=== PATIENT | female | born 1960 | race Caucasian/White ===

== ENCOUNTER → 2016-05-30 | Outpatient (CLI) | payer BC ==
--- NOTE | 2016-05-31 12:47 | MAMMOGRAPHY REPORT ---
BILATERAL DIGITAL SCREENING MAMMOGRAM TOMOSYNTHESIS WITH CAD: 05/30/2016 CLINICAL HISTORY: Routine screening. Patient has no complaints. TECHNIQUE: Breast tomosynthesis in addition to standard 2D mammography was performed. Current study was also evaluated with a Computer Aided Detection (CAD) system. COMPARISON: Comparison is made to exams dated: 05/22/2014 mammogram, 05/17/2012 mammogram, 05/12/2010 ma mmogram, 05/05/2009 mammogram - [facility], 04/29/2008, and 05/21/2013 mammogram - [facility]. BREAST COMPOSITION: The tissue of both breasts is heterogeneously dense, which may obscure small ma sses. FINDINGS: There are benign rim calcifications within the left breast. No suspicious mass, architec tural distortion or cluster of microcalcifications is seen. IMPRESSION: ACR BI-RADS CATEGORY 1: NEGATIVE There is no mammographic evidence of malignancy. A 1 year screening mammogram is recommended. The p atient will receive written notification of the results. Approximately 10% of breast cancers are not detected with mammography. A negative mammographic repor t should not delay biopsy if a clinically suggestive mass is present. Keke Hinton M.D. ay/:05/30/2016 17:04:35 Skin Care Instructor: Priyanka Duvall, [facility] letter sent: Normal 1/2 BI-RADS Code: ACR BI-RADS Category 1: Negative
== END | disposition home or self-care (01) ==
LOC: C.MAMM 08:21
PROVIDERS: ATTEND Family Medicine
DX: Z12.31 Encounter for screening mammogram for malignant neoplasm of breast (principal)

== ENCOUNTER → 2017-06-01 | Outpatient (CLI) | payer OTHER ==
--- NOTE | 2017-06-05 12:41 | MAMMOGRAPHY REPORT ---
BILATERAL DIGITAL SCREENING MAMMOGRAM TOMOSYNTHESIS WITH CAD: 06/01/2017 CLINICAL HISTORY: Routine screening. Patient has no complaints. TECHNIQUE: Breast tomosynthesis in addition to standard 2D mammography was performed. Current study was also evaluated with a Computer Aided Detection (CAD) system. COMPARISON: Comparison is made to exams dated: 05/30/2016 mammogram, 05/26/2015 mammogram, 05/22/2014 m ammogram, 05/21/2013 mammogram, 05/17/2012 mammogram, and 05/17/2011 mammogram - [facility]. BREAST COMPOSITION: The tissue of both breasts is heterogeneously dense, which may obscure small mas ses. FINDINGS: No suspicious masses, calcifications, or areas of architectural distortion are noted in ei ther breast. There has been no significant interval change compared to prior exams. IMPRESSION: ACR BI-RADS CATEGORY 1: NEGATIVE There is no mammographic evidence of malignancy. A 1 year screening mammogram is recommended. The pa tient will receive written notification of the results. Approximately 10% of breast cancers are not detected with mammography. A negative mammographic report should not delay biopsy if a clinically suggestive mass is present. Danay Sarmiento M.D. ah/:06/01/2017 15:35:40 Experimental Welder: Priyanka Wahl RT(R)(M), [facility] letter sent: Normal 1/2 BI-RADS Code: ACR BI-RADS Category 1: Negative
== END | disposition home or self-care (01) ==
LOC: C.MAMM 08:12
PROVIDERS: ATTEND Family Medicine
DX: Z12.31 Encounter for screening mammogram for malignant neoplasm of breast (principal)

== ENCOUNTER 2024-07-29 09:34 | Inpatient (IN) ==
[2024-07-29] MEDS: SODIUM CHLORIDE 0.9% 1,000 ML IV ONE (10:20)
[2024-07-29] MEDS: ONDANSETRON INJ 2 MG/ML 2 ML VIAL IV STA (10:20)
[2024-07-29] MEDS: KETOROLAC TROMETHAMINE 15 MG/ML VIAL IV STA (10:23)
[2024-07-29 10:43] LABS: Basophils # (auto) 0.01 K/uL (0.00-0.20); Basophils % (auto) 0.3 %; Eosinophils # (auto) 0.07 K/uL (0.00-0.50); Hematocrit (blood only) 41.5 % (37.0-47.0); Hemoglobin 14.8 g/dl (12.0-16.0); Immature Granulocytes # (auto) 0.02 K/uL (0.01-0.20); Immature Granulocytes % (auto) 0.6 %; Lymphocytes # (auto) 0.59 K/uL (1.20-3.40); Lymphocytes % (auto) 16.7 %; Mean Corpuscular Hemoglobin 34.7 pg (25.0-34.0); Mean Corpuscular Hgb Conc 35.7 g/dL (32.0-36.0); Mean Corpuscular Volume 97.2 fL (80.0-100.0); Mean Platelet Volume 9.4 fL (9.4-12.4); Monocytes # (auto) 0.62 K/uL (0.11-0.59); Monocytes % (auto) 17.6 %; Neutrophils # (auto) 2.22 K/uL (1.40-6.50); Neutrophils % (auto) 62.8 %; Platelet Count 197 K/uL (130-400); RDW Coefficient of Variation 11.9 % (11.5-14.5); RDW Standard Deviation 42.6 fL (36.4-46.3); Red Blood Count 4.27 M/uL (4.20-5.40); White Blood Count 3.53 K/ul (4.8-10.8)
[2024-07-29 11:00] LABS: INR 0.9 (0.9-1.1); Partial Thromboplastin Time 28 Seconds (21-31); Prothrombin Time 9.9 Seconds (9.0-12.0)
[2024-07-29 11:09] LABS: Albumin Level 3.9 gm/dl (3.4-5.0); BUN Creatinine Ratio 19.2 (10-20); Bilirubin Direct 0.3 mg/dl (0-0.2); Bilirubin,Total 0.7 mg/dl (0.2-1.0); Calcium 9.6 mg/dl (8.6-10.3); Creatinine Clr Calc Pharmacy 79.5 ml/min; Potassium 3.3 mmol/L (3.5-5.1); Total Protein 6.5 gm/dl (6.0-8.3)
--- OUTSIDE RECORDS SUMMARY | 2024-07-29 11:12 | External Medical Summary | Summary of Care ---
Author Name Unknown Organization [facility] Address [address] [place] [address] Phone [phone] Care Team Providers Care Dishwasher Name Role Phone Demetria Santos DO Primary Care Provider [phone] Reason for Visit * Reason Comments eRx-Medication Refill Encounter Details Date Type Department Care Team (Late st Contact Info) Description 07/14/2024 Refill Family Practice [facility] [address] [place] [id number] Donald Kapoor MD [address] [place] [id number] HTN, goal below 130/80 Allergies Active Allergy Reactions Criticality Noted Date Comments Influenza Virus Vacc Hives 12/06/2010 documented as of this encounter (statuses as of 07/16/2024) Medications Doxylamine Succinate (Sleep) 25 MG Oral Tablet (Unisom) Take 1 Tablet by mouth at bedtime as needed. Active Nicotine Polacrilex 4 MG Mouth/Throat Gum Take 1 Each by mouth daily first thing in the morning. Active SUMAtriptan Succinate 100 MG Oral Tablet (Imitrex)Indicat ions:Migraine with aura and without status migrainosus, not intractable One pill by mouth at onset of migraine. May repeat in 2 hours but not more than 2 tablets in 24 hours 27 Tablet 3 03/05/20 24 Active amLODIPine Besylate 2.5 MG Oral Tablet (Norvasc)Indicat ions:HTN, goal below 130/80 Take 1 Tablet by mouth in the morning. 90 Tablet 3 03/30/19 25 Active Hydrocortisone (Perianal) 2.5 % External CreamIndications :Hemorrhoids, external without complications Administer into the rectum 2 times a day. For 2 weeks. 28 g 1 03/30/19 25 Active Escitalopram Oxalate 10 MG Oral Tablet (Lexapro)Indicat ions:Depression, major, in remission (HCC) TAKE 1 TABLET BY MOUTH ONCE DAILY IN THE MORNING 30 Tablet 5 04/25/19 25 Active Albuterol Sulfate HFA 108 (90 Base) MCG/ACT Inhalation Aerosol SolutionIndicati ons:Pneumonia of right lung due to infectious organism, unspecified part of lung Inhale 2 Puffs by mouth every 4 hours as needed for Dyspnea or Wheezing. 18 g 05/01/19 25 Active Naproxen 500 MG Oral Tablet (Naprosyn)Indica tions:Chronic midline low back pain without sciatica One pill by mouth twice a day with food. 180 Tablet 1 06/03/19 25 Active Omeprazole 40 MG Oral Capsule Delayed Release (PriLOSEC)Indica tions:Acute gastritis without hemorrhage, unspecified gastritis type TAKE 1 CAPSULE BY MOUTH ONCE DAILY IN THE MORNING 1 HOUR BEFORE FIRST MEAL OF THE DAY. 30 Capsule 1 06/19/19 25 Active Cefuroxime Axetil 250 MG Oral Tablet (Ceftin)Indicati ons:Suspected UTI Take 1 Tablet by mouth in the morning and 1 Tablet before bedtime. Do all this for 5 days. 10 Tablet 07/14/19 25 025 Active Lisinopril 40 MG Oral TabletIndication s:HTN, goal below 130/80 TAKE 1 TABLET BY MOUTH IN THE MORNING 90 Tablet 07/16/19 25 Active Lisinopril 40 MG Oral TabletIndication s:HTN, goal below 130/80 Take 1 Tablet by mouth in the morning. 90 Tablet 1 01/25/20 24 025 Discontinued documented as of this encounter (statuses as of 07/16/2024) Active Problems Problem Noted Date Diagnosed Date PVC (premature ventricular contraction) 04/04/19 20 Allergy to influenza vaccine 03/16/2017 Other seborrheic keratosis 04/22/2013 Neoplasm of uncertain behavior of skin 02/10/201 4 Backache 03/02/2009 Depression, major, in remission Overview (03/02/2009): failed celexa Migraine with aura Overview (03/02/2009): 10+ per year Esophageal reflux documented as of this encounter (statuses as of 07/16/2024) Resolved Problems Problem Noted Date Diagnosed Date Resolved Date Anemia 05/07/2014 03/16/2017 General medical exam 04/16/2014 018 General medical exam 05/03/2013 018 Right shoulder pain 05/03/2013 03/16/19 18 Breast cancer screening 04/12/201206/2017 General medical exam 04/12/2012 018 Acute sinusitis 12/06/2010 07/17/2015 Special screening for malign ant neoplasms, colon 12/06/2010 07/17/2015 Backache 11/26/2009 11/26/2009 ADVANCE DIRECTIVE INFORMATION 12/15/2005 07/17/2015 Overview (12/15/2005): No, Advance Directive brochure given to patient. Generalized osteoarthritis 0 07/17/2015 Overview (03/02/2009): primary back uses celebrex, occ alleve Urticaria 07/17/2015 Overview (03/02/2009): chronic on zyrtec Menopausal and postmenopausal disorder 07/17/2015 Overview (06/23/2010): on premarin documented as of this encounter (statuses as of 07/16/2024) Immunizations Name Administration Dates Next Due COVID-19 mRNA, LNP-s, No Pre serve, 2-Dose Series (Givey) 06/26/2020,06/05/2020 COVID-19, LNP-s, No Preserve , Filiberto-sucrose, Ages 12+ (Givey) 09/14/2021 COVID-19, MRNA-LNP, 24-25, P R, 30MCG/0.3ML, IM, 12YRS AND ABOVE (Givey-[facility]) 12/06/2023 Covid-19, Mrna, Lnp-s, Pf, B ivalent, 30 Mcg, IM, 12 yrs and above (Pfizer) 09/28/2022 Pneumococcal Conjugate Vaccine, 20-valent (Prevn ar20) 03/30/2024 TDAP (age 10 and older)(Boostrix) 09/04/2020 TDAP, Age 7 and older, IM (Adacel) 06/23/2010 Zoster Vaccine Recombinant (Shingrix) 10/30/2018 ,08/03/2018 documented as of this encounter Social History Tobacco Use Types Packs/Day Years Used Date Smoking Tobacco: Former Cigarettes 0.8 20 0 03/13/1980 - 03/13/2000 Smokeless Tobacco: Never Alcohol Use Standard Drinks/Week Comments Yes 0 (1 standard drink = 0.6 oz pur e alcohol) 2-3 drinks/day PHQ-2 Answer Date Recorded PHQ Adult Total Score 1 09/26/2023 Hunger Vital Sign Answer Date Recorded Within the past 12 months, y ou worried that your food would run out before you got the money to buy more. Never true 03/18/19 25 Within the past 12 months, t he food you bought just didn't last and you didn't have money to get more. Never true 03/18/2024 Childcare Answer Date Recorded Do you feel overwhelmed with taking care of a child, family member or friend? No 03/18/2024 Does your family need help f inding childcare? (Household - for ages 0-17 years) Not on file 03/18/2024 Clothing Answer Date Recorded Have you been unable to get clothing when it was really needed? No 03/18/2024 Is your family able to get c lothes or diapers when needed? (Household - for ages 0-17 years) Not on file 03/18/2024 Personal Safety Answer Date Recorded Do you feel unsafe or have concerns for your saf ety? No 03/18/2024 Do you have concerns for you r family's safety? (Household - for ages 0-17 years) Not on file 03/18/2024 Utilities Answer Date Recorded Do you have trouble paying y our heating, water, or electric bill? No 03/18/2024 Is your family able to pay t he heat, water, or electric bill? (Household - for ages 0-17 years) Not on file 03/18/2024 Does your family have access to good internet? (Household - for ages 0-17 years) Not on file 03/18/2024 Employment Status Answer Date Recorded Are you unemployed or without regular income? No 03/18/2024 Does the household have a re gular source of income? (Household - for ages 0-17 years) Not on file 03/18/2024 Social Connections Answer Date Recorded How often do you feel lonely or isolated from th ose around you? Never 03/18/2024 Financial Resource Strain Answer Date R ecorded Do you have any trouble payi ng for your medications, or do you think you might in the future? No 03/18/2024 Does your family have troubl e paying for medicine? (Household - for ages 0-17 years) Not on file 03/18/2024 Transportation Needs Answer Date Record ed Do you have trouble getting a ride to medical visits or work? (Adult - for ages 18 years and over) Not on file 03/18/2024 Does your family have a hard time getting a ride to doctors visits? (Household - for ages 0-17 years) Not on file 03/18/2024 Has lack of transportation k ept you from medical appointments, meetings, work, or from getting things needed for daily living? Check all that apply. No 03/18/2024 Do you (or your family) have trouble finding or paying for a ride (transportation)? (Household - for ages 0-17 years) Not on file 03/18/2024 Housing Stability Answer Date Recorded Do you currently live in a s helter or have no steady place to sleep at night? No 03/18/2024 Do you think you are at risk of becoming homeless? (Adult - for ages 18 years and over) Not on file 03/18/2024 Does your family worry about paying for your home or becoming homeless? (Household - for ages 0-17 years) Not on file 0 03/18/2024 Are you homeless or worried that you might be in the future? No 03/18/2024 Are you (or your family) ricardo eless or worried that you might be in the future? (Household - for ages 0-17 years) Not on file Food Insecurity Answer Date Recorded Do you need food for this week? No 03/18/2024 Are you able to get enough f ood for your family? (Household - for ages 0-17 years) Not on file 03/18/2024 Does your family need food t his week? (Household - for ages 0-17 years) Not on file 03/18/2024 Do you always have enough fo od for your family? (Household - for ages 0-17 years) Not on file 03/18/2024 Food Insecurity Answer Date Recorded Within the past 12 months, y ou worried that your food would run out before you got the money to buy more. Never true 03/18/19 25 Within the past 12 months, t he food you bought just didn't last and you didn't have money to get more. Never true 03/18/2024 Do you need food for this week? No 03/18/2024 Comments No Sex and Gender Information Value Date Recorded Sex Assigned at Female 08/22/2019 10:42 AM EDT Legal Sex Female 7:06 AM EST Gender Identity Female 08/22/2019 10:42 AM EDT Sexual Orientation Straight 08/22/2019 10 :42 AM EDT Occupation Industry Job Start Date Job End Date Not on file Not on file Not on file Not on file documented as of this encounter Miscellaneous Notes * Telephone Encounter - Candi Carrera RPh - 07/15/2024 8:55 PM EDTSigned Prescriptions: Disp Refills Lisinopril 40 MG Oral Tablet 90 Tab*0 Sig: TAKE 1 TABLET BY MOUTH IN THE MORNINGAuthorizing Provider: DEMETRIA SANTOS User: CANDI CARRERA documented in this encounter Plan of Treatment Upcoming Encounters Date Type Department Care Team (Late st Contact Info) Description 09/26/2024 9:15 AM EDT Imaging Radiology [address], [place] [address] [place] [phone] 10/01/2024 1:40 PM EDT Office Visit Family Practice [facility] [address] [place] [address] Demetria Santos, [address] [place] [phone] Scheduled Procedures Name Priority Associated Diagnoses Date/Ti me COLONOSCOPY FLEXIBLE PROXIMA L DIAGNOSTIC Recall Special screening for malignant neoplasms, colon Health Maintenance Due Date Last Done Comments Cologuard 2006 Fecal Occult Blood Test 2006 Sigmoidoscopy 2006 Depression Monitoring 09/25/2024 09/26/2023 Mammogram 09/25/2024 09/26/2023, 09/10, 09/14/2021, Additional history exists DXA Scan 11/03/2026 11/03/2021, 09/10, 08/11/2010 Lipid Panel 10/13/2027 10/12/2022, 07/0 07/2021, 11/06/2020, Additional history exists DTap/Tdap Vaccines (3 - Td or Tdap) 09/04/2030 09/04/2020, 06/23/2010 Colonoscopy 06/27/2032 06/27/2022, 06/11, 02/21/2011 Colorectal Cancer Screening 06/27/2032 Zoster Vaccines Completed 10/30/2018, 08/03/2018 COVID-19 Vaccine Discontinued 12/06/2023, , 09/14/2021, Additional history exists Pneumococcal Vaccine: 50+ Years Completed 03/30/2024 HIV Screening Discontinued HPV (Gardasil) Vaccine Aged Out No lo nger eligible based on patient's age to complete this topic Hepatitis B Vaccine Aged Out No longe r eligible based on patient's age to complete this topic MENINGOCOCCAL (MENACTRA/MENVEO) Aged Out No longer eligible based on patient's age to complete this topic Meningitis B Vaccine (Bexsero/Trumemba) Aged Out No longer eligible based on patient's age to complete this topic documented as of this encounter Medical Devices Not on filedocumented as of this encounter Visit Diagnoses Diagnosis HTN, goal below 130/80 Unspecified essential hypertension documented in this encounter Care Teams Dishwasher Relationship Specialty Start Date End Date Demetria Santos DO [address] [place] [phone] PCP - General Family Medicine 08/03/18 documented as of this encounter
--- OUTSIDE RECORDS SUMMARY | 2024-07-29 11:12 | External Medical Summary | Summary of Care ---
Author Name Unknown Organization [facility] Address [address] [place] [address] Phone [phone] Care Team Providers Care Software Educator Name Role Phone Demetria Santos DO Primary Care Provider [phone] Reason for Visit * Reason Comments eRx-Medication Refill Encounter Details Date Type Department Care Team (Late st Contact Info) Description 06/17/2024 Refill Family Practice [facility] [address] [facility] [place] [phone] Demetria Santos DO [address] [place] [phone] Acute gastritis without hemorrhage, unspecified gastritis type Allergies Active Allergy Reactions Criticality Noted Date Comments Influenza Virus Vacc Hives 12/06/2010 documented as of this encounter (statuses as of 06/18/2024) Medications Doxylamine Succinate (Sleep) 25 MG Oral Tablet (Unisom) Take 1 Tablet by mouth at bedtime as needed. Active Nicotine Polacrilex 4 MG Mouth/Throat Gum Take 1 Each by mouth daily first thing in the morning. Active Lisinopril 40 MG Oral TabletIndication s:HTN, goal below 130/80 Take 1 Tablet by mouth in the morning. 90 Tablet 1 01/25/20 24 Active SUMAtriptan Succinate 100 MG Oral Tablet [...] MORNING 30 Tablet 5 04/25/19 25 Active Benzonatate 100 MG Oral CapsuleIndicatio ns:Pneumonia of right lung due to infectious organism, unspecified part of lung Take 1 Capsule by mouth 3 times a day as needed for Cough. 30 Capsule 1 05/01/19 25 Active Albuterol Sulfate HFA 108 (90 [...] DAY. 30 Capsule 1 06/19/19 25 Active Omeprazole 40 MG Oral Capsule Delayed Release (PriLOSEC)Indica tions:Acute gastritis without hemorrhage, unspecified gastritis type Take 1 Capsule by mouth in the morning. 1 hour before the first meal of the day. 90 Capsule 3 06/13/19 24 025 Discontinued documented as of this encounter (statuses as of 06/18/2024) Active Problems Problem Noted Date Diagnosed Date PVC (premature ventricular contraction) 04/04/19 Allergy to influenza vaccine 03/16/2017 Other seborrheic keratosis 04/22/2013 Neoplasm of uncertain behavior of skin 4 Backache 03/02/2009 Depression, major, in remission Overview (03/02/2009): failed celexa Migraine with aura Overview (03/02/2009): 10+ per year Esophageal reflux documented as of this encounter (statuses as of 06/18/2024) Resolved Problems Problem Noted Date Diagnosed Date [...] as of this encounter (statuses as of 06/18/2024) Immunizations Name Administration Dates Next Due COVID-19 mRNA, LNP-s, No Pre serve, 2-Dose Series (LoggedIn) 06/26/2020,06/05/2020 COVID-19, LNP-s, No Preserve , Filiberto-sucrose, Ages 12+ (LoggedIn) 09/14/2021 COVID-19, MRNA-LNP, 24-25, P R, 30MCG/0.3ML, IM, 12YRS AND ABOVE (LoggedIn-Comirnaty) 12/06/2023 Covid-19, Mrna, Lnp-s, Pf, B ivalent, [...] encounter Miscellaneous Notes * Telephone Encounter - Marisol Brenner RPh - 06/18/2024 12:42 PM EDT Signed Prescriptions: Disp Refills Omeprazole 40 MG Oral Capsule Delayed Rele*30 Cap*1 Sig: TAKE 1CAPSULE BY MOUTH ONCE DAILY IN THE MORNING 1 HOUR BEFORE FIRST MEAL OF THE DAY.Authorizing Provider: DEMETRIA SANTOS User: MARISOL BRENNER documented in this encounter Plan of Treatment Upcoming Encounters Date Type Department Care Team (Late st Contact Info) Description 09/26/2024 9:15 AM EDT Imaging Radiology [facility] [facility], [place] [address] [place] [phone] Scheduled Procedures Name Priority Associated Diagnoses Date/Ti me COLONOSCOPY FLEXIBLE PROXIMA L DIAGNOSTIC Recall Special screening for malignant neoplasms, colon Health Maintenance Due Date Last Done Comments Cologuard 2006 Fecal Occult Blood Test 2006 Sigmoidoscopy 2006 Depression Monitoring 09/25/2024 09/26/2023 Mammogram 09/25/2024 09/26/2023, 09/10, 09/14/2021, Additional history exists DXA Scan 11/03/2026 11/03/2021, 09/10, 08/11/2010 Lipid Panel 10/13/2027 10/12/2022, 070 07/2021, 11/06/2020, Additional history exists DTap/Tdap Vaccines [...] as of this encounter Visit Diagnoses Diagnosis Acute gastritis without hemorrhage, unspecified gastritis type documented in this encounter Care Teams Software Educator Relationship Specialty Start Date End Date Demetria Santos DO [address] [place] [id number] PCP - General Family Medicine 08/03/18 documented as of this encounter
--- OUTSIDE RECORDS SUMMARY | 2024-07-29 11:12 | External Medical Summary | Summary of Care ---
Author Name Unknown Organization [facility] Address [address] [place] [address] Phone [phone] Care Team Providers Care Jig Boring Machine Operator For Metal Name Role Phone Ariella Starks DO Primary Care Provider [phone] Reason for Visit * Reason Comments Urinary Tract Infection Symptoms Encounter Details Date Type Department Care Team (Late st Contact Info) Description 07/13/2024 3:40 PM EDT Office Visit [facility] [address] [facility] [address] July, Mikal Cooper MD [address] [place] [address] Suspected UTI* Allergies Active Allergy Reactions Criticality Noted Date Comments Influenza Virus Vacc Hives 12/06/2010 documented as of this encounter (statuses as of 07/13/2024) Medications Doxylamine Succinate (Sleep) 25 MG Oral Tablet (Unisom) Take 1 Tablet by mouth at bedtime as needed. Active Nicotine Polacrilex 4 MG Mouth/Throat Gum Take 1 Each by mouth daily first thing in the morning. Active Lisinopril 40 MG Oral TabletIndications :HTN, goal below 130/80 Take 1 Tablet by mouth in the morning. 90 Tablet 1 01/25/20 24 Active SUMAtriptan Succinate 100 MG Oral Tablet (Imitrex)Indicati ons:Migraine with aura and without status migrainosus, not intractable One pill by mouth at onset of migraine. May repeat in 2 hours but not more than 2 tablets in 24 hours 27 Tablet 3 03/05/20 24 Active amLODIPine Besylate 2.5 MG Oral Tablet (Norvasc)Indicati ons:HTN, goal below 130/80 Take 1 Tablet by mouth in the morning. 90 Tablet 3 03/30/19 25 Active Hydrocortisone (Perianal) 2.5 % External CreamIndications: Hemorrhoids, external without complications Administer into the rectum 2 times a day. For 2 weeks. 28 g 1 03/30/19 25 Active Escitalopram Oxalate 10 MG Oral Tablet (Lexapro)Indicati ons:Depression, major, in remission (HCC) TAKE 1 TABLET BY MOUTH ONCE DAILY IN THE MORNING 30 Tablet 5 04/25/19 25 Active Albuterol Sulfate HFA 108 (90 Base) MCG/ACT Inhalation Aerosol SolutionIndicatio ns:Pneumonia of right lung due to infectious organism, unspecified part of lung Inhale 2 Puffs by mouth every 4 hours as needed for Dyspnea or Wheezing. 18 g 05/01/19 25 Active Naproxen 500 MG Oral Tablet (Naprosyn)Indicat ions:Chronic midline low back pain without sciatica One pill by mouth twice a day with food. 180 Tablet 1 06/03/19 25 Active Omeprazole 40 MG Oral Capsule Delayed Release (PriLOSEC)Indicat ions:Acute gastritis without hemorrhage, unspecified gastritis type TAKE 1 CAPSULE BY MOUTH ONCE DAILY IN THE MORNING 1 HOUR BEFORE FIRST MEAL OF THE DAY. 30 Capsule 1 06/19/19 25 Active Cefuroxime Axetil 250 MG Oral Tablet (Ceftin)Indicatio ns:Suspected UTI Take 1 Tablet by mouth in the morning and 1 Tablet before bedtime. Do all this for 5 days. 10 Tablet 07/14/19 25 025 Active Benzonatate 100 MG Oral CapsuleIndication s:Pneumonia of right lung due to infectious organism, unspecified part of lung Take 1 Capsule by mouth 3 times a day as needed for Cough. 30 Capsule 1 05/01/19 25 025 Discontin ued(Medic ation List Clean Up) traZODone HCl 50 MG Oral Tablet (Desyrel) Take 1 Tablet by mouth at bedtime. 06/30/19 25 025 Discontin ued(Medic ation List Clean Up) documented as of this encounter (statuses as of 07/13/2024) Active Problems Problem Noted Date Diagnosed Date PVC (premature ventricular contraction) 04/04/19 20 Allergy to influenza vaccine 03/16/2017 Other seborrheic keratosis 04/22/2013 Neoplasm of uncertain behavior of skin 4 Backache 03/02/2009 Depression, major, in remission Overview (03/02/2009): failed celexa Migraine with aura Overview (03/02/2009): 10+ per year Esophageal reflux documented as of this encounter (statuses as of 07/13/2024) Resolved Problems Problem Noted Date Diagnosed Date [...] as of this encounter (statuses as of 07/13/2024) Immunizations Name Administration Dates Next Due COVID-19 mRNA, LNP-s, No Pre serve, 2-Dose Series (Lesson [employer]) 06/26/2020,06/05/2020 COVID-19, LNP-s, No Preserve , Filiberto-sucrose, Ages 12+ (Pfizer) 09/14/2021 COVID-19, MRNA-LNP, 24-25, P R, 30MCG/0.3ML, IM, 12YRS AND ABOVE (Pfizer-Comirnaty) 12/06/2023 Covid-19, Mrna, Lnp-s, Pf, B ivalent, [...] on file documented as of this encounter Last Filed Vital Signs Vital Sign Reading Time Taken Comments Blood Pressure 114/78 07/13/2024 3:41 PM EDT Pulse 84 07/13/2024 3:41 PM EDT Temperature 36.4 °C (97.6 °F) 07/13/2024 3:41 PM ED T Respiratory Rate - - Oxygen Saturation 97% 07/13/2024 3:41 PM EDT Inhaled Oxygen Concentration - - Weight 53.3 kg (117 lb 9.6 oz) 07/13/2024 3:41 P M EDT Height - - Body Mass Index 22.97 05/01/2024 9:40 AM EST documented in this encounter Progress Notes * Mikal Moncada MD - 07/13/2024 3:50 PM EDT Images from the original note were not included. Subjective Courtney Matos is a 64 year old female that presents for Urinary Tract Infection Symptoms History of Present Illness Courtney Matos is a 64 year old female who presents with UTI symptoms. She began experiencing urinary symptoms three days ago, initially with malodorous urine. Last night, dysuria developed, and this morning, she noticed hematuria with pink discoloration when wiping. She experiences chills associated with urination, coinciding with the burning sensation. No significant changes in her chronic back pain. No fever, vomiting, or body aches. She has not used any rcjw-ozd-nxwtxrb medications for symptom relief yet. She has no known allergies to antibiotics. She has been prescribed cefdinir in the past for similarinfections, which she takes twice a day with food for five days. Objective BP 114/78 | Pulse 84 | Temp 97.6 °F (36.4 °C) | Wt 117 lb 9.6 oz (53.3 kg) | SpO2 97% | BMI 22.97kg/m² | BSA 1.5 m² Physical Exam Physical Exam Vitals reviewed. Constitutional: General: She is not in acute distress. Pulmonary: Effort: Pulmonary effort is normal. No respiratory distress. Abdominal: General: There is no distension. Palpations: Abdomen is soft. Tenderness: There is no right CVA tenderness or left CVA tenderness. Neurological: General: No focal deficit present. Mental Status: She is alert. Results Assessment and Plan Assessment & Plan Urinary tract infection Acute UTI with dysuria, hematuria, and malodorous urine. No signs of pyelonephritis. Cefdinir chosen for high efficacy. Urine culture requested for confirmation. - Prescribed cefdinir 300 mg BID with food for 5 days. Start tonight, continue BID. - Encouraged increased fluid intake. - Recommended OTC Azo for dysuria, advised on urine discoloration. - Obtained urine sample for culture. - Advised on mild benefit of cranberry juice for prevention. - Sent prescription to [facility] pharmacy. Visit Diagnoses and Orders 1. Suspected UTI Cefuroxime Axetil 250 MG Oral Tablet (Ceftin), CULTURE, URINE, QUANTITATIVE Wrap-Up Follow Up: Return if symptoms worsen or fail to improve. Text in this note was generated using an [employer] documentation service. I discussed the use of a device to record and summarize our discussion today. All persons present during the encounter consented to its use. documented in this encounter Nursing Notes * oMna Ontiveros CCMA - 07/13/2024 3:39 PM EDT Pt is here today for maybe UTI pt stated it started her urine had a odor last week pt has n lower back pain or front lower abd pain only the burning when she goes ot bathroom and she noticed her urine was slightly pink today when she wiped that is the only time she saw that color pt had no fevers pt did take her medication today documented in this encounter Plan of Treatment Upcoming Encounters Date Type Department Care Team (Late st Contact Info) Description 09/26/2024 9:15 AM EDT Imaging Radiology [facility] [address] [place] [phone] 10/01/2024 1:40 PM EDT Office Visit Family Practice [facility] [address] [place] [address] Ariella Starks DO [address] [place] [address] Scheduled Orders Name Type Priority Associated Diagnoses Orde r Schedule CULTURE, URINE, QUANTITATIVE Lab Routine Suspected UTI Ordered: 07/13/2024 Scheduled Procedures Name Priority Associated Diagnoses Date/Ti me COLONOSCOPY FLEXIBLE PROXIMA L DIAGNOSTIC Recall Special screening for malignant neoplasms, colon Health Maintenance Due Date Last Done Comments Cologuard 2006 Fecal Occult Blood Test 2006 Sigmoidoscopy 2006 Depression Monitoring 09/25/2024 09/26/2023 Mammogram 09/25/2024 09/26/2023, 09/10, 09/14/2021, Additional history exists DXA Scan 11/03/2026 11/03/2021, 09/10, 08/11/2010 Lipid Panel 10/13/2027 10/12/2022, 07/07/2021, 11/06/2020, Additional history exists DTap/Tdap Vaccines (3 [...] as of this encounter Visit Diagnoses Diagnosis Suspected UTI- Primary documented in this encounter Care Teams Jig Boring Machine Operator For Metal Relationship Specialty Start Date End Date Ariella Starks DO [address] [place] [id number] PCP - General Family Medicine 08/03/18 documented as of this encounter"
--- OUTSIDE RECORDS SUMMARY | 2024-07-29 11:12 | External Medical Summary ---
Author Name Unknown Address Unknown Organization [id number]:[facility] [address] [facility] [address] Laboratory Report Ordering Provider Test Date Status 07/13/2024 16:10:13 Final <10,000 colonies/ml mixed no rmal alesia Observation Date Value Abnormality Reference (Units ) Status Bacteria identified in Specimen by Culture 07/13/2024 16:10:13 [id number]^ESCHE RICHIA COLI Abnormal Final >100,000 colonies/mL Escheri rogelio coli Performing Location [facility] - [address] [facility] [address] Ordering Provider Test Date Status 07/13/2024 16:10:13 Final Observation Date Value Abnormality Reference (Units ) Status Amoxicillin/Clavulanic Acid 07/13/2024 16:10:13 <=2 Susceptible Final Ampicillin + Sulbactam 07/13/2024 16:10:13 <=2 Susceptible Final Cefazolin 07/13/2024 16:10:13 <=1 Susceptible Final Resistance to cefazolin pred icts resistance to all oral cephalosporins, unless individually tested. Contact [facility] for additional therapy options. Cefepime susceptibility 07/13/2024 16:10:13 <=0.12 Suscep tible Final Ceftriaxone suceptibility 07/13/2024 16:10:13 <=0.25 Susc eptible Final Ciprofloxacin 07/13/2024 16:10:13 <=0.06 Susceptible Final Due to serious side effects, the FDA has advised against using Ciprofloxacin to treat uncomplicated UTIs and respiratory tract infections unless there are no alternative treatment options. Gentamicin susceptibility 07/13/2024 16:10:13 <=1 Susc eptible Final Nitrofurantoin susceptibility 07/13/2024 16:10:13 <=16 Susceptible Final Piperacillin + Tazobactamsusceptibility 07/13/2024 16:10:13 <=4 Susceptible Final TMP-SMZ susceptibility 07/13/2024 16:10:13 <=20 Suscept ible Final Test: Culture, Urine, Quant itative
Specimen Source: Urine, Clean Catch
Specimen Type: Urine
Specimen Date: 07/13/2024 1610
Result Date: 07/16/2024 0840
Result Status: Final result
Abnormal: Yes
Resulting Lab: [facility]
[address]
[place] [address]

CULTURE

>100,000 colonies/mL Escherichia coli (Abnormal)

<10,000 colonies/ml mixed normal alesia

SUSCEPTIBILITY

Escherichia coli
METHOD MICROBROTH
DILUTIONS

AMOXICILLIN/CLAVULANIC ACID <=2 Susceptible
AMPICILLIN/SULBACTAM <=2 Susceptible
CEFAZOLIN <=1 Susceptible
[1]
CEFEPIME <=0.12 Susceptible
CEFTRIAXONE <=0.25 Susceptible
CIPROFLOXACIN <=0.06 Susceptible
[2]
GENTAMICIN <=1 Susceptible
NITROFURANTOIN <=16 Susceptible
PIPERACILLIN TAZOBACTAM <=4 Susceptible
TRIMETH/SULFAMETHOXAZOLE <=20 Susceptible

[1] Resistance to cefazolin predicts resistance to all oral cephalosporins,
unless individually tested. Contact [facility] for additional therapy
options.

[2] Due to serious side effects, the FDA has advised against using
Ciprofloxacin to treat uncomplicated UTIs and respiratory tract infections
unless there are no alternative treatment options.

null Performing Location [facility] - [address] [facility] [address]
--- OUTSIDE RECORDS SUMMARY | 2024-07-29 11:12 | External Medical Summary ---
Author Name Unknown Address Unknown Organization K0G:[facility] [place] [address] - [address] [place] [address] Laboratory Report Ordering Provider Test Date Status EMILIANO YAP 07/26/2024 11:53:43 Final Observation Date Value Abnormality Reference (Units ) Status WBC, Total 07/26/2024 11:53:43 6.49 4.00-10.8 0 (K/uL) Final RBC 07/26/2024 11:53:43 4.09 3.85-5.15 (M/uL) Final Hemoglobin 07/26/2024 11:53:43 14.5 12.0-15.3 (g/dL) Final Anemia reflex testing trigge rs on a HGB < 12.0 for Females and HGB < 13.0 for Males in accordance with the WHO Anemia Guidelines
Anemia reflex testing triggers on a HGB < 12.0 for Females and HGB < 13.0 for Males in accordance with the WHO Anemia Guidelines HCT 07/26/2024 11:53:43 42.5 36.0-45.2 (%) Final MCV 07/26/2024 11:53:43 103.9 81.5-97.5 (fL) Final MCH 07/26/2024 11:53:43 35.5 27.0-34.0 (pg) Final MCHC 07/26/2024 11:53:43 34.1 32.0-36.0 (g/dL) Final RDW 07/26/2024 11:53:43 11.7 11.5-15.5 (%) Final Platelets 07/26/2024 11:53:43 142 140-400 (K /uL) Final MPV 07/26/2024 11:53:43 10.5 6.6-11.1 ( fL) Final Performing Location [facility] - [address] [place] [address]
--- OUTSIDE RECORDS SUMMARY | 2024-07-29 11:12 | External Medical Summary | Summary of Care ---
Author Name Unknown Organization [facility] Address [address] [place] [address] Phone [phone] Care Team Providers Care Cosmetic Maker Name Role Phone Demetria Santos DO Primary Care Provider [phone] Reason for Visit * Reason Onset Date Comments Medication Refill 06/01/2024 Encounter Details Date Type Department Care Team (Late st Contact Info) Description 06/01/2024 Refill Family Practice [facility] [address] [facility] [place] [address] Demetria Santos DO [address] [facility] [place] [address] Chronic midline low back pain without sciatica Allergies Active Allergy Reactions Criticality Noted Date Comments Influenza Virus Vacc Hives 12/06/2010 documented as of this encounter (statuses as of 06/02/2024) Medications Doxylamine Succinate (Sleep) 25 MG Oral Tablet (Unisom) Take 1 Tablet by mouth at bedtime as needed. Active Nicotine Polacrilex 4 MG Mouth/Throat Gum Take 1 Each by mouth daily first thing in the morning. Active Omeprazole 40 MG Oral Capsule Delayed Release (PriLOSEC)Indicat ions:Acute gastritis without hemorrhage, unspecified gastritis type Take 1 Capsule by mouth in the morning. 1 hour before the first meal of the day. 90 Capsule 3 06/13/19 24 Active Lisinopril 40 MG Oral TabletIndications :HTN, [...] 04/25/19 25 Active Benzonatate 100 MG Oral CapsuleIndication s:Pneumonia [...] food. 180 Tablet 1 06/03/19 25 Active Naproxen 500 MG Oral Tablet (Naprosyn)Indicat ions:Chronic midline low back pain without sciatica One pill by mouth twice a day with food. 180 Tablet 1 11/02/19 24 025 Discontin ued(Refil l) documented as of this encounter (statuses as of 06/02/2024) Active Problems Problem Noted Date Diagnosed Date PVC (premature ventricular contraction) 04/04/19 Allergy to influenza vaccine 03/16/2017 Other seborrheic keratosis 04/22/2013 Neoplasm of uncertain behavior of skin 4 Backache 03/02/2009 Depression, major, in remission Overview (03/02/2009): failed celexa Migraine with aura Overview (03/02/2009): 10+ per year Esophageal reflux documented as of this encounter (statuses as of 06/02/2024) Resolved Problems Problem Noted Date Diagnosed Date [...] as of this encounter (statuses as of 06/02/2024) Immunizations Name Administration Dates Next Due COVID-19 mRNA, LNP-s, No Pre serve, 2-Dose Series ([employer]) 06/26/2020,06/05/2020 COVID-19, LNP-s, No Preserve , Filiberto-sucrose, [...] Telephone Encounter - Marisol Brenner RPh - 06/02/2024 10:45 AM EDT Signed Prescriptions: Disp Refills Naproxen 500 MG Oral Tablet (Naprosyn) 180 Ta*1 Sig: One pill bymouth twice a day with food.Authorizing Provider: DEMETRIA SANTOS User: MARISOL BRENNER MA documented in this encounter Plan of Treatment Upcoming Encounters Date Type Department Care Team (Late st Contact Info) Description 09/26/2024 9:15 AM EDT Imaging Radiology [address] [place] [phone] Scheduled Procedures Name Priority Associated Diagnoses [...] as of this encounter Visit Diagnoses Diagnosis Chronic midline low back pain without sciatica documented in this encounter Care Teams Cosmetic Maker Relationship Specialty Start Date End Date Demetria Santos DO [address] [place] [address] PCP - General Family Medicine 08/03/18 documented as of this encounter
--- OUTSIDE RECORDS SUMMARY | 2024-07-29 11:12 | External Medical Summary ---
Author Name Unknown Address Unknown Organization K0G:[facility] - [address] [place] [address] Laboratory Report Ordering Provider Test Date Status EMILIANO YAP 07/26/2024 11:53:43 Final Observation Date Value Abnormality Reference (Units ) Status SYNC LEUKOCYTES IN BLOOD BY AUTOMATED COUNT 07/26/2024 11:53:43 6.49 4.00-10.80 (K/uL) Final Segs 07/26/2024 11:53:43 91.7 Above high normal 40.0-75.0 (%) Final Lymphs % 07/26/2024 11:53:43 3.2 Below low normal 18.0-42.0 (%) Final Monos 07/26/2024 11:53:43 4.6 1.0-11.0 (%) Final Eosinophils 07/26/2024 11:53:43 0.3 0.0-6.0 (%) Final Basos 07/26/2024 11:53:43 0.2 0.0-2.0 (%) Final Absolute Segs 07/26/2024 11:53:43 5.95 1.80-7.70 (K/uL) Final Lymphs, absolute 07/26/2024 11:53:43 0.21 Below low normal 1.00-4.80 (K/ul) Final Monos, Abs 07/26/2024 11:53:43 0.30 0.00-1.10 (K/uL) Final Eos, Abs 07/26/2024 11:53:43 0.02 0.00-0.70 (K/uL) Final Basos, Abs 07/26/2024 11:53:43 0.01 0.00-0.20 (K/uL) Final Performing Location [facility] - [address] [place] [address]
--- OUTSIDE RECORDS SUMMARY | 2024-07-29 11:12 | External Medical Summary | Summary of Care ---
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 Encounter Details Date Type Department Care Team (Late st Contact Info) Description 07/26/2024 11:00 AM EDT Office Visit Family Practice [facility] [address] [facility] [place] [address] Kirk Barker MD [address] [place] [id number] Abdominal pain, epigastric*; NSAID long-term use; Urinary tract infection without hematuria, site unspecified; Alcohol abuse Allergies Active Allergy Reactions Criticality Noted Date Comments Influenza Virus Vacc Hives 12/06/2010 documented as of this encounter (statuses as of 07/26/2024) Medications Doxylamine Succinate (Sleep) 25 MG Oral [...] or Wheezing. 18 g 05/01/19 25 Active Omeprazole 40 MG Oral Capsule Delayed Release (PriLOSEC)Indica tions:Acute gastritis without hemorrhage, unspecified gastritis type TAKE 1 CAPSULE BY MOUTH ONCE DAILY IN THE MORNING 1 HOUR BEFORE FIRST MEAL OF THE DAY. 30 Capsule 1 06/19/19 25 Active Lisinopril 40 MG Oral TabletIndication s:HTN, goal below 130/80 TAKE 1 TABLET BY MOUTH IN THE MORNING 90 Tablet 07/16/19 25 Active Sulfamethoxazole -Trimethoprim 800-160 MG Oral Tablet (Bactrim DS)Indications:U rinary tract infection with hematuria, site unspecified Take 1 Tablet by mouth in the morning and 1 Tablet before bedtime. Do all this for 7 days. Until gone. 14 Tablet 07/25/19 25 2024 Active Famotidine 40 MG Oral Tablet (Pepcid) Take 1 Tablet by mouth 2 times a day as needed for Heartburn. 60 Tablet 2 07/27/19 25 Active Sucralfate 1 GM Oral Tablet (Carafate) Take 1 Tablet by mouth 4 times a day before meals and at bedtime. 120 Tablet 2 07/27/19 25 Active Amoxicillin-Pot Clavulanate 875-125 MG Oral Tablet (Augmentin)Indic ations:Pneumonia of right lung due to infectious organism, unspecified part of lung Take 1 Tablet by mouth in the morning and 1 Tablet before bedtime. Do all this for 10 days. 20 Tablet 05/01/19 25 2024 Discontinued Naproxen 500 MG Oral Tablet (Naprosyn)Indica tions:Chronic midline low back pain without sciatica One pill by mouth twice a day with food. 180 Tablet 1 06/03/19 25 2024 Discontinued(M edication/Dose Changed) documented as of this encounter (statuses as of 07/26/2024) Active Problems Problem Noted Date Diagnosed Date PVC (premature ventricular contraction) 04/04/19 20 Allergy to influenza vaccine 03/16/2017 Other seborrheic keratosis 04/22/2013 Neoplasm of uncertain behavior of skin 4 Backache 03/02/2009 Depression, major, in remission Overview (03/02/2009): failed celexa Migraine with aura Overview (03/02/2009): 10+ per year Esophageal reflux documented as of this encounter (statuses as of 07/26/2024) Resolved Problems Problem Noted Date Diagnosed Date [...] alleve Urticaria 07/17/2015 [facility] (03/02/2009[facility] Menopausal and postmenopausal disorder 07/17/2015 Overview (06/23/2010): on premarin documented as of this encounter (statuses as of 07/26/2024) Immunizations Immunization Administration Dates Next Due COVID-19 mRNA, LNP-s, No Pre serve, 2-Dose Series ([employer]) 06/26/2020,06/05/2020 COVID-19, LNP-s, No Preserve , Filiberto-sucrose, Ages 12+ ([employer]) 09/14/2021 COVID-19, MRNA-LNP, 24-25, P R, 30MCG/0.3ML, IM, 12YRS AND ABOVE ([employer] [employer]) 12/06/2023 Covid-19, Mrna, Lnp-s, Pf, B ivalent, 30 Mcg, IM, 12 yrs and above ([employer]) 09/28/2022 Pneumococcal Conjugate Vaccine, 20-valent (Prevn ar20) [...] drink = 0.6 oz pur e alcohol) 1 bottle wine/day 07/2024. PHQ-2 Answer Date Recorded PHQ Adult Total [...] No 03/18/2024 Does the household have a [facility] source of income? (Household - for ages [...] Sign Reading Time Taken Comments Blood Pressure 110/62 07/26/2024 11:01 AM EDT Pulse 104 07/26/2024 11:01 AM EDT Temperature 37.8 °C (100 °F) 07/26/2024 11:01 AM ED T Respiratory Rate 16 07/26/2024 11:01 AM EDT Oxygen Saturation - - Inhaled Oxygen Concentration - - Weight 52.6 kg (116 lb) 07/26/2024 11:01 AM EDT Height - - Body Mass Index 22.65 05/01/2024 9:40 AM EST documented in this encounter Progress Notes * Kirk Barker MD - 07/26/2024 11:37 AM EDT Images from the original note were not included. 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 X2 wk off &on She experiences a burning sensation in the left upper abdomen, radiating over and down, present forseveral weeks and intensifying four to five days ago. The pain is accompanied by nausea, decreased appetite, and vomiting. She denies black tarry stools. Aogl-cpb-utxpugr famotidine and gas pills have not provided relief. She notes a weight loss of two to three pounds since April, likely due to decreased appetite and nausea. No hx ulcers. Her medical history includes gastric bypass surgery over twenty years ago. She takes naproxen 500 mg once daily and recently completed a ten-day course of Augmentin in April. Started bactrim for UTI this week. She consumes about a bottle of wine daily and is interested in reduce alcohol intake. Has not had treatment for ETOH abuse in past. Not interested in groups/AA. She denies fever, chills, shortness ofbreath, chest pain, or constipation. She reports slight ear pain. Objective BP 110/62 (BP Site: Left Arm, BP Position: Sitting, BP Cuff Size: Regular) | Pulse 104 | Temp 100 °F (37.8 °C) (Tympanic) | Resp 16 | Wt 116 lb (52.6 kg) | BMI 22.65 kg/m² | BSA 1.49 m² Physical Exam VITALS: P- 116 on misty Physical: BP 110/62 (BP Site: Left Arm, BP Position: Sitting, BP Cuff Size: Regular) | Pulse 104 | Temp 100 °F (37.8 °C) (Tympanic) | Resp 16 | Wt 116 lb (52.6 kg) | BMI 22.65 kg/m² | BSA 1.49 m² General-No apparent Distress Head, Eyes, Ears, Nose, Throat--Normocephalic, atraumatic Neck-Supple Lymph-no lymphadenopathy Lungs-Clear to Auscultation bilaterally Tachy, regular, no murmurs, +S1,s2 Abdomen-soft, +epigastric tender, nondistended + bowel sounds Extremities--no edema Neuro-alert & oriented x3 Results Assessment and Plan Assessment & Plan Suspected Gastritis or Peptic Ulcer Disease Burning pain in left upper abdomen, nausea, and vomiting likely due to long-term naproxen, recent antibiotics, and alcohol. Differential includes gastritis versus peptic ulcer disease. Absence of black tarry stools reduces likelihood of bleeding ulcer. - Discontinue naproxen immediately. - Initiate famotidine 40 mg twice daily. Cont PPI daily - Administer sucralfate before meals and at bedtime. - Order blood tests for liver, pancreas, and kidney function. - Advise monitoring for black tarry stools and seek immediate medical attention if she occurs. - Consider endoscopy if symptoms do not improve. Alcohol Use Disorder Consuming one bottle of wine daily. Discussed gradual reduction to prevent withdrawal. Explored therapy and medication options. Naltrexone mentioned as Rx option--will come back to discuss further. - Advise gradual reduction in alcohol intake, starting with three-quarters of a bottle for a week, then half a bottle for a week. - Discuss potential use of naltrexone for craving reduction in future visits. - Provided information on [facility] for individual therapy support. Declined AA Urinary Tract Infection Currently on trimethoprim. Difficulty with pill size. Discussed reducing course to three days basedon guidelines. - Complete a total of six pills of trimethoprim for UTI treatment. General Health Maintenance Emphasized importance of vaccinations to prevent infections. - Ensure up-to-date influenza vaccination. Abdominal pain, epigastric (Primary) - CBC WITH WBC DIFFERENTIAL AND ANEMIA REFLEX WORKUP; Future; Expected date: 07/26/2024 - COMPREHENSIVE METABOLIC PANEL; Future; Expected date: 07/26/2024 - LIPASE; Future; Expected date: 07/26/2024 NSAID long-term use Urinary tract infection without hematuria, site unspecified Alcohol abuse Other orders - Famotidine 40 MG Oral Tablet (Pepcid); Take 1 Tablet by mouth 2 times a day as needed for Heartburn. - Sucralfate 1 GM Oral Tablet (Carafate); Take 1 Tablet by mouth 4 times a day before meals and at bedtime. Wrap-Up Follow Up: Return in about 4 weeks (around 08/23/2024) for Return with AP, Return with Physician. | For: Return with AP, Return with Physician | Check-out note: 1mo PCP or LABOR SPECIALIST for stomach/ETOH I spent a total of 30-39 minutes (exact time 33 mins) on the date of service in preparation, delivery, and documentation of the care provided to Courtney Matos excluding any time spent in the performance of separately billed services. Text in this note was generated using an ambient documentation service. I discussed the use of a device to record and summarize our discussion today. All persons present during the encounter consented to its use. documented in this encounter Plan of Treatment Upcoming Encounters Date Type Department Care Team (Late st Contact Info) Description 09/26/2024 9:15 AM EDT Imaging Radiology [address] [place] [phone] 10/01/2024 1:40 PM EDT Office Visit Family Practice [facility] [address] [place] [address] Ariella Starks DO [address] [place] [address] Pending Results Name Type Priority Associated Diagnoses Date /Time CBC WITH WBC DIFFERENTIAL AND ANEMIA REFLEX WORKUP Lab Routine Abdominal pain, epigastric 07/26/2024 11:53 AM EDT LIPASE Lab Routine Abdominal pain, epigastric 07/26/2024 11:53 AM EDT Scheduled Orders Name Type Priority Associated Diagnoses Orde r Schedule CBC WITH WBC DIFFERENTIAL AND ANEMIA REFLEX WORKUP Lab Routine Abdominal pain, epigastric Expected: 07/26/2024 (Approximate), Expires: 07/26/2025 LIPASE Lab Routine Abdominal pain, epigastric Expected: 07/26/2024 (Approximate), Expires: 07/26/2025 Scheduled Procedures Name Priority Associated Diagnoses Date/Ti [...] Not on filedocumented as of this encounter Results * (ABNORMAL) COMPREHENSIVE METABOLIC PANEL (07/26/2024 11:53 AM EDT) BUN 11 6 - 20 mg/dL 07/26/2024 1:47 PM EDT LABORATORY [facility] 57-10 CREATININE 0.5 0.5 - 1.0 mg/dL 07/26/2024 1:47 PM EDT LABORATORY [facility] 57-10 EGFR >90 >=60 mL/min 07/26/2024 1:47 PM EDT LABORATORY [facility] 57-10 Comment:eGFR is calculated b ased on the CKD-EPI 2020 equation. SODIUM 139 135 - 146 mmol/L 07/26/2024 1:47 PM EDT LABORATORY [facility] 57-10 POTASSIUM 3.6 3.5 - 5.1 mmol/L 07/26/2024 1:47 PM EDT LABORATORY [facility] 57-10 CHLORIDE 100 98 - 107 mmol/L 07/26/2024 1:47 PM EDT LABORATORY [facility] 57-10 CO2 22 22 - 32 mmol/L 07/26/2024 1:47 PM EDT LABORATORY [facility] 57-10 ANION GAP 17(H) 7 - 15 mmol/L 07/26/2024 1:47 PM EDT LABORATORY [facility] 57-10 GLUCOSE 83 70 - 120 mg/dL 07/26/2024 1:47 PM EDT LABORATORY [facility] 57-10 Albumin 3.9 3.8 - 5.0 g/dL 07/26/2024 1:47 PM EDT LABORATORY [facility] 57-10 AST 109(H) 10 - 35 U/L 07/26/2024 1:47 PM EDT LABORATORY [facility] 57-10 Alkaline Phosphatase 140(H) 35 - 130 U/L 07/26/2024 1:47 PM EDT LABORATORY [facility] 57-10 Bilirubin, Total 0.7 <=1.2 mg/dL 07/26/2024 1:47 PM EDT LABORATORY [facility] 57-10 CALCIUM 9.4 8.4 - 10.2 mg/dL 07/26/2024 1:47 PM EDT LABORATORY [facility] 57-10 Protein 5.9(L) 6.0 - 8.3 g/dL 07/26/2024 1:47 PM EDT LABORATORY [facility] 57-10 ALT 81(H) 10 - 35 U/L 07/26/2024 1:47 PM EDT LABORATORY [facility] 57-10 Blood Venous blood specimen / Unknown Venipuncture / Unknown 07/26/2024 11:53 AM EDT 07/26/2024 11:53 AM EDT Kirk Barker MD LAB BLOOD ORDERABLES Fin al Result [facility] [place] [address] documented in this encounter Visit Diagnoses Diagnosis Abdominal pain, epigastric- Primary NSAID long-term use Encounter for long-term (current) use of non-steroidal anti-inflammatories Urinary tract infection without hematuria, site unspecified Alcohol abuse Alcohol abuse, unspecified documented in this encounter Care Teams [employer]ck Whipper Relationship Specialty Start Date End Date Ariella Starks DO [address] [place] [id number] PCP - General Family Medicine 08/03/18 documented as of this encounter"
--- OUTSIDE RECORDS SUMMARY | 2024-07-29 11:12 | External Medical Summary | Summary of Care ---
Author Name Unknown Organization [facility] Address [address] [place] [address] Phone [phone] Care Team Providers Care Media Account Executive Name Role Phone Ariella Starks DO Primary Care Provider [phone] Reason for Visit * Reason Comments Urinary Tract Infection Symptoms Encounter Details Date Type Department Care Team (Late st Contact Info) Description 07/13/2024 3:40 PM EDT [facility] [address] July, Mikal Cooper MD [address] [place] [id number] Suspected UTI* Allergies Active Allergy Reactions [...] mRNA, LNP-s, No Pre serve, 2-Dose Series ([employer]) 06/26/2020,06/05/2020 COVID-19, LNP-s, No Preserve , Filiberto-sucrose, [...] body aches. She has not used any fqcv-put-cajrycs medications for symptom relief yet. She has [...] juice for prevention. - Sent prescription to [facility] pharmacy. Visit Diagnoses and Orders 1. Suspected UTI Cefuroxime Axetil 250 MG Oral Tablet (Ceftin), CULTURE, URINE, QUANTITATIVE Wrap-Up Follow Up: Return if symptoms worsen or fail to improve. Text in this note was generated using an [employer] documentation service. I discussed the use of a device to record and summarize our discussion today. All persons present during the encounter consented to its use. documented in this encounter Nursing Notes * Mona Ontiveros CCMA - 07/13/2024 3:39 PM EDT [...] Description 09/26/2024 9:15 AM EDT Imaging Radiology [facility] [address] [place] [phone] 10/01/2024 1:40 PM EDT Office Visit Family Practice [facility] [address] [place] [address] Arielal Starks DO [address] [place] [address] Scheduled Orders Name Type Priority Associated Diagnoses [...] Primary documented in this encounter Care Teams Media Account Executive Relationship Specialty Start Date End Date Ariella Starks DO [address] [place] [address] PCP - General Family Medicine 08/03/18 documented as of this encounter"
--- OUTSIDE RECORDS SUMMARY | 2024-07-29 11:12 | External Medical Summary ---
Author Name Unknown Address Unknown Organization [id number]:[facility] [address] [place] [address] Laboratory Report Ordering Provider Test Date Status EMILIANO YAP 07/26/2024 11:53:43 Final Observation Date Value Abnormality Reference (Units ) Status BUN 07/26/2024 11:53:43 11 6-20 (mg/dL) Final Creatinine 07/26/2024 11:53:43 0.5 0.5-1.0 (mg/dL) Final Glomerular filtration rate/1.73 sq M.predicted [Volume Rate/Area] in Serum, Plasma or Blood by Creatinine-based formula (CKD-EPI) 07/26/2024 11:53:43 >90 >=60 (mL/min) Final eGFR is calculated based on the CKD-EPI 2020 equation. Sodium 07/26/2024 11:53:43 139 135-146 (m mol/L) Final Potassium 07/26/2024 11:53:43 3.6 3.5-5.1 (m mol/L) Final Cl 07/26/2024 11:53:43 100 98-107 (mm ol/L) Final CO2 07/26/2024 11:53:43 22 22-32 (mmo l/L) Final Anion gap 07/26/2024 11:53:43 17 Above high normal 7- 15 (mmol/L) Final Glucose 07/26/2024 11:53:43 83 70-120 (mg /dL) Final Albumin 07/26/2024 11:53:43 3.9 3.8-5.0 (g /dL) Final AST (Aspartate aminotransferase) 07/26/2024 11:53:43 109 Above high normal 10-35 (U/L) Final Alk Phos 07/26/2024 11:53:43 140 Above high normal 35 -130 (U/L) Final Bilirubin, Total 07/26/2024 11:53:43 0.7 <=1 .2 (mg/dL) Final Calcium 07/26/2024 11:53:43 9.4 8.4-10.2 ( mg/dL) Final Protein 07/26/2024 11:53:43 5.9 Below low normal 6.0 -8.3 (g/dL) Final ALT (Alanine aminotransferase) 07/26/2024 11:53:43 81 Above high normal 10-35 (U/L) Final Performing Location LAB[facility]ATORY [place] [address] [facility] [address]
--- OUTSIDE RECORDS SUMMARY | 2024-07-29 11:12 | External Medical Summary ---
Author Name Unknown Address Unknown Organization [id number]:[facility] [place] [address] [place] [address] Laboratory Report Ordering Provider Test Date Status EMILIANO YAP 07/26/2024 11:53:43 Final Observation Date Value Abnormality Reference (Units ) Status Lipase 07/26/2024 11:53:43 433 Above high normal 13 -60 (U/L) Final Performing Location LABORATORY [facility] - [address] [place] [address]
--- OUTSIDE RECORDS SUMMARY | 2024-07-29 11:12 | External Medical Summary | Summary of Care ---
Author Name Unknown Organization [facility] Address [address] [place] [address] Phone [phone] Care Team Providers Care Geoscience Laboratory Technician Name Role Phone Ariella Starks DO Primary Care Provider [phone] Reason for Visit * Reason Comments Outpatient Testing Encounter Details Date Type Department Care Team (Late st Contact Info) Description 07/26/2024 12:10 PM EDT Laboratory Laboratory, [facility] [address] [place] [id number] [facility] [address] [place] [address] Abdominal pain, epigastric Allergies Active Allergy Reactions Criticality Noted Date [...] tablets in 24 hours 27 Tablet 3 4 Active amLODIPine Besylate 2.5 MG Oral Tablet (Norvasc)Indicati ons:HTN, goal below 130/80 Take 1 Tablet by mouth in the morning. 90 Tablet 3 5 Active Hydrocortisone (Perianal) 2.5 % External CreamIndications: Hemorrhoids, external without complications Administer into the rectum 2 times a day. For 2 weeks. 28 g 1 5 Active Escitalopram Oxalate 10 MG Oral Tablet (Lexapro)Indicati ons:Depression, major, in remission (HCC) TAKE 1 TABLET BY MOUTH ONCE DAILY IN THE MORNING 30 Tablet 5 5 Active Albuterol Sulfate HFA 108 (90 Base) MCG/ACT Inhalation Aerosol SolutionIndicatio ns:Pneumonia of right lung due to infectious organism, unspecified part of lung Inhale 2 Puffs by mouth every 4 hours as needed for Dyspnea or Wheezing. 18 g 5 Active Omeprazole 40 MG Oral Capsule Delayed Release (PriLOSEC)Indicat ions:Acute gastritis without hemorrhage, unspecified gastritis type TAKE 1 CAPSULE BY MOUTH ONCE DAILY IN THE MORNING 1 HOUR BEFORE FIRST MEAL OF THE DAY. 30 Capsule 1 5 Active Lisinopril 40 MG Oral TabletIndications :HTN, goal below 130/80 TAKE 1 TABLET BY MOUTH IN THE MORNING 90 Tablet 5 Active Sulfamethoxazole- Trimethoprim 800-160 MG Oral Tablet (Bactrim DS)Indications:Ur inary tract infection with hematuria, site unspecified Take 1 Tablet by mouth in the morning and 1 Tablet before bedtime. Do all this for 7 days. Until gone. 14 Tablet 5 08/01/19 25 Active Famotidine 40 MG Oral Tablet (Pepcid) Take 1 Tablet by mouth 2 times a day as needed for Heartburn. 60 Tablet 2 5 Active Sucralfate 1 GM Oral Tablet (Carafate) Take 1 Tablet by mouth 4 times a day before meals and at bedtime. 120 Tablet 2 5 Active documented as of this encounter (statuses as [...] mRNA, LNP-s, No Pre serve, 2-Dose Series ([employer] [place]) 06/26/2020,06/05/2020 COVID-19, LNP-s, No Preserve , Filiberto-sucrose, Ages 12+ (Pfizer) 09/14/2021 COVID-19, MRNA-LNP, 24-25, P R, 30MCG/0.3ML, IM, 12YRS AND ABOVE ([employer] [facility]) 12/06/2023 Covid-19, Mrna, Lnp-s, Pf, B ivalent, [...] on file documented as of this encounter Plan of Treatment Upcoming Encounters Date Type Department Care Team (Late st Contact Info) Description 09/26/2024 9:15 AM EDT Imaging Radiology [address] [place] [phone] 10/01/2024 1:40 PM EDT Office Visit Family Practice [facility] [address] [place] [address] Ariella Starks, [address] [place] [place] [phone] Pending Results Name Type Priority Associated Diagnoses Date /Time CBC WITH WBC DIFFERENTIAL AND ANEMIA REFLEX WORKUP Lab Routine Abdominal pain, epigastric 07/26/2024 11:53 AM EDT LIPASE Lab Routine Abdominal pain, epigastric 07/26/2024 11:53 AM EDT ANEMIA REFLEX CHEMISTRY HOLD Lab Routine Abdominal pain, epigastric 07/26/2024 11:53 AM EDT Scheduled Procedures Name Priority Associated Diagnoses Date/Ti me COLONOSCOPY FLEXIBLE PROXIMA L DIAGNOSTIC Recall Special screening for malignant neoplasms, colon Health Maintenance Due Date Last Done Comments Cologuard 2006 Fecal Occult Blood Test 2006 Sigmoidoscopy 2006 Depression Monitoring 09/25/2024 09/26/2023 Mammogram 09/25/2024 09/26/2023, 09/10, 09/14/2021, Additional history exists DXA Scan 11/03/2026 11/03/2021, 09/10, 08/11/2010 Lipid Panel 10/13/2027 10/12/2022, 07/2021, 11/06/2020, Additional history exists DTap/Tdap Vaccines [...] Not on filedocumented as of this encounter Procedures Procedure Name Priority Date/Time Associated Diagnosis Comments ANEMIA CBC Routine 07/26/2024 11:53 AM EDT Abdominal pain, epigastric DIFFERENTIAL, AUTOMATED Routine 07/26/2024 11:53 AM EDT Abdominal pain, epigastric COMPREHENSIVE METABOLIC PANEL Routine 07/26/2024 11:53 AM EDT Abdominal pain, epigastric documented in this encounter Results * (ABNORMAL) DIFFERENTIAL, AUTOMATED (07/26/2024 11:53 AM EDT) WBC 6.49 4.00 - 10.80 K/uL 07/26/2024 12:32 PM EDT [facility] Neutrophils % 91.7(H) 40.0 - 75.0 % 07/26/2024 12:32 PM EDT [facility] Lymphocytes % 3.2(L) 18.0 - 42.0 % 07/26/2024 12:32 PM EDT [facility] Monocytes % 4.6 1.0 - 11.0 % 07/26/2024 12:32 PM EDT [facility] Eosinophils % 0.3 0.0 - 6.0 % 07/26/2024 12:32 PM EDT [facility] Basophils % 0.2 0.0 - 2.0 % 07/26/2024 12:32 PM EDT [facility] Absolute Neutrophils 5.95 1.80 - 7.70 K/uL 07/26/2024 12:32 PM EDT [facility] Absolute Lymphocytes 0.21(L) 1.00 - 4.80 K/ul 07/26/2024 12:32 PM EDT [facility] Absolute Monocytes 0.30 0.00 - 1.10 K/uL 07/26/2024 12:32 PM EDT [facility] Absolute Eosinophils 0.02 0.00 - 0.70 K/uL 07/26/2024 12:32 PM EDT [facility] Absolute Basophils 0.01 0.00 - 0.20 K/uL 07/26/2024 12:32 PM EDT [facility] Blood Venous blood specimen / Unknown Venipuncture / Unknown 07/26/2024 11:53 AM EDT 07/26/2024 11:53 AM EDT us Kirk Barker MD LAB BLOOD ORDERABLES Fin al Result [facility] [place] [id number] * ANEMIA CBC (07/26/2024 11:53 AM EDT) WBC 6.49 4.00 - 10.80 K/uL 07/26/2024 12:32 PM EDT [facility] RBC 4.09 3.85 - 5.15 M/uL 07/26/2024 12:32 PM EDT [facility] HGB 14.5 12.0 - 15.3 g/dL 07/26/2024 12:32 PM EDT [facility] [place] [facility] Comment: Anemia reflex testing triggers on a HGB < 12.0 for Females and HGB < 13.0 for Males in accordance with the WHO Anemia Guidelines Anemia reflex testing triggers on a HGB < 12.0 for Females and HGB < 13.0 for Males in accordance with the WHO Anemia Guidelines HCT 42.5 36.0 - 45.2 % 07/26/2024 12:32 PM EDT [facility] [place] [facility] MCV 103.9 81.5 - 97.5 fL 07/26/2024 12:32 PM EDT [facility] MCH 35.5 27.0 - 34.0 pg 07/26/2024 12:32 PM EDT [facility] MCHC 34.1 32.0 - 36.0 g/dL 07/26/2024 12:32 PM EDT [facility] [place] [facility] RDW 11.7 11.5 - 15.5 % 07/26/2024 12:32 PM EDT [facility] PLT 142 140 - 400 K/uL 07/26/2024 12:32 PM EDT [facility] MPV 10.5 6.6 - 11.1 fL 07/26/2024 12:32 PM EDT [facility] [place] [facility] Blood Venous blood specimen / Unknown Venipuncture / Unknown 07/26/2024 11:53 AM EDT 07/26/2024 11:53 AM EDT us Kirk Barker MD LAB BLOOD ORDERABLES Fin al Result [facility] [place] [facility] [facility] [address] [place] [address] * (ABNORMAL) COMPREHENSIVE METABOLIC PANEL (07/26/2024 11:53 AM EDT) BUN 11 6 - 20 mg/dL 07/26/2024 1:47 PM EDT [facility] CREATININE 0.5 0.5 - 1.0 mg/dL 07/26/2024 1:47 PM EDT [facility] [place] [facility] EGFR >90 >=60 mL/min 07/26/2024 1:47 PM EDT [facility] Comment:eGFR is calculated b ased on the CKD-EPI 2020 equation. SODIUM 139 135 - 146 mmol/L 07/26/2024 1:47 PM EDT [facility]10 POTASSIUM 3.6 3.5 - 5.1 mmol/L 07/26/2024 1:47 PM EDT [facility]10 CHLORIDE 100 98 - 107 mmol/L 07/26/2024 1:47 PM EDT [facility]10 CO2 22 22 - 32 mmol/L 07/26/2024 1:47 PM EDT [facility] [place] [facility] ANION GAP 17(H) 7 - 15 mmol/L 07/26/2024 1:47 PM EDT [facility] GLUCOSE 83 70 - 120 mg/dL 07/26/2024 1:47 PM EDT [facility] Albumin 3.9 3.8 - 5.0 g/dL 07/26/2024 1:47 PM EDT [facility] AST 109(H) 10 - 35 U/L 07/26/2024 1:47 PM EDT [facility] Alkaline Phosphatase 140(H) 35 - 130 U/L 07/26/2024 1:47 PM EDT [facility] Bilirubin, Total 0.7 <=1.2 mg/dL 07/26/2024 1:47 PM EDT [facility] CALCIUM 9.4 8.4 - 10.2 mg/dL 07/26/2024 1:47 PM EDT [facility] Protein 5.9(L) 6.0 - 8.3 g/dL 07/26/2024 1:47 PM EDT [facility] ALT 81(H) 10 - 35 U/L 07/26/2024 1:47 PM EDT [facility] Blood Venous blood specimen / Unknown Venipuncture / Unknown 07/26/2024 11:53 AM EDT 07/26/2024 11:53 AM EDT us Kirk Barker MD LAB BLOOD ORDERABLES Fin al Result [facility] [address] [facility] [place] [address] documented in this encounter Visit Diagnoses Diagnosis Abdominal pain, epigastric documented in this encounter Care Teams Geoscience Laboratory Technician Relationship Specialty Start Date End Date Ariella Starks DO [address] [place] [address] PCP - General Family Medicine 08/03/18 documented as of this encounter
--- OUTSIDE RECORDS SUMMARY | 2024-07-29 11:13 | External Medical Summary ---
Author Name Unknown Address Unknown Organization [id number][place] [place] [address] [place] [address] Laboratory Report Ordering Provider Test Date Status BREEZY REDDING 05/01/2024 10:37:25 Final Exclude Heart Failure: <300 pg/mL
Diagnose Heart Failure:
Age <50 yr: >450 pg/mL
50-75 yr: >900 pg/mL
>75 yr: >1800 pg/mL
GFR is 30-59 mL/min: >1200 pg/mL or Age- adjusted values
GFR <30 mL/min: do not use, not reliable

Prognostic threshold: 1000 pg/mL Observation Date Value Abnormality Reference (Units ) Status BNP, Pro-hormone 05/01/2024 10:37:25 <50 <30 0 (pg/mL) Final Performing Location [facility] [place] [address] [place] [address]
--- OUTSIDE RECORDS SUMMARY | 2024-07-29 11:13 | External Medical Summary ---
Author Name Unknown Address Unknown Organization [id number]:[facility]ORY [facility] [place] - [address] [place] [address] Laboratory Report Ordering Provider Test Date Status VALE TO 05/01/2024 10:37:25 Final Observation Date Value Abnormality Reference (Units ) Status MYCODE SPECIMEN-SST 05/01/2024 10:37:25 Freezing of extracted DNA, whole blood and/or serum. Final Performing Location [facility] - [address] [place] [address]
--- OUTSIDE RECORDS SUMMARY | 2024-07-29 11:13 | External Medical Summary | Summary of Care ---
Author Name Unknown Organization [facility] Address [address] [place] [address] Phone [phone] Care Team Providers Care Block Saw Operator Name Role Phone JeramyrAiella xavier Primary Care Provider [phone] Encounter Details Date Type Department Care Team (Late st Contact Info) Description 02/05/2024 Orders Only Outcomes Research Department [address] [place] [address] Abigail Holly CHRA [employer] Other*[id number] Allergies Active Allergy Reactions Criticality Noted Date Comments Influenza Virus Vacc Hives 12/06/2010 documented as of this encounter (statuses as of 02/05/2024) Medications Doxylamine Succinate (Sleep) 25 MG Oral Tablet (Unisom) Take 1 Tablet by mouth at bedtime as needed. Active Nicotine Polacrilex 4 MG Mouth/Throat Gum Take 1 Each by mouth daily first thing in the morning. Active Multi-Day Oral Tablet Take 1 Tablet by mouth in the morning. Active SUMAtriptan Succinate 100 MG Oral Tablet (Imitrex)Indicat ions:Migraine with aura and without status migrainosus, not intractable One pill by mouth at onset of migraine. May repeat in 2 hours but not more than 2 tablets in 24 hours 27 Tablet 3 04/03/2023 Active Escitalopram Oxalate 10 MG Oral Tablet (Lexapro)Indicat ions:Depression, major, in remission (HCC) Take 1 Tablet by mouth in the morning. 90 Tablet 3 04/03/2023 Active Omeprazole 40 MG Oral Capsule Delayed Release (PriLOSEC)Indica tions:Acute gastritis without hemorrhage, unspecified gastritis type Take 1 Capsule by mouth in the morning. 1 hour before the first meal of the day. 90 Capsule 3 06/13/2023 Active traZODone HCl 50 MG Oral Tablet (Desyrel)Indicat ions:Primary insomnia Take 1 Tablet by mouth at bedtime. 30 Tablet 5 09/26/2023 Active Naproxen 500 MG Oral Tablet (Naprosyn)Indica tions:Chronic midline low back pain without sciatica One pill by mouth twice a day with food. 180 Tablet 1 11/02/2023 Active Lisinopril 40 MG Oral TabletIndication s:HTN, goal below 130/80 Take 1 Tablet by mouth in the morning. 90 Tablet 1 01/25/2024 Active Hospital, Clinic, or Other Facility Administered Medication Ordered Dose Route Frequency Start Date End Date Status Denosumab (Prolia) subcut inj 60 mgIndications:Senile osteoporosis 60 mg SC [id number] 05/03/2023 04/27/2024 Active documented as of this encounter (statuses as of 02/05/2024) Active Problems Problem Noted Date Diagnosed Date PVC (premature ventricular contraction) 04/04/19 20 Allergy to influenza vaccine 03/16/2017 Other seborrheic keratosis 04/22/2013 Neoplasm of uncertain behavior of skin 4 Backache 03/02/2009 Depression, major, in remission Overview (03/02/2009): failed celexa Migraine with aura Overview (03/02/2009): 10+ per year Esophageal reflux documented as of this encounter (statuses as of 02/05/2024) Resolved Problems Problem Noted Date Diagnosed Date [...] as of this encounter (statuses as of 02/05/2024) Immunizations Name Administration Dates Next Due COVID-19 mRNA, LNP-s, No Pre serve, 2-Dose Series ([employer]) 06/26/2020,06/05/2020 COVID-19, LNP-s, No Preserve , Filiberto-sucrose, Ages 12+ ([employer]) 09/14/2021 COVID-19, MRNA-LNP, 24-25, P R, 30MCG/0.3ML, IM, 12YRS AND ABOVE (Pfizer[employer]) 12/06/2023 Covid-19, Mrna, Lnp-s, Pf, B ivalent, 30 Mcg, IM, 12 yrs and above (Pfizer) 09/28/2022 TDAP (age 10 and older)(Boostrix) 09/04/2020 TDAP, [...] the money to buy more. Never true 09/12/19 24 Within the past 12 months, t he food you bought just didn't last and you didn't have money to get more. Never true 09/12/2023 Childcare Answer Date Recorded Do you feel overwhelmed with taking care of a child, family member or friend? No 09/12/2023 Does your family need help f inding childcare? (Household - for ages 0-17 years) Not on file 09/12/2023 Clothing Answer Date Recorded Have you been unable to get clothing when it was really needed? No 09/12/2023 Is your family able to get c lothes or diapers when needed? (Household - for ages 0-17 years) Not on file 09/12/2023 Personal Safety Answer Date Recorded Do you feel unsafe or have concerns for your saf ety? No 09/12/2023 Do you have concerns for you r family's safety? (Household - for ages 0-17 years) Not on file 09/12/2023 Utilities Answer Date Recorded Do you have trouble paying y our heating, water, or electric bill? No 09/12/2023 Is your family able to pay t he heat, water, or electric bill? (Household - for ages 0-17 years) Not on file 09/12/2023 Does your family have access to good internet? (Household - for ages 0-17 years) Not on file 09/12/2023 Employment Status Answer Date Recorded Are you unemployed or without regular income? No 09/12/2023 Does the household have a [facility] source [facility] income? (Household - for ages 0-17 years) Not on file 09/12/2023 Social Connections Answer Date Recorded How often do you feel lonely or isolated from th ose around you? Rarely 09/12/2023 Financial Resource Strain Answer Date R ecorded Do you have any trouble payi ng for your medications, or do you think you might in the future? No 09/12/2023 Does your family have troubl e paying for medicine? (Household - for ages 0-17 years) Not on file 09/12/2023 Transportation Needs Answer Date Record ed Do you have trouble getting a ride to medical visits or work? (Adult - for ages 18 years and over) Not on file 09/12/2023 Does your family have a hard time getting a ride to doctors visits? (Household - for ages 0-17 years) Not on file 09/12/2023 Has lack of transportation k ept you from medical appointments, meetings, work, or from getting things needed for daily living? Check all that apply. No 09/12/2023 Do you (or your family) have trouble finding or paying for a ride (transportation)? (Household - for ages 0-17 years) Not on file 09/12/2023 Housing Stability Answer Date Recorded Do you currently live in a s helter or have no steady place to sleep at night? Yes 09/12/2023 Do you think you are at risk of becoming homeless? (Adult - for ages 18 years and over) Not on file 09/12/2023 Does your family worry about paying for your home or becoming homeless? (Household - for ages 0-17 years) Not on file 0 09/12/2023 Are you homeless or worried that you might be in the future? No 09/12/2023 Are you (or your family) ricardo eless or worried that you might be in the future? (Household - for ages 0-17 years) Not on file Food Insecurity Answer Date Recorded Do you need food for this week? No 09/12/2023 Are you able to get enough f ood for your family? (Household - for ages 0-17 years) Not on file 09/12/2023 Does your family need food t his week? (Household - for ages 0-17 years) Not on file 09/12/2023 Do you always have enough fo od for your family? (Household - for ages 0-17 years) Not on file 09/12/2023 Comments No Sex and Gender Information Value [...] Description 09/26/2024 9:15 AM EDT Imaging Radiology [facility], [address] [place] [address] Scheduled Orders Name Type Priority Associated Diagnoses Orde r Schedule MYCODE SUBSEQUENT ADULT Lab Routine [employer] Research Other*[id number] Every 6 Months for 2 Occurrences starting 02/05/2024 until 02/24/2025 Scheduled Procedures Name Priority Associated Diagnoses Date/Ti me COLONOSCOPY FLEXIBLE PROXIMA L DIAGNOSTIC Recall Special screening for malignant neoplasms, colon Health Maintenance Due Date Last Done Comments HIV Screening 02/18/1976 Cologuard 2006 Fecal Occult Blood Test 2006 Sigmoidoscopy 2006 Influenza Vaccine (FLU shot) (#1) 2023 COVID-19 Vaccine ( season) 2024 12/06/2023, 09/28/2022, 09/14/2021, Additional history exists Depression Monitoring 09/25/2024 09/26/2023 Mammogram 09/25/2024 09/26/2023, 09/10, 09/14/2021, Additional history exists DXA Scan 11/03/2026 11/03/2021, 09/10, 08/11/2010 Lipid Panel 10/13/2027 10/12/2022, 07/07/2021, 11/06/2020, Additional history exists DTap/Tdap Vaccines (3 - Td or Tdap) 09/04/2030 09/04/2020, 06/23/2010 Colonoscopy 06/27/2032 06/27/2022, 06/11, 02/21/2011 Colorectal Cancer Screening 06/27/2032 Zoster Vaccines Completed 10/30/2018, 08/03/2018 HPV (Gardasil) Vaccine Aged Out No lo nger eligible based on patient's age to complete this topic Hepatitis B Vaccine Aged Out No longe r eligible based on patient's age to complete this topic MENINGOCOCCAL (MENACTRA/MENVEO) Aged Out No longer eligible based on patient's age to complete this topic Pneumococcal Vaccine: Pediatrics (0 to 5 Years) and At-Risk Patients (6 to 64 Years) Aged Out No longer eligible based on patient's age to complete this topic documented as of this encounter Medical Devices Not on filedocumented as of this encounter Visit Diagnoses Diagnosis [employer] Other*[id number] documented in this encounter Care Teams Block Saw Operator Relationship Specialty Start Date End Date Ariella Starks DO [address] [place] [address] PCP - General Family Medicine 08/03/18 documented as of this encounter
--- OUTSIDE RECORDS SUMMARY | 2024-07-29 11:13 | External Medical Summary ---
Author Name Unknown Address Unknown Organization K0G:[facility]ORY [facility] - [address] [place] [address] Laboratory Report Ordering Provider Test Date Status BREEZY REDDING 05/01/2024 10:37:25 Final Observation Date Value Abnormality Reference (Units ) Status SYNC LEUKOCYTES IN BLOOD BY AUTOMATED COUNT 05/01/2024 10:37:25 3.91 Below low normal 4.00-10.80 (K/uL) Final Segs 05/01/2024 10:37:25 69.2 40.0-75.0 (%) Final Lymphs % 05/01/2024 10:37:25 15.9 Below low normal 18.0-42.0 (%) Final Monos 05/01/2024 10:37:25 13.6 Above high normal 1.0-11.0 (%) Final Eosinophils 05/01/2024 10:37:25 1.0 0.0-6.0 (%) Final Basos 05/01/2024 10:37:25 0.3 0.0-2.0 (%) Final Absolute Segs 05/01/2024 10:37:25 2.71 1.80-7.70 (K/uL) Final Lymphs, absolute 05/01/2024 10:37:25 0.62 Below low normal 1.00-4.80 (K/ul) Final Monos, Abs 05/01/2024 10:37:25 0.53 0.00-1.10 (K/uL) Final Eos, Abs 05/01/2024 10:37:25 0.04 0.00-0.70 (K/uL) Final Basos, Abs 05/01/2024 10:37:25 0.01 0.00-0.20 (K/uL) Final Performing Location [facility] 0 - [address] [place] [address]
--- OUTSIDE RECORDS SUMMARY | 2024-07-29 11:13 | External Medical Summary ---
Author Name Unknown Address Unknown Organization K0G[facility] [address] [place] [address] Laboratory Report Ordering Provider Test Date Status BREEZY REDDING 05/01/2024 10:37:25 Final Observation Date Value Abnormality Reference (Units ) Status Nucleated erythrocytes/100 leukocytes [Ratio] in Blood by Automated count 05/01/2024 10:37:25 Final Performing [facility] - [address] [place] [address]
--- OUTSIDE RECORDS SUMMARY | 2024-07-29 11:13 | External Medical Summary | Summary of Care ---
Author Name Unknown Organization [facility] Address [address] [place] [address] Phone [phone] Care Team Providers Care Managed Care Director Name Role Phone Ariella Starks DO Primary Care Provider [phone] Reason for Visit * Reason Comments Outpatient Testing Encounter Details Date Type Department Care Team (Late st Contact Info) Description 05/01/2024 10:40 AM EST Laboratory Laboratory, [facility] [address] [place] [address] [facility] [address] [place] [address] [employer] Other*[id number]; Pneumonia of right lung due to infectious organism, unspecified part of lung Allergies Active Allergy Reactions Criticality Noted Date Comments Influenza Virus Vacc Hives 12/06/2010 documented as of this encounter (statuses as of 05/01/2024) Medications Doxylamine Succinate (Sleep) 25 MG Oral [...] meal of the day. 90 Capsule 3 4 Active Naproxen 500 MG Oral Tablet (Naprosyn)Indicat ions:Chronic midline low back pain without sciatica One pill by mouth twice a day with food. 180 Tablet 1 4 Active Lisinopril 40 MG Oral TabletIndications :HTN, goal below 130/80 Take 1 Tablet by mouth in the morning. 90 Tablet 1 4 Active SUMAtriptan Succinate 100 MG Oral Tablet [...] THE MORNING 30 Tablet 5 5 Active Amoxicillin-Pot Clavulanate 875-125 MG Oral Tablet (Augmentin)Indica tions:Pneumonia of right lung due to infectious organism, unspecified part of lung Take 1 Tablet by mouth in the morning and 1 Tablet before bedtime. Do all this for 10 days. 20 Tablet 5 05/12/19 25 Active Benzonatate 100 MG Oral CapsuleIndication s:Pneumonia of right lung due to infectious organism, unspecified part of lung Take 1 Capsule by mouth 3 times a day as needed for Cough. 30 Capsule 1 5 Active Albuterol Sulfate HFA 108 (90 Base) MCG/ACT Inhalation Aerosol SolutionIndicatio ns:Pneumonia of right lung due to infectious organism, unspecified part of lung Inhale 2 Puffs by mouth every 4 hours as needed for Dyspnea or Wheezing. 18 g 5 Active documented as of this encounter (statuses as of 05/01/2024) Active Problems Problem Noted Date Diagnosed Date PVC (premature ventricular contraction) 04/04/19 20 Allergy to influenza vaccine 03/16/2017 Other seborrheic keratosis 04/22/2013 Neoplasm of uncertain behavior of skin 4 Backache 03/02/2009 Depression, major, in remission Overview (03/02/2009): failed celexa Migraine with aura Overview (03/02/2009): 10+ per year Esophageal reflux documented as of this encounter (statuses as of 05/01/2024) Resolved Problems Problem Noted Date Diagnosed Date [...] as of this encounter (statuses as of 05/01/2024) Immunizations Name Administration Dates Next Due COVID-19 mRNA, LNP-s, No Pre serve, 2-Dose Series ([employer]) 06/26/2020,06/05/2020 COVID-19, LNP-s, No Preserve , Filiberto-sucrose, Ages 12+ ([employer]) 09/14/2021 COVID-19, MRNA-LNP, 24-25, P R, 30MCG/0.3ML, [...] 03/18/2024 Does the household have a re lar source of income? (Household - for ages [...] Description 09/26/2024 9:15 AM EDT Imaging Radiology [facility] [address] [place] [address] Pending Results Name Type Priority Associated Diagnoses Date /Time MYCODE SUBSEQUENT ADULT Lab Routine [employer] Other*[id number] 05/01/2024 10:37 AM EST BNP, NT-PRO Lab Routine Pneumonia of right lung due to infectious organism, unspecified part of lung 05/01/2024 10:37 AM EST MYCODE SST1 Lab Routine [employer] Other*[id number] 05/01/2024 10:37 AM EST MYCODE SST2 Lab Routine [employer] Other*[id number] 05/01/2024 10:37 AM EST Scheduled Procedures Name Priority Associated Diagnoses Date/Ti [...] Procedure Name Priority Date/Time Associated Diagnosis Comments DIFFERENTIAL, AUTOMATED Routine 05/01/2024 10:37 AM EST Pneumonia of right lung due to infectious organism, unspecified part of lung COMPREHENSIVE METABOLIC PANEL Routine 05/01/2024 10:37 AM EST Pneumonia of right lung due to infectious organism, unspecified part of lung CBC Routine 05/01/2024 10:37 AM EST Pneumonia of right lung due to infectious organism, unspecified part of lung CBC Routine 05/01/2024 10:37 AM EST Pneumonia of right lung due to infectious organism, unspecified part of lung DIFFERENTIAL, TECHNOLOGIST REVIEW Routine 05/01/2024 10:37 AM EST Pneumonia of right lung due to infectious organism, unspecified part of lung documented in this encounter Results * DIFFERENTIAL, TECHNOLOGIST REVIEW (05/01/2024 10:37 AM EST) nRs 05/01/2024 11:49 AM EST [facility] [place] [facility] Blood Venous blood specimen / Unknown Venipuncture / Unknown 05/01/2024 10:37 AM EST 05/01/2024 10:37 AM EST Yovani Hendricks PA-C LAB BLOOD ORDERABLES Final Result [facility] [place] [facility]10 [address] [facility] [place] [address] * (ABNORMAL) DIFFERENTIAL, AUTOMATED (05/01/2024 10:37 AM EST) WBC 3.91(L) 4.00 - 10.80 K/uL 05/01/2024 11:49 AM EST [facility] [place] [facility]10 Neutrophils % 69.2 40.0 - 75.0 % 05/01/2024 11:49 AM EST [facility] [place] [facility]10 Lymphocytes % 15.9(L) 18.0 - 42.0 % 05/01/2024 11:49 AM EST [facility] [place] [facility]10 Monocytes % 13.6(H) 1.0 - 11.0 % 05/01/2024 11:49 AM EST [facility] [place] [facility] Eosinophils % 1.0 0.0 - 6.0 % 05/01/2024 11:49 AM EST [facility] [place] [facility]10 Basophils % 0.3 0.0 - 2.0 % 05/01/2024 11:49 AM EST [facility] [place] [facility]10 Absolute Neutrophils 2.71 1.80 - 7.70 K/uL 05/01/2024 11:49 AM EST [facility] [place] [facility] Absolute Lymphocytes 0.62(L) 1.00 - 4.80 K/ul 05/01/2024 11:49 AM EST [facility] 57[facility]10 Absolute Monocytes 0.53 0.00 - 1.10 K/uL 05/01/2024 11:49 AM EST [facility] [place] [facility]10 Absolute Eosinophils 0.04 0.00 - 0.70 K/uL 05/01/2024 11:49 AM EST [facility] [place] [facility]10 Absolute Basophils 0.01 0.00 - 0.20 K/uL 05/01/2024 11:49 AM EST [facility] [place] [facility]10 Blood Venous blood specimen / Unknown Venipuncture / Unknown 05/01/2024 10:37 AM EST 05/01/2024 10:37 AM EST us Yovani Hendricks PA-C LAB BLOOD ORDERABLES Final Result [facility] [place] [facility] [address] [facility] [place] [address] * (ABNORMAL) CBC (05/01/2024 10:37 AM EST) WBC 3.91(L) 4.00 - 10.80 K/uL 05/01/2024 11:49 AM EST [facility] [place] [facility]10 RBC 4.21 3.85 - 5.15 M/uL 05/01/2024 11:49 AM EST [facility] [place] [facility]10 HGB 14.6 12.0 - 15.3 g/dL 05/01/2024 11:49 AM EST [facility] [place] [facility]10 HCT 42.7 36.0 - 45.2 % 05/01/2024 11:49 AM EST [facility] [place] [facility]10 MCV 101.4 81.5 - 97.5 fL 05/01/2024 11:49 AM EST [facility] 57-10 MCH 34.7 27.0 - 34.0 pg 05/01/2024 11:49 AM EST [facility] [place] [facility]10 MCHC 34.2 32.0 - 36.0 g/dL 05/01/2024 11:49 AM EST [facility] [place] [facility]10 RDW 11.7 11.5 - 15.5 % 05/01/2024 11:49 AM EST [facility] [place] [facility]10 PLT 201 140 - 400 K/uL 05/01/2024 11:49 AM EST [facility] [place] [facility]10 MPV 10.1 6.6 - 11.1 fL 05/01/2024 11:49 AM EST [facility] [place] [facility]10 Blood Venous blood specimen / Unknown Venipuncture / Unknown 05/01/2024 10:37 AM EST 05/01/2024 10:37 AM EST Yovani Hendricks PA-C LAB BLOOD ORDERABLES Final Result [facility] [place] [facility] [address] [place] [address] * (ABNORMAL) COMPREHENSIVE METABOLIC PANEL (05/01/2024 10:37 AM EST) BUN 10 6 - 20 mg/dL 05/01/2024 11:57 AM EST [facility] [place] [facility]10 CREATININE 0.5 0.5 - 1.0 mg/dL 05/01/2024 11:57 AM EST [facility] [place] [facility]10 EGFR >90 >=60 mL/min 05/01/2024 11:57 AM EST [facility] [place] [facility]10 Comment:eGFR is calculated b ased on the CKD-EPI 2020 equation. SODIUM 140 135 - 146 mmol/L 05/01/2024 11:57 AM EST [facility] [place] [facility]10 POTASSIUM 4.0 3.5 - 5.1 mmol/L 05/01/2024 11:57 AM EST [facility] [place] [facility]10 CHLORIDE 101 98 - 107 mmol/L 05/01/2024 11:57 AM EST [facility] [place] [facility]10 CO2 29 22 - 32 mmol/L 05/01/2024 11:57 AM EST [facility] [place] [facility]10 ANION GAP 10 7 - 15 mmol/L 05/01/2024 11:57 AM EST [facility] [place] [facility]10 GLUCOSE 79 70 - 120 mg/dL 05/01/2024 11:57 AM EST [facility] [place] [facility]10 Albumin 3.7(L) 3.8 - 5.0 g/dL 05/01/2024 11:57 AM EST [facility] [place] [facility]10 AST 60(H) 10 - 35 U/L 05/01/2024 11:57 AM EST [facility] [place] [facility]10 Alkaline Phosphatase 138(H) 35 - 130 U/L 05/01/2024 11:57 AM EST [facility] [place] [facility]10 Bilirubin, Total 0.6 <=1.2 mg/dL 05/01/2024 11:57 AM EST [facility] [place] [facility]10 CALCIUM 8.9 8.4 - 10.2 mg/dL 05/01/2024 11:57 AM EST [facility] [place] [facility]10 Protein 5.7(L) 6.0 - 8.3 g/dL 05/01/2024 11:57 AM EST [facility] [place] [facility] ALT 41(H) 10 - 35 U/L 05/01/2024 11:57 AM EST [facility] [place] [facility]10 Blood Venous blood specimen / Unknown Venipuncture / Unknown 05/01/2024 10:37 AM EST 05/01/2024 10:37 AM EST Yovani Hendricks PA-C LAB BLOOD ORDERABLES Final Result [facility] [place] [facility] [address] [place] [address] documented in this encounter Visit Diagnoses Diagnosis [employer] Other*[id number] Pneumonia of right lung due to infectious organism, unspecified part of lung documented in this encounter Care Teams Managed Care Director Relationship Specialty Start Date End Date Ariella Starks DO [address] [place] [address] PCP - General Family Medicine 08/03/18 documented as of this encounter
--- OUTSIDE RECORDS SUMMARY | 2024-07-29 11:13 | External Medical Summary ---
Author Name Unknown Address Unknown Organization [facility] [place] [address] Laboratory Report Ordering Provider Test Date Status BREEZY REDDING 05/01/2024 10:37:25 Final Observation Date Value Abnormality Reference (Units ) Status BUN 05/01/2024 10:37:25 10 6-20 (mg/dL) Final Creatinine 05/01/2024 10:37:25 0.5 0.5-1.0 (mg/dL) Final Glomerular filtration rate/1.73 sq M.predicted [Volume Rate/Area] in Serum, Plasma or Blood by Creatinine-based formula (CKD-EPI) 05/01/2024 10:37:25 >90 >=60 (mL/min) Final eGFR is calculated based on the CKD-EPI 2020 equation. Sodium 05/01/2024 10:37:25 140 135-146 (m mol/L) Final Potassium 05/01/2024 10:37:25 4.0 3.5-5.1 (m mol/L) Final Cl 05/01/2024 10:37:25 101 98-107 (mm ol/L) Final CO2 05/01/2024 10:37:25 29 22-32 (mmo l/L) Final Anion gap 05/01/2024 10:37:25 10 7-15 (mmol /L) Final Glucose 05/01/2024 10:37:25 79 70-120 (mg /dL) Final Albumin 05/01/2024 10:37:25 3.7 Below low normal 3.8 -5.0 (g/dL) Final AST (Aspartate aminotransferase) 05/01/2024 10:37:25 60 Above high normal 10-35 (U/L) Final Alk Phos 05/01/2024 10:37:25 138 Above high normal 35 -130 (U/L) Final Bilirubin, Total 05/01/2024 10:37:25 0.6 <=1 .2 (mg/dL) Final Calcium 05/01/2024 10:37:25 8.9 8.4-10.2 ( mg/dL) Final Protein 05/01/2024 10:37:25 5.7 Below low normal 6.0 -8.3 (g/dL) Final ALT (Alanine aminotransferase) 05/01/2024 10:37:25 41 Above high normal 10-35 (U/L) Final Performing Location [facility] [place] [facility]-1 [address] - [address] [facility] [address]
--- OUTSIDE RECORDS SUMMARY | 2024-07-29 11:13 | External Medical Summary | Summary of Care ---
Author Name Unknown Organization [facility] Address [address] [place] [address] Phone [phone] Care Team Providers Care Dope House Operator Helper Name Role Phone Ariella Starks DO Primary Care Provider [phone] [phone] Reason for Visit * Reason Comments Acute Pt here for c/o giulia l issues. Pt reports that for the last month she has only been having about 3-4 small BM's a day. Pt also report that for a few days she was noticing bright red blood in the toilet. For that last 2 days pt has no no bowel movements. Encounter Details Date Type Department Care Team (Late st Contact Info) Description 03/30/2024 1:20 PM EST Office Visit Family Practice [facility] [address] [facility] [place] [address] Ariella Starks DO [address] [facility] [place] [address] Hemorrhoids, external without complications*; HTN, goal below 130/80; Need for pneumococcal vaccination Allergies Active Allergy Reactions Criticality Noted Date Comments Influenza Virus Vacc Hives 12/06/2010 documented as of this encounter (statuses as of 03/30/2024) Medications Doxylamine Succinate (Sleep) 25 MG Oral Tablet (Unisom) Take 1 Tablet by mouth at bedtime as needed. Active Nicotine Polacrilex 4 MG Mouth/Throat Gum Take 1 Each by mouth daily first thing in the morning. Active Escitalopram Oxalate 10 MG Oral Tablet (Lexapro)Indicati ons:Depression, major, in remission (HCC) Take 1 Tablet by mouth in the morning. 90 Tablet 3 04/03/19 24 Active Omeprazole 40 MG Oral Capsule Delayed Release (PriLOSEC)Indicat ions:Acute gastritis without hemorrhage, unspecified gastritis type Take 1 Capsule by mouth in the morning. 1 hour before the first meal of the day. 90 Capsule 3 06/13/19 24 Active Naproxen 500 MG Oral Tablet (Naprosyn)Indicat ions:Chronic midline low back pain without sciatica One pill by mouth twice a day with food. 180 Tablet 1 11/02/19 24 Active Lisinopril 40 MG Oral TabletIndications [...] weeks. 28 g 1 03/30/19 25 Active Multi-Day Oral Tablet Take 1 Tablet by mouth in the morning. 025 Discontin ued(Medic ation List Clean Up) traZODone HCl 50 MG Oral Tablet (Desyrel)Indicati ons:Primary insomnia Take 1 Tablet by mouth at bedtime. 30 Tablet 5 09/26/19 24 025 Discontin ued(Medic ation List Clean Up) Hospital, Clinic, or Other Facility Administered Medication Ordered Dose Route Frequency Start Date End Date Status Denosumab (Prolia) subcut inj 60 mgIndications:Senile osteoporosis 60 mg SC [id number] 05/03/2023 04/27/2024 Active documented as of this encounter (statuses as of 03/30/2024) Active Problems Problem Noted Date Diagnosed Date PVC (premature ventricular contraction) 04/04/19 20 Allergy to influenza vaccine 03/16/2017 Other seborrheic keratosis 04/22/2013 Neoplasm of uncertain behavior of skin 4 Backache 03/02/2009 Depression, major, in remission Overview (03/02/2009): failed celexa Migraine with aura Overview (03/02/2009): 10+ per year Esophageal reflux documented as of this encounter (statuses as of 03/30/2024) Resolved Problems Problem Noted Date Diagnosed Date [...] as of this encounter (statuses as of 03/30/2024) Immunizations Name Administration Dates Next Due COVID-19 mRNA, LNP-s, No Pre serve, 2-Dose Series ([employer]) 06/26/2020,06/05/2020 COVID-19, LNP-s, No Preserve , Filiberto-sucrose, [...] 0 03/13/1980 - 03/13/2000 Smokeless Tobacco: Never Tobacco Cessation:Counseling Given: Not Answered Alcohol Use Standard Drinks/Week Comments Yes 0 [...] ages 0-17 years) Not on file 03/18/2024 Comments No Sex and Gender Information [...] Sign Reading Time Taken Comments Blood Pressure 160/94 03/30/2024 1:03 PM EST Pulse 88 03/30/2024 1:03 PM EST Temperature 36.7 °C (98.1 °F) 03/30/2024 1:03 PM ES T Respiratory Rate 16 03/30/2024 1:03 PM EST Oxygen Saturation 99% 03/30/2024 1:03 PM EST Inhaled Oxygen Concentration - - Weight 56.1 kg (123 lb 9.6 oz) 03/30/2024 1:03 P M EST Height 150.5 cm (4' 11.25") 03/30/2024 1:[address] Body Mass Index 24.75 03/30/2024 1:03 PM EST documented in this encounter Patient Instructions * Patient Instructions* Jesusita Hernández LPN - 03/30/2024 1:03 PM EST ~~PATIENT INSTRUCTIONS FOR PNEUMOCOCCAL VACCINE~~ Possible side effects of pneumococcal vaccine, (pneumonia shot), are usually mild and can include: 1. Soreness or redness at injection site 2. Low grade fever 3. Body aches You may use Tylenol/Acetaminophen as needed for these symptoms. LET YOUR DOCTOR KNOW IMMEDIATELY IF YOU HAVE DIFFICULTY BREATHING OR SWALLOWING, EXPERIENCE ITCHINGOF FEET OR HANDS, HAVE SWELLING OF EYES, FACE OR INSIDE OF NOSE. documented in this encounter Progress Notes * Ariella Starks, - 03/30/2024 1:09 PM EST Subjective: Courtney Matos is a 64 year old female. Chief Complaint Patient presents with Acute Pt here for c/o bowel issues. Pt reports that for the last month she has only been having about 3-4small BM's a day. Pt also report that for a few days she was noticing bright red blood in the toilet. For that last 2 days pt has no no bowel movements. HPI: Pt w/change in bowel habits. Started having several small soft BMs/day. 2 weeks ago had blood w/BMs, a fair amount. Bleeding stopped. + rectal pain, has hx of hemorrhoids. + straining. PHM: Patient Active Problem List Diagnosis Depression, major, in remission (HCC) Migraine with aura Backache Esophageal reflux Other seborrheic keratosis Neoplasm of uncertain behavior of skin Allergy to influenza vaccine PVC (premature ventricular contraction) Current Outpatient Medications Medication Sig Dispense Refill Doxylamine Succinate (Sleep) 25 MG Oral Tablet (Unisom) Take 1 Tablet by mouth at bedtime as needed. Nicotine Polacrilex 4 MG Mouth/Throat Gum Take 1 Each by mouth daily first thing in the morning. Escitalopram Oxalate 10 MG Oral Tablet (Lexapro) Take 1 Tablet by mouth in the morning. 90 Tablet 3 Omeprazole 40 MG Oral Capsule Delayed Release (PriLOSEC) Take 1 Capsule by mouth in the morning. 1 hour before the first meal of the day. 90 Capsule 3 Naproxen 500 MG Oral Tablet (Naprosyn) One pill by mouth twice a day with food. 180 Tablet 1 Lisinopril 40 MG Oral Tablet Take 1 Tablet by mouth in the morning. 90 Tablet 1 SUMAtriptan Succinate 100 MG Oral Tablet (Imitrex) One pill by mouth at onset of migraine. May repeat in 2 hours but not more than 2 tablets in 24 hours 27 Tablet 3 Current Facility-Administered Medications Medication Dose Route Frequency Provider Last Rate Last Admin Denosumab (Prolia) subcut inj 60 mg 60 mg Subcutaneous Q6 Months Galen Raymond CRNP Past Medical History: Diagnosis Date Depressive disorder, not elsewhere classified 2003 failed celexa Esophageal reflux Generalized osteoarthritis primary back uses celebrex, occ alleve Lumbago followed by outside ortho Menopausal and postmenopausal disorder on premarin Migraine with aura 10+ per year Urticaria chronic on zyrtec Past Surgical History: Procedure Laterality Date COLONOSCOPY, DIAGNOSTIC (RECTUM) 02/21/2011 external hemorrhoids repeat in 10 years COLONOSCOPY, DIAGNOSTIC (RECTUM) 06/27/2022 normal, repeat 10 yrs / COLONOSCOPY FLEXIBLE PROXIMAL DIAGNOSTIC performed by Henry Hernandez MD at [facility] DENTAL SURGERY PROCEDURE NEC 1980 DEXA SCAN/BONE MINERAL AXIAL 08/2010 T = -1.5, repeat 5 years LAP;W/HYSTERECTOMY 1988 Hysterectomy Complete-endometriosis OTHER 2005 gastric bypass-Cecy Rou-en Y REMOVAL OF APPENDIX 1988 Appendectomy c uterus TOTAL ABD HYSTERECTOMY W/WO REMOVAL OF TUBE(S) age 30 Review of patient's allergies indicates: Allergen Reactions Influenza Virus Vacc Hives Objective: BP 160/94 (BP Site: Left Arm, BP Position: Sitting, BP Cuff Size: Regular) | Pulse 88 | Temp 98.1 °F (36.7 °C) (Tympanic) | Resp 16 | Ht 4' 11.25" (1.505 m) | Wt 123 lb 9.6 oz (56.1 kg) | SpO2 99% | BMI 24.75 kg/m² | BSA 1.53 m² Review of Systems: As per HPI, all other ROS neg. Physical Exam: General: alert, healthy, and no distress Rectal: anus normal, digital rectal exam negative, anal sphincter tone normal, positive findings: +inflamed external hemorrhoid Hemorrhoids, external without complications (Primary) - Hydrocortisone (Perianal) 2.5 % External Cream; Administer into the rectum 2 times a day. For 2 weeks. Suspect bleeding 2/2 hemorrhoids, colonoscopy 2 years ago unremarkable but would consider repeat ifsx persist Rec miralax 1/2 - 1 capful daily for constipation Avoid straining HTN, goal below 130/80 - amLODIPine Besylate 2.5 MG Oral Tablet (Norvasc); Take 1 Tablet by mouth in the morning. Need for pneumococcal vaccination - PNEUMOCOCCAL VACC, PCV20, IM ([id number]) Follow up: as needed. Ariella Starks DO * Jesusita Hernández LPN - 03/30/2024 1:03 PM EST Immunization Administration Documentation Time Out Procedure Performed: Yes Patient Identified (Ask Name/Date of ): Yes Does the patient have a fever greater than 101 degrees today? No Patient allergic to latex? No VFC Stock: No Immunization(s) verified: Yes, Immunization Name: Prevnar 20 (PCV20), VIS Sheet(s) given: Yes Verified Side and Site: Yes Verified Shot(s) with Parent(s)/Patient: Yes documented in this encounter Plan of Treatment Upcoming Encounters Date Type Department Care Team (Late st Contact Info) Description 09/26/2024 9:15 AM EDT Imaging Radiology [facility] [address] [place] [phone] Scheduled [...] 11/03/2021, 09/10, 08/11/2010 Lipid Panel 10/13/2027 10/12/2022, 0707/2021, 11/06/2020, Additional history exists DTap/Tdap Vaccines (3 [...] as of this encounter Visit Diagnoses Diagnosis Hemorrhoids, external without complications- Primary External hemorrhoids without mention of complication HTN, goal below 130/80 Unspecified essential hypertension Need for pneumococcal vaccination Need for prophylactic vaccination against streptococcus pneumoniae (pneumococcus) documented in this encounter Care Teams Dope House Operator Helper Relationship Specialty Start Date End Date Ariella Starks DO [address] [place] [address] PCP - General Family Medicine 08/03/18 documented as of this encounter
--- OUTSIDE RECORDS SUMMARY | 2024-07-29 11:13 | External Medical Summary | Summary of Care ---
Author Name Unknown Organization [facility] Address [address] [place] [address] Phone [phone] Care Team Providers Care Cementer Name Role Phone Ariella Starks DO Primary Care Provider [phone] Reason for Visit * Reason Comments Fever Cough Congestion Encounter Details Date Type Department Care Team (Late st Contact Info) Description 04/24/2024 11:00 AM [facility] Convenient Care Visit [facility] [address] [place] [address] Yvrose Frausto CRNP [address] [place] [address] LRTI (lower respiratory tract infection)*; Fever, unspecified fever cause Allergies Active Allergy Reactions Criticality Noted Date Comments Influenza Virus Vacc Hives 12/06/2010 documented as of this encounter (statuses as of 04/24/2024) Medications Doxylamine Succinate (Sleep) 25 MG Oral Tablet (Unisom) Take 1 Tablet by mouth at bedtime as needed. Active Nicotine Polacrilex 4 MG Mouth/Throat Gum Take 1 Each by mouth daily first thing in the morning. Active Escitalopram Oxalate 10 MG Oral Tablet (Lexapro)Indicati ons:Depression, major, in remission (HCC) Take 1 Tablet by mouth in the morning. 90 Tablet 3 4 Active Omeprazole 40 MG Oral Capsule Delayed [...] 2 weeks. 28 g 1 5 Active Azithromycin 250 MG Oral Tablet (Zithromax)Indica tions:LRTI (lower respiratory tract infection),Fever, unspecified fever cause Take 2 tabs by mouth on the first day, then 1 tab daily on days two through five 6 Tablet 5 04/29/19 25 Active predniSONE 20 MG Oral Tablet (Deltasone)Indica tions:LRTI (lower respiratory tract infection),Fever, unspecified fever cause Take 1 Tablet by mouth in the morning for 5 days. 5 Tablet 5 04/29/19 25 Active Hospital, Clinic, or Other Facility Administered Medication Ordered Dose Route Frequency Start Date End Date Status Denosumab (Prolia) subcut inj 60 mgIndications:Senile osteoporosis 60 mg SC [id number] 05/03/2023 04/27/2024 Active documented as of this encounter (statuses as of 04/24/2024) Active Problems Problem Noted Date Diagnosed Date PVC (premature ventricular contraction) 04/04/19 Allergy to influenza vaccine 03/16/2017 Other seborrheic keratosis 04/22/2013 Neoplasm of uncertain behavior of skin 4 Backache 03/02/2009 Depression, major, in remission Overview (03/02/2009): failed celexa Migraine with aura Overview (03/02/2009): 10+ per year Esophageal reflux documented as of this encounter (statuses as of 04/24/2024) Resolved Problems Problem Noted Date Diagnosed Date [...] as of this encounter (statuses as of 04/24/2024) Immunizations Name Administration Dates Next Due COVID-19 mRNA, LNP-s, No Pre serve, 2-Dose Series ([employer]) 06/26/2020,06/05/2020 COVID-19, LNP-s, No Preserve , Filiberto-sucrose, Ages 12+ ([employer]) 09/14/2021 COVID-19, MRNA-LNP, 24-25, P R, 30MCG/0.3ML, [...] 03/13/2000 Smokeless Tobacco: Never Tobacco Cessation:Counseling Given: No Alcohol Use Standard Drinks/Week Comments Yes 0 [...] Sign Reading Time Taken Comments Blood Pressure 134/86 04/24/2024 11:00 AM EST Pulse 105 04/24/2024 11:00 AM EST Temperature 38.2 °C (100.8 °F) 04/24/2024 11:00 AM EST Respiratory Rate 16 04/24/2024 11:00 AM EST Oxygen Saturation 97% 04/24/2024 11:00 AM EST Inhaled Oxygen Concentration - - Weight 55.5 kg (122 lb 6.4 oz) 04/24/2024 11:00 AM EST Height 150.5 cm (4' 11.25") 04/24/2024 11:00 AM EST Body Mass Index 24.51 04/24/2024 11:00 AM EST documented in this encounter Patient Instructions * Patient Instructions* Yvrose Frausto CRNP - 04/24/2024 11:17 AM EST Start a daily nasal spray such as Flonase, Nasacort, OR Nasonex. They work best if used consistently. In addition to one of these medicated nasal sprays, use saline nasal spray to avoid dryness and thin out mucous. Over the Counter (OTC) antihistamine (claritin, zyrtec, xyzal or karen) can also be helpful for sinus symptoms. OTC cough suppressants as needed, including delsym, cough drops, honey. OTC expectorants such as Robitussin or Mucinex can help thin mucous. Continue supportive measures: Increase clear, non-sugary fluid intake. Get plenty of rest. Use a cool mist vaporizer or humidifier daily and you can take hot showers for steam therapy. Do warm salt water gargles and/or chloraseptic throat spray, throat lozenges (Cepacol) for any sorethroat. Honey, if not concerned about diabetes or elevated blood sugar levels, can also be very helpful forsorethroat. You may also use acetaminophen OTC for relief of pain or fevers. Follow up with PCP or return if no improvement in a week, or sooner if worse. Go to the ED if any severe symptoms appear acutely. documented in this encounter Progress Notes * Yvrose Frausto CRNP - 04/24/2024 11:05 AM EST CONVENIENT CARE NOTE Nursing Notes: Fela Larios, [facility] 04/24/24 1105 Signed Courtney Matos is a 64 year old female who presents to walk-in clinic today complaining of Chief Complaint Patient presents with Fever Cough Congestion Brief history:HAS chest congestion, productive cough at night and unproductive throughout the day, fevers (highest 100.8F). Has current fever Onset/duration: 1 week . OTC treatments tried:Mucinex, last dose yesterday Effectiveness: No relief Patient is accompanied by self for today's visit. CC & HPI: Courtney Matos is a 64 year old female who presents with cough x 1 week. She states she think she had the flu last week but was feeling better until a couple of days ago. Her cough is productive at night and she has chest tightness when coughing or deep breathing. She also thought her fever had resolved but she has a fever today in office. She denies any respiratory disease history. She was a previous smoker but quit > 30 years ago. ROS: Review of Systems Constitutional: Positive for appetite change (decreased), fatigue and fever. HENT: Positive for congestion. Respiratory: Positive for cough and chest tightness. Gastrointestinal: Negative for diarrhea, nausea and vomiting. Neurological: Positive for headaches. Patient denies additional complaints. PAST MEDICAL HISTORY: Patient Active Problem List Diagnosis Depression, major, in remission (HCC) Migraine with aura Backache Esophageal reflux Other seborrheic keratosis Neoplasm of uncertain behavior of skin Allergy to influenza vaccine PVC (premature ventricular contraction) Past Surgical History: Procedure Laterality Date COLONOSCOPY, DIAGNOSTIC (RECTUM) 02/21/2011 external hemorrhoids repeat in 10 years COLONOSCOPY, DIAGNOSTIC (RECTUM) 06/27/2022 normal, repeat 10 yrs / COLONOSCOPY FLEXIBLE PROXIMAL DIAGNOSTIC performed by Henry Hernandez MD at ENDOSCOPY [facility] DENTAL SURGERY PROCEDURE NEC 1980 DEXA SCAN/BONE MINERAL AXIAL 08/2010 T = -1.5, repeat 5 years LAP;W/HYSTERECTOMY 1988 Hysterectomy Complete-endometriosis OTHER 2005 gastric bypass-Mize Rou-en Y REMOVAL OF APPENDIX 1988 Appendectomy c uterus TOTAL ABD HYSTERECTOMY W/WO REMOVAL OF TUBE(S) age 30 Review of patient's allergies indicates: Allergen Reactions Influenza Virus Vacc Hives Current Outpatient Medications Medication Sig Dispense Refill [...] tablets in 24 hours 27 Tablet 3 amLODIPine Besylate 2.5 MG Oral Tablet (Norvasc) Take 1 Tablet by mouth in the morning. 90 Tablet 3 Hydrocortisone (Perianal) 2.5 % External Cream Administer into the rectum 2 times a day. For 2 weeks. 28 g 1 Azithromycin 250 MG Oral Tablet (Zithromax) Take 2 tabs by mouth on the first day, then 1 tab dailyon days two through five 6 Tablet 0 predniSONE 20 MG Oral Tablet (Deltasone) Take 1 Tablet by mouth in the morning for 5 days. 5 Tablet0 Current Facility-Administered Medications Medication Dose Route Frequency Provider Last Rate Last Admin Denosumab (Prolia) subcut inj 60 mg 60 mg Subcutaneous Q6 Months Galen Raymond CRNP Family History Problem Relation Name Age of Onset Cancer Mother lymphoma/ovarian Ovarian cancer Mother Other (Other) Mother high cholesterol, IGT, brain aneurysm dx 63 No Past Hx Father UNKNOWN No Past Hx Brother No Past Hx Grandmother (Maternal) Heart Disorder Grandfather (Maternal) Cancer Grandfather (Maternal) ? lung vs black lung No Past Hx Grandmother (Paternal) Cancer Grandfather (Paternal) colon CA dx late 60's Lung Disorder Grandfather (Paternal) Colon polyps Son Breast Cancer Aunt (Paternal) EXAM: BP 134/86 | Pulse 105 | Temp (!) 38.2 °C (100.8 °F) (Tympanic) | Resp 16 | Ht 1.505 m (4' 11.25")| Wt 55.5 kg (122 lb 6.4 oz) | SpO2 97% | BMI 24.51 kg/m² | BSA 1.52 m² Physical Exam Vitals and nursing note reviewed. Constitutional: General: She is not in acute distress. Appearance: Normal appearance. HENT: Head: Normocephalic and atraumatic. Right Ear: Tympanic membrane normal. Left Ear: Tympanic membrane normal. Nose: Nose normal. Mouth/Throat: Mouth: Mucous membranes are moist. Pharynx: Posterior oropharyngeal erythema present. Eyes: Conjunctiva/sclera: Conjunctivae normal. Cardiovascular: Rate and Rhythm: Regular rhythm. Tachycardia present. Heart sounds: Normal heart sounds. Pulmonary: Effort: Pulmonary effort is normal. Breath sounds: Rales present. Chest: Chest wall: Tenderness present. Abdominal: General: Abdomen is flat. Bowel sounds are normal. Palpations: Abdomen is soft. Tenderness: There is no abdominal tenderness. Musculoskeletal: General: Normal range of motion. Cervical back: Normal range of motion and neck supple. No tenderness. Lymphadenopathy: Cervical: No cervical adenopathy. Skin: General: Skin is warm. Neurological: General: No focal deficit present. Mental Status: She is alert. Psychiatric: Mood and Affect: Mood normal. ASSESSMENT & PLAN Problem List Items Addressed This Visit None Visit Diagnoses LRTI (lower respiratory tract infection) - Primary Relevant Medications Azithromycin 250 MG Oral Tablet (Zithromax) predniSONE 20 MG Oral Tablet (Deltasone) Fever, unspecified fever cause Relevant Medications Azithromycin 250 MG Oral Tablet (Zithromax) predniSONE 20 MG Oral Tablet (Deltasone) Concern for pneumonia. Will start on azithromycin and 5 day prednisone course. Take both medications with food. Tylenol prn for fever. Continue Mucinex DM for congestion. Follow up closely with PCP if not getting better as expected. Proceed to ED for acutely worsening sxs. Rest of plan as stated in pt instructions below: Patient Goals for plan of care discussed in detail. All questions and concerns addressed. The pt verbalized understanding and agreement with plan. Patient Instructions Start a daily nasal spray such as Flonase, Nasacort, OR Nasonex. They work best if used consistently. In addition to one of these medicated nasal sprays, use saline nasal spray to avoid dryness and thin out mucous. Over the Counter (OTC) antihistamine (claritin, zyrtec, xyzal or karen) can also be helpful for sinus symptoms. OTC cough suppressants as needed, including delsym, cough drops, honey. OTC expectorants such as Robitussin or Mucinex can help thin mucous. Continue supportive measures: Increase clear, non-sugary fluid intake. Get plenty of rest. Use a cool mist vaporizer or humidifier daily and you can take hot showers for steam therapy. Do warm salt water gargles and/or chloraseptic throat spray, throat lozenges (Cepacol) for any sorethroat. Honey, if not concerned about diabetes or elevated blood sugar levels, can also be very helpful forsorethroat. You may also use acetaminophen OTC for relief of pain or fevers. Follow up with PCP or return if no improvement in a week, or sooner if worse. Go to the ED if any severe symptoms appear acutely. JOYCE Munoz [facility] [address] [facility] [address] documented in this encounter Nursing Notes * Fela Larios CMA - 04/24/2024 11:02 AM EST Courtney Matos is a 64 year old female who presents to walk-in clinic today complaining of Chief Complaint Patient presents with Fever Cough Congestion Brief history:HAS chest congestion, productive cough at night and unproductive throughout the day, fevers (highest 100.8F). Has current fever Onset/duration: 1 week . OTC treatments tried:Mucinex, last dose yesterday Effectiveness: No relief Patient is accompanied by self for today's visit. documented in this encounter Plan of Treatment Upcoming Encounters Date Type Department Care Team (Late st Contact Info) Description 09/26/2024 9:15 AM EDT Imaging Radiology [address] [place] [address] Scheduled Procedures Name Priority Associated Diagnoses Date/Ti me COLONOSCOPY FLEXIBLE PROXIMA L DIAGNOSTIC Recall Special screening for malignant neoplasms, colon Health Maintenance Due Date Last Done Comments Cologuard 2006 Fecal Occult Blood Test 2006 Sigmoidoscopy 2006 Depression Monitoring 09/25/2024 09/26/2023 Mammogram 09/25/2024 09/26/2023, 09/10, 09/14/2021, Additional history exists DXA Scan 11/03/2026 11/03/2021, 09/10, 08/11/2010 Lipid Panel 10/13/2027 10/12/2022, 2022, 11/06/2020, Additional history exists DTap/Tdap Vaccines (3 [...] as of this encounter Visit Diagnoses Diagnosis LRTI (lower respiratory tract infection)- Primary Other diseases of respiratory system, not elsewhere classified Fever, unspecified fever cause documented in this encounter Care Teams Cementer Relationship Specialty Start Date End Date Ariella Starks DO [address] [place] [address] PCP - General Family Medicine 08/03/18 documented as of this encounter
--- OUTSIDE RECORDS SUMMARY | 2024-07-29 11:13 | External Medical Summary | Summary of Care ---
Author Name Unknown Organization [facility] Address [address] [place] [address] Phone [phone] Care Team Providers Care Nail Making Machine Setter Name Role Phone Ariella Starks DO Primary Care Provider [phone] Reason for Visit * Reason Comments Outpatient Testing Encounter Details Date Type Department Care Team (Late st Contact Info) Description 05/01/2024 10:40 AM EST Laboratory Laboratory, Health system [address] [place] [address] [facility] [address] [place] [address] [employer] Other*[id number]; Pneumonia of right lung due to infectious organism, unspecified part of lung Allergies Active Allergy Reactions Criticality Noted Date Comments Influenza Virus Vacc Hives 12/06/2010 documented as of this encounter (statuses as of 05/02/2024) Medications Doxylamine Succinate (Sleep) 25 MG Oral [...] as of this encounter (statuses as of 05/02/2024) Active Problems Problem Noted Date Diagnosed Date PVC (premature ventricular contraction) 04/04/19 20 Allergy to influenza vaccine 03/16/2017 Other seborrheic keratosis 04/22/2013 Neoplasm of uncertain behavior of skin 4 Backache 03/02/2009 Depression, major, in remission Overview (03/02/2009): failed celexa Migraine with aura Overview (03/02/2009): 10+ per year Esophageal reflux documented as of this encounter (statuses as of 05/02/2024) Resolved Problems Problem Noted Date Diagnosed Date [...] as of this encounter (statuses as of 05/02/2024) Immunizations Name Administration Dates Next Due COVID-19 mRNA, LNP-s, No Pre serve, 2-Dose Series ([employer]) 06/26/2020,06/05/2020 COVID-19, LNP-s, No Preserve , Filiberto-sucrose, Ages 12+ ([employer]) 09/14/2021 COVID-19, MRNA-LNP, 24-25, P R, 30MCG/0.3ML, [...] as of this encounter Miscellaneous Notes * Result Encounter Note - Yovani Hendricks PA-C - 05/01/2024 8:37 PM EST WNL documented in this encounter Plan of Treatment Upcoming Encounters Date Type Department Care Team (Late st Contact Info) Description 09/26/2024 9:15 AM EDT Imaging Radiology [facility] [facility] [place] [address] [place] [address] Pending Results Name Type Priority Associated Diagnoses Date /Time MYCODE SUBSEQUENT ADULT Lab Routine [employer] Other*[id number] 05/01/2024 10:37 AM EST MYCODE SST1 Lab Routine [employer] Other*[id number] 05/01/2024 10:37 AM EST MYCODE SST2 Lab Routine [employer] Other*[id number] 05/01/2024 10:37 AM EST Scheduled Procedures Name [...] to infectious organism, unspecified part of lung BNP (NT-PROBNP) Routine 05/01/2024 10:37 AM EST Pneumonia of [...] Final Result [facility] [place] [facility] [address] [facility] [place] [address] * (ABNORMAL) DIFFERENTIAL, AUTOMATED (05/01/2024 10:37 AM [...] K/ul 05/01/2024 11:49 AM EST [facility] [place] [facility] Absolute Monocytes 0.53 0.00 - 1.10 K/uL 05/01/2024 11:49 AM EST [facility] [place] [facility] Absolute Eosinophils 0.04 0.00 - 0.70 K/uL 05/01/2024 11:49 AM EST [facility] [place] [facility] Absolute Basophils 0.01 0.00 - 0.20 K/uL 05/01/2024 11:49 AM EST [facility] [place] [facility] Blood Venous blood specimen / Unknown Venipuncture / Unknown 05/01/2024 10:37 AM EST 05/01/2024 10:37 AM EST Yovani Hendricks PA-C LAB BLOOD ORDERABLES Final Result [facility] [place] [facility] [address] [facility] [place] [address] * (ABNORMAL) CBC (05/01/2024 10:37 AM EST) [facility] WBC 3.91(L) 4.00 - 10.80 K/uL 05/01/2024 11:49 AM EST [facility] [place] [facility] RBC 4.21 3.85 - 5.15 M/uL 05/01/2024 11:49 AM EST [facility] [place] [facility] HGB 14.6 12.0 - 15.3 g/dL 05/01/2024 11:49 AM EST [facility] [place] [facility]10 HCT 42.7 36.0 - 45.2 % 05/01/2024 11:49 AM EST [facility] [place] [facility] MCV 101.4 81.5 - 97.5 fL 05/01/2024 11:49 AM EST [facility] [place] [facility] MCH 34.7 27.0 - 34.0 pg 05/01/2024 11:49 AM EST [facility] [place] [facility] MCHC 34.2 32.0 - 36.0 g/dL 05/01/2024 11:49 AM EST [facility] [place] [facility] RDW 11.7 11.5 - 15.5 % 05/01/2024 11:49 AM EST [facility] [place] [facility] PLT 201 140 - 400 K/uL 05/01/2024 11:49 AM EST [facility] [place] [facility] MPV 10.1 6.6 - 11.1 fL 05/01/2024 11:49 AM EST [facility] [place] [facility] Blood Venous blood specimen / Unknown Venipuncture / Unknown 05/01/2024 10:37 AM EST 05/01/2024 10:37 AM EST Yovani Hendricks PA-C LAB BLOOD ORDERABLES Final Result [facility] [place] [facility] [address] [facility] [place] [address] * BNP, NT-PRO (05/01/2024 10:37 AM EST) BNP, NT-Pro <50 <300 pg/mL 05/01/2024 6:27 PM EST LABORATORY [facility] Blood Venous blood specimen / Unknown Venipuncture / Unknown 05/01/2024 10:37 AM EST 05/01/2024 10:37 AM EST Narrative LAB[facility]ATORY [facility] - 05/01/2024 6:27 PM EST Exclude Heart Failure: <300 pg/mL Diagnose Heart Failure: Age <50 yr: >450 pg/mL 50-75 yr: >900 pg/mL >75 yr: >1800 pg/mL GFR is 30-59 mL/min: >1200 pg/mL or Age-adjusted values GFR <30 mL/min: do not use, not reliable Prognostic threshold: 1000 pg/mL us Yovani Hendricks PA-C LAB BLOOD ORDERABLES Final Result [facility]ORY [facility] [address] [place] [address] * (ABNORMAL) COMPREHENSIVE METABOLIC PANEL (05/01/2024 10:37 AM EST) BUN 10 6 - 20 mg/dL 05/01/2024 11:57 AM EST [facility] [place] [facility] CREATININE 0.5 0.5 - 1.0 mg/dL 05/01/2024 11:57 AM EST [facility] [place] [facility] EGFR >90 >=60 mL/min 05/01/2024 11:57 AM EST [facility] [place] [facility] Comment:eGFR is calculated b ased on the CKD-EPI 2020 equation. SODIUM 140 135 - 146 mmol/L 05/01/2024 11:57 AM EST [facility] [place] [facility] POTASSIUM 4.0 3.5 - 5.1 mmol/L 05/01/2024 11:57 AM EST [facility] [place] [facility] CHLORIDE 101 98 - 107 mmol/L 05/01/2024 11:57 AM EST [facility] [place] [facility] CO2 29 22 - 32 mmol/L [...] [place] [facility] [place] [address] documented in this encounter Visit Diagnoses Diagnosis [employer] Other*[id number] Pneumonia of right lung due to infectious organism, unspecified part of lung documented in this encounter Care Teams Nail Making Machine Setter Relationship Specialty Start Date End Date Ariella Starks DO [address] [place] [address] PCP - General Family Medicine 08/03/18 documented as of this encounter
--- OUTSIDE RECORDS SUMMARY | 2024-07-29 11:13 | External Medical Summary | Summary of Care ---
Author Name Unknown Organization [facility] Address [address] [place] [address] Phone [phone] Care Team Providers Care Manufacturer Representative Name Role Phone Ariella Starks DO Primary Care Provider [phone] Reason for Visit * Reason Onset Date Comments Cough Other No appetite Respiratory Infection 05/01/2024 Encounter Details Date Type Department Care Team (Latest Contact Info) Description 05/01/2024 9:30 AM EST Convenient Care Visit [facility] [address] [place] [address] Yovani Hendricks PA-C [facility] [place] [address] Pneumonia of right lung due to infectious organism, unspecified part of lung* Allergies Active Allergy Reactions Criticality Noted Date [...] mRNA, LNP-s, No Pre serve, 2-Dose Series ([employer]) 06/26/2020,06/05/2020 COVID-19, LNP-s, No Preserve , Filiberto-sucrose, Ages 12+ ([employer]) 09/14/2021 COVID-19, MRNA-LNP, 24-25, P R, 30MCG/0.3ML, [...] Sign Reading Time Taken Comments Blood Pressure 131/88 05/01/2024 9:40 AM EST Pulse 90 05/01/2024 9:40 AM EST Temperature 36.5 °C (97.7 °F) 05/01/2024 9:40 AM ES T Respiratory Rate 20 05/01/2024 9:40 AM EST Oxygen Saturation 97% 05/01/2024 9:40 AM EST Inhaled Oxygen Concentration - - Weight 54 kg (119 lb) 05/01/2024 9:40 AM EST Height 152.4 cm (5') 05/01/2024 9:40 AM EST Body Mass Index 23.24 05/01/2024 9:40 AM EST documented in this encounter Patient Instructions * Patient Instructions* Yovani Hendricks PA-C - 05/01/2024 10:24 AM EST Start a daily nasal spray such as Flonase, Nasacort, OR Nasonex. They work best if used consistently. In addition to one of these medicated nasal sprays use saline nasal spray to avoid dryness and thinout mucous Over the Counter (OTC) antihistamine (claritin, zyrtec, xyzal or karen) can also be helpful for sinus symptoms. OTC decongestants: Sudafed, Mucinex-D (may have to get from behind pharmacy counter; you have to show your ID) can be used for nasal/sinus congestion for just a few days. If you have high blood pressure, you can use Coricidin. OTC cough suppressants as needed, including delsym, robitussin, cough drops, honey. Continue supportive measures: Increase clear, non-sugary fluid intake. Get plenty of rest Use a cool mist vaporizer or humidifier daily and you can take hot showers for steam therapy. Do warm salt water gargles and/or chloraseptic throat spray, throat lozenges (Cepacol) for any sorethroat. Honey, if not concerned about diabetes or elevated blood sugar levels, can also be very helpful forsorethroat. You may also use ibuprofen or acetaminophen OTC for relief of pain or fevers. If you had a negative rapid strep test, we will inform you if your PCR ("the send out") comes back positive, and start you on antibiotics. Otherwise, you may assume the PCR was also negative. If you had a viral swab (e.g. COVID, Flu, RSV, or otherwise), we will notify you if you test positive. If you do not hear from us, assume your test was negative. Follow up with PCP or return if no improvement in a week, or sooner if worse. Go to the ED if any severe symptoms appear acutely documented in this encounter Progress Notes * Yovani Hendricks PA-C - 05/01/2024 10:20 AM EST Nursing Notes: Luci Cope, FAMILY HEALTH NURSE PRACTITIONER 05/01/24 0941 Signed Pt was seen here last week and dx with resp infect. Pt states that she is still coughing a lot and not eating. Pt states that she finished abx and steroids. Courtney Matos is a 64 year old female who presents with lower respiratory symptoms for 2 week(s) Patient was accompanied by Spouse. HPI Severity of Symptoms: Moderate Modifying Factors (what was done since onset of symptoms): was seen here on 04/24 and treated for LRTI with steroid and Zpack. She notes that the fever and chest burning has resolved, but cough has persisted, as well as sputumproduction Timing (how often does it occur): constant Quality (feels like): worse when lays down, hears rattling. Other associated Signs and Symptoms: sinus has resolved Reports mild SOB Denies cp, palp, n/v/d/c ROS See HPI HISTORY Past Medical History: Diagnosis Date Depressive disorder, [...] performed by Henry Hernandez MD at ENDOSCOPY [facility] DENTAL SURGERY PROCEDURE NEC 1980 DEXA SCAN/BONE MINERAL AXIAL 08/2010 T = -1.5, repeat 5 years LAP;W/HYSTERECTOMY 1988 Hysterectomy Complete-endometriosis OTHER 2005 gastric bypass-Cecy Rou-en Y REMOVAL OF APPENDIX 1988 Appendectomy c uterus TOTAL ABD HYSTERECTOMY W/WO REMOVAL OF TUBE(S) age 30 Social History Tobacco Use Smoking status: Former Current packs/day: 0.00 Average packs/day: 0.8 packs/day for 20.0 years (15.0 ttl pk-yrs) Types: Cigarettes Start date: 03/13/1980 Quit date: 03/13/2000 Years since quittin.1 Smokeless tobacco: Never Substance Use Topics Alcohol use: Yes Comment: 2-3 drinks/day Vaping/E-Cigarette Use Vaping/E-Cigarette Use Never User Vaping/E-Cigarette Substances Vaping/E-Cigarette Devices Current Outpatient Medications Medication Sig Dispense Refill Doxylamine Succinate (Sleep) 25 MG Oral Tablet (Unisom) Take 1 Tablet by mouth at bedtime as needed. Omeprazole 40 MG Oral Capsule Delayed Release [...] mouth in the morning. 90 Tablet 3 Escitalopram Oxalate 10 MG Oral Tablet (Lexapro) TAKE 1 TABLET BY MOUTH ONCE DAILY IN THE MORNING 30 Tablet 5 Amoxicillin-Pot Clavulanate 875-125 MG Oral Tablet (Augmentin) Take 1 Tablet by mouth in the morning and 1 Tablet before bedtime. Do all this for 10 days. 20 Tablet 0 Benzonatate 100 MG Oral Capsule Take 1 Capsule by mouth 3 times a day as needed for Cough. 30 Capsule 1 Albuterol Sulfate HFA 108 (90 Base) MCG/ACT Inhalation Aerosol Solution Inhale 2 Puffs by mouth every 4 hours as needed for Dyspnea or Wheezing. 18 g 0 Nicotine Polacrilex 4 MG Mouth/Throat Gum Take 1 Each by mouth daily first thing in the morning. Hydrocortisone (Perianal) 2.5 % External Cream Administer into the rectum 2 times a day. For 2 weeks. 28 g 1 No current facility-administered medications for this visit. Review of patient's allergies indicates: Allergen Reactions Influenza Virus Vacc Hives Family History Problem Relation Name Age of [...] Colon polyps Son Breast Cancer Aunt (Paternal) OBJECTIVE BP 131/88 | Pulse 90 | Temp 36.5 °C (97.7 °F) (Tympanic) | Resp 20 | Ht 1.524 m (5') | Wt 54 kg (119 lb) | SpO2 97% | BMI 23.24 kg/m² | BSA 1.51 m² Wt Readings from Last 1 Encounters: 05/01/24 54 kg (119 lb) General Appearance: awake, alert, no apparent distress HEENT: perrl and eomi tms - clear, normal light reflex, no erythema + red and irritated pharynx No sinus tenderness or facial pain to percussion No turbinate engorgement or discharge Neck: normal, supple, no adenopathy Respiratory: no wheezes, + rhonchi, and + crackles Heart: regular rate, regular rhythm, no murmurs , no rubs, and no gallops Skin: skin color, texture, turgor are normal, no rashes or significant lesions Patient Instructions Start a daily nasal spray such as Flonase, Nasacort, OR Nasonex. They work best if used consistently. In addition to one of these medicated nasal sprays use saline nasal spray to avoid dryness and thinout mucous Over the Counter (OTC) antihistamine (claritin, zyrtec, xyzal or karen) can also be helpful for sinus symptoms. OTC decongestants: Sudafed, Mucinex-D (may have to get from behind pharmacy counter; you have to show your ID) can be used for nasal/sinus congestion for just a few days. If you have high blood pressure, you can use Coricidin. OTC cough suppressants as needed, including delsym, robitussin, cough drops, honey. Continue supportive measures: Increase clear, non-sugary fluid intake. Get plenty of rest Use a cool mist vaporizer or humidifier daily and you can take hot showers for steam therapy. Do warm salt water gargles and/or chloraseptic throat spray, throat lozenges (Cepacol) for any sorethroat. Honey, if not concerned about diabetes or elevated blood sugar levels, can also be very helpful forsorethroat. You may also use ibuprofen or acetaminophen OTC for relief of pain or fevers. If you had a negative rapid strep test, we will inform you if your PCR ("the send out") comes back positive, and start you on antibiotics. Otherwise, you may assume the PCR was also negative. If you had a viral swab (e.g. COVID, Flu, RSV, or otherwise), we will notify you if you test positive. If you do not hear from us, assume your test was negative. Follow up with PCP or return if no improvement in a week, or sooner if worse. Go to the ED if any severe symptoms appear acutely ASSESSMENT AND PLAN Pneumonia of right lung due to infectious organism, unspecified part of lung (Primary) - Amoxicillin-Pot Clavulanate 875-125 MG Oral Tablet (Augmentin); Take 1 Tablet by mouth in the morning and 1 Tablet before bedtime. Do all this for 10 days. - Benzonatate 100 MG Oral Capsule; Take 1 Capsule by mouth 3 times a day as needed for Cough. - Albuterol Sulfate HFA 108 (90 Base) MCG/ACT Inhalation Aerosol Solution; Inhale 2 Puffs by mouth every 4 hours as needed for Dyspnea or Wheezing. - XR CHEST 2 VIEWS; Future; Expected date: 05/01/2024 - CBC WITH WBC DIFFERENTIAL; Future; Expected date: 05/01/2024 - COMPREHENSIVE METABOLIC PANEL; Future; Expected date: 05/01/2024 - BNP, NT-PRO; Future; Expected date: 05/01/2024 Suspect R sided PNA based on exam Mild improvement with macrolide. Will add augmentin and get labs/imaging Follow Up: Return for Patient to follow up with Primary Care Provider as directed. | For: Patient to follow up with Primary Care Provider as directed Patient goals for plan of care were discussed Yovani Hendricks PA-C [facility] [address] [facility] [address] documented in this encounter Nursing Notes * Luci Cope LPN - 05/01/2024 9:38 AM EST Pt was seen here last week and dx with resp infect. Pt states that she is still coughing a lot and not eating. Pt states that she finished abx and steroids. documented in this encounter Plan of Treatment Upcoming Encounters Date Type Department Care Team (Late st Contact Info) Description 09/26/2024 9:15 AM EDT Imaging Radiology [address], [place] [address] [place] [id number] Pending Results Name Type Priority Associated Diagnoses Date /Time XR CHEST 2 VIEWS Medical Imaging STAT Pneumonia of right lung due to infectious organism, unspecified part of lung 05/01/2024 11:08 AM EST BNP, NT-PRO Lab Routine Pneumonia of right lung due to infectious organism, unspecified part of lung 05/01/2024 10:37 AM EST Scheduled Orders Name Type Priority Associated Diagnoses Orde r Schedule XR CHEST 2 VIEWS Medical Imaging STAT Pneumonia of right lung due to infectious organism, unspecified part of lung Expected: 05/01/2024, Expires: 05/29/2024 BNP, NT-PRO Lab Routine Pneumonia of right lung due to infectious organism, unspecified part of lung Expected: 05/01/2024, Expires: 05/01/2025 Scheduled Procedures Name Priority Associated Diagnoses Date/Ti [...] encounter Results * (ABNORMAL) COMPREHENSIVE METABOLIC PANEL (05/01/2024 10:37 [...] [facility] [address] [place] [id number] documented in this encounter Visit Diagnoses Diagnosis Pneumonia of right lung due to infectious organism, unspecified part of lung- Primary documented in this encounter Care Teams Manufacturer Representative Relationship Specialty Start Date End Date Ariella Starks DO [address] [place] [address] PCP - General Family Medicine 08/03/18 documented as of this encounter
--- OUTSIDE RECORDS SUMMARY | 2024-07-29 11:13 | External Medical Summary ---
Author Name Unknown Address Unknown Organization [id number]:[facility] [place] [address] [place] [address] Laboratory Report Ordering Provider Test Date Status BREEZY REDDING 05/01/2024 10:37:25 Final Observation Date Value Abnormality Reference (Units ) Status WBC, Total 05/01/2024 10:37:25 3.91 Below low normal 4. 00-10.80 (K/uL) Final RBC 05/01/2024 10:37:25 4.21 3.85-5.15 (M/uL) Final Hemoglobin 05/01/2024 10:37:25 14.6 12.0-15.3 (g/dL) Final HCT 05/01/2024 10:37:25 42.7 36.0-45.2 (%) Final MCV 05/01/2024 10:37:25 101.4 81.5-97.5 (fL) Final MCH 05/01/2024 10:37:25 34.7 27.0-34.0 (pg) Final MCHC 05/01/2024 10:37:25 34.2 32.0-36.0 (g/dL) Final RDW 05/01/2024 10:37:25 11.7 11.5-15.5 (%) Final Platelets 05/01/2024 10:37:25 201 140-400 (K /uL) Final MPV 05/01/2024 10:37:25 10.1 6.6-11.1 ( fL) Final Performing Location [facility] [place] [address] [place] [id number]
--- OUTSIDE RECORDS SUMMARY | 2024-07-29 11:13 | External Medical Summary | Summary of Care ---
Author Name Unknown Organization [facility] Address [address] [place] [address] Phone [phone] Care Team Providers Care Purse Seining Hand Name Role Phone Ariella Starks DO Primary Care Provider [phone] Reason for Visit * Reason Comments Medication Refill Encounter Details Date Type Department Care Team ([facility] st Contact Info) Description [facility] [address] [place] [address] Yovani Hendricks PA-C [address] [place] [address] Pneumonia of right lung due to infectious [...] mRNA, LNP-s, No Pre serve, 2-Dose Series ([employer]) 06/26/2020,06/05/2020 COVID-19, LNP-s, No Preserve , Filiberto-sucrose, Ages 12+ ([employer]) 09/14/2021 COVID-19, MRNA-LNP, 24-25, P R, 30MCG/0.3ML, [...] encounter Miscellaneous Notes * Telephone Encounter - Kim Granados PHARM Tech - 05/01/2024 10:50 AM ESTNo prescriptions requested or ordered in this encounter documented in this encounter Plan of Treatment Upcoming Encounters Date Type Department Care Team (Late st Contact Info) Description 09/26/2024 9:15 AM EDT Imaging Radiology [address], [place] [address] [place] [phone] Scheduled Procedures [...] as of this encounter Visit Diagnoses Diagnosis Pneumonia of right lung due to infectious organism, unspecified part of lung documented in this encounter Care Teams Purse Seining Hand Relationship Specialty Start Date End Date Ariella Starks DO [address] [place] [address] PCP - General Family Medicine 08/03/18 documented as of this encounter
--- OUTSIDE RECORDS SUMMARY | 2024-07-29 11:13 | External Medical Summary | Summary of Care ---
Author Name Unknown Organization [facility] Address [address] [place] [address] Phone [phone] Care Team Providers Care It Applications Analyst Name Role Phone Demetria Santos DO Primary Care Provider [phone] Reason for Visit * Reason Onset Date Comments Medication Refill 03/04/2024 Encounter Details Date Type Department Care Team (Late st Contact Info) Description 03/04/2024 Refill Family Practice [facility] [address] [facility] [place] [address] Demetria Santos DO [address] [facility] [place] [place] [address] Migraine with aura and without status migrainosus, not intractable Allergies Active Allergy Reactions Criticality Noted Date Comments Influenza Virus Vacc Hives 12/06/2010 documented as of this encounter (statuses as of 03/05/2024) Medications Doxylamine Succinate (Sleep) 25 MG Oral Tablet (Unisom) Take 1 Tablet by mouth at bedtime as needed. Active Nicotine Polacrilex 4 MG Mouth/Throat Gum Take 1 Each by mouth daily first thing in the morning. Active Multi-Day Oral Tablet Take 1 Tablet by mouth in the morning. Active Escitalopram Oxalate 10 [...] the day. 90 Capsule 3 4 Active traZODone HCl 50 MG Oral Tablet (Desyrel)Indicat ions:Primary insomnia Take 1 Tablet by mouth at bedtime. 30 Tablet 5 4 Active Naproxen 500 MG Oral Tablet (Naprosyn)Indica tions:Chronic midline low back pain without sciatica One pill by mouth twice a day with food. 180 Tablet 1 4 Active Lisinopril 40 MG Oral TabletIndication s:HTN, [...] 24 hours 27 Tablet 3 4 Active SUMAtriptan Succinate 100 MG Oral Tablet (Imitrex)Indicat ions:Migraine with aura and without status migrainosus, not intractable One pill by mouth at onset of migraine. May repeat in 2 hours but not more than 2 tablets in 24 hours 27 Tablet 3 4 03/04/20 24 Discontinu ed(Refill) Hospital, Clinic, or Other Facility Administered Medication Ordered Dose Route Frequency Start Date End Date Status Denosumab (Prolia) subcut inj 60 mgIndications:Senile osteoporosis 60 mg SC [id number] 05/03/2023 04/27/2024 Active documented as of this encounter (statuses as of 03/05/2024) Active Problems Problem Noted Date Diagnosed Date PVC (premature ventricular contraction) 04/04/19 20 Allergy to influenza vaccine 03/16/2017 Other seborrheic keratosis 04/22/2013 Neoplasm of uncertain behavior of skin 4 Backache 03/02/2009 Depression, major, in remission Overview (03/02/2009): failed celexa Migraine with aura Overview (03/02/2009): 10+ per year Esophageal reflux documented as of this encounter (statuses as of 03/05/2024) Resolved Problems Problem Noted Date Diagnosed Date [...] as of this encounter (statuses as of 03/05/2024) Immunizations Name Administration Dates Next Due COVID-19 mRNA, LNP-s, No Pre serve, 2-Dose Series ([employer]) 06/26/2020,06/05/2020 COVID-19, LNP-s, No Preserve , Filiberto-sucrose, Ages 12+ ([employer]) 09/14/2021 COVID-19, MRNA-LNP, 24-25, P R, 30MCG/0.3ML, IM, 12YRS AND ABOVE ([employer]) 12/06/2023 Covid-19, Mrna, Lnp-s, Pf, B ivalent, 30 Mcg, IM, 12 yrs and above ([employer]) 09/28/2022 TDAP (age 10 and older)([employer]) 09/04/2020 [...] money to buy more. Never true 09/12/19 Within the past 12 months, t he [...] No 09/12/2023 Does the household have a re gular [...] encounter Miscellaneous Notes * Telephone Encounter - Robert Smith [facility] - 03/05/2024 11:45 AM ESTSigned Prescriptions: Disp Refills SUMAtriptan Succinate 100 MG Oral Tablet (*27 Tab*3 Sig: One pill by mouth at onset of migraine. May repeat in 2 hours but not more than 2 tablets in 24 hoursAuthorizing Provider: DEMETRIA SANTOS User: ROBERT SMITH * Telephone Encounter - Amelia Townsend payment poster - 03/05/2024 10:34 AM EST Pending Prescriptions: Disp Refills SUMAtriptan Succinate 100 MG Oral Tablet (*27 Tab*3 Sig: One pill by mouth at onset of migraine. May repeat in 2 hours but not more than 2 tablets in 24 hours * Telephone Encounter - Amelia Townsend payment poster - 03/05/2024 10:32 AM EST Did you pend patient's preferred pharmacy and medication before forwarding?yes Pharmacy: [facility] [id number] [place] [address] Pending Prescriptions: Disp Refills SUMAtriptan Succinate 100 MG Oral Tablet *27 Tab*3 Sig: One pill by mouth at onset of migraine. May repeat in 2 hours but not more than 2 tablets in 24 hours Last Visit: 09/26/2023 (in office), Visit date not found (telemedicine) Next Visit: Visit date not found If no future appointments scheduled, and last appointment is greater than a year ago, please schedule patient for a follow-up appointment Last date the medication was ordered: 04/03/2023 Is this request for a controlled substance?No Urine Drug Screen:No results found for this or any previous visit. Patient Phone Numbers Labs: Lab Results Component Value Date/Time CREAT 0.6 05/01/2023 09:40 AM CREAT 0.6 10/17/2019 08:43 AM POTASSIUM 4.1 05/01/2023 09:40 AM POTASSIUM 5.1 10/17/2019 08:43 AM POTASSIUM 4.2 11/22/1995 01:45 PM TSH 0.81 11/12/2021 08:55 AM TSH 1.03 04/04/2019 11:39 AM TSH 1.05 11/22/1995 01:45 PM LDL 76 10/12/2022 09:15 AM LDL 83 10/17/2019 08:43 AM LDL NOT APPLICABLE 10/17/2019 08:43 AM ALT 50 (H) 05/18/2023 11:14 AM documented in this encounter Plan of Treatment Upcoming Encounters Date Type Department Care Team (Late st Contact Info) Description 09/26/2024 9:15 AM EDT Imaging Radiology [facility] [address] [facility] [address] [facility] [place] [address] Scheduled Procedures Name Priority Associated Diagnoses Date/Ti [...] as of this encounter Visit Diagnoses Diagnosis Migraine with aura and without status migrainosus, not intractable Migraine with aura, without mention of intractable migraine without mention of status migrainosus documented in this encounter Care Teams It Applications Analyst Relationship Specialty Start Date End Date Demetria Santos DO [address] [place] [address] PCP - General Family Medicine 08/03/18 documented as of this encounter
--- OUTSIDE RECORDS SUMMARY | 2024-07-29 11:13 | External Medical Summary | Summary of Care ---
Author Name Unknown Organization [facility] Address [address] [place] [place] [address] Phone [phone] Care Team Providers Care Project Manager Process Development Name Role Phone Demetria Santos DO Primary Care Provider [phone] Reason for Visit * Reason Comments eRx-Medication Refill Encounter Details Date Type Department Care Team (Late st Contact Info) Description 04/24/2024 Refill Family Practice [facility] [address] [place] [phone] Demetria Santos DO [address] [place] [phone] Depression, major, in remission (HCC) Allergies Active Allergy Reactions Criticality Noted Date Comments Influenza Virus Vacc Hives 12/06/2010 documented as of this encounter (statuses as of 04/25/2024) Medications Doxylamine Succinate (Sleep) 25 MG Oral [...] 24 Active Naproxen 500 MG Oral Tablet (Naprosyn)Indica tions:Chronic midline low back pain without sciatica One pill by mouth twice a day with food. 180 Tablet 1 11/02/19 24 Active Lisinopril 40 MG Oral TabletIndication s:HTN, [...] weeks. 28 g 1 03/30/19 25 Active Azithromycin 250 MG Oral Tablet (Zithromax)Indic ations:LRTI (lower respiratory tract infection),Fever , unspecified fever cause Take 2 tabs by mouth on the first day, then 1 tab daily on days two through five 6 Tablet 04/24/19 25 025 Active predniSONE 20 MG Oral Tablet (Deltasone)Indic ations:LRTI (lower respiratory tract infection),Fever , unspecified fever cause Take 1 Tablet by mouth in the morning for 5 days. 5 Tablet 04/24/19 25 025 Active Escitalopram Oxalate 10 MG Oral Tablet (Lexapro)Indicat ions:Depression, major, in remission (HCC) TAKE 1 TABLET BY MOUTH ONCE DAILY IN THE MORNING 30 Tablet 5 04/25/19 25 Active Escitalopram Oxalate 10 MG Oral Tablet (Lexapro)Indicat ions:Depression, major, in remission (HCC) Take 1 Tablet by mouth in the morning. 90 Tablet 3 04/03/19 24 025 Discontinued Hospital, Clinic, or Other Facility Administered Medication Ordered Dose Route Frequency Start Date End Date Status Denosumab (Prolia) subcut inj 60 mgIndications:Senile osteoporosis 60 mg SC [id number] 05/03/2023 04/27/2024 Active documented as of this encounter (statuses as of 04/25/2024) Active Problems Problem Noted Date Diagnosed Date PVC (premature ventricular contraction) 04/04/19 20 Allergy to influenza vaccine 03/16/2017 Other seborrheic keratosis 04/22/2013 Neoplasm of uncertain behavior of skin 4 Backache 03/02/2009 Depression, major, in remission Overview (03/02/2009): failed celexa Migraine with aura Overview (03/02/2009): 10+ per year Esophageal reflux documented as of this encounter (statuses as of 04/25/2024) Resolved Problems Problem Noted Date Diagnosed Date [...] as of this encounter (statuses as of 04/25/2024) Immunizations Name Administration Dates Next Due COVID-19 mRNA, LNP-s, No Pre serve, 2-Dose Series (Klarna) 06/26/2020,06/05/2020 COVID-19, LNP-s, No Preserve , Filiberto-sucrose, [...] encounter Miscellaneous Notes * Telephone Encounter - Alba Garibay [facility] - 04/25/2024 10:38 AM ESTSigned Prescriptions: Disp Refills Escitalopram Oxalate 10 MG Oral Tablet (Le*30 Tab*5 Sig: TAKE 1 TABLET BY MOUTH ONCE DAILY IN THE MORNINGAuthorizing Provider: DEMETRIA SANTOS User: ALBA GARIBAY documented in this encounter Plan of Treatment Upcoming Encounters Date Type Department Care Team (Late st Contact Info) Description 09/26/2024 9:15 AM EDT Imaging Radiology [address] [place] [phone] [...] as of this encounter Visit Diagnoses Diagnosis Depression, major, in remission (HCC) Major depressive disorder, single episode, in partial or unspecified remission documented in this encounter Care Teams Project Manager Process Development Relationship Specialty Start Date End Date Demetria Santos DO [address] [place] [id number] PCP - General Family Medicine 08/03/18 documented as of this encounter
--- OUTSIDE RECORDS SUMMARY | 2024-07-29 11:13 | External Medical Summary ---
Author Name Unknown Address Unknown Organization K01:[facility] - [address] [place] [address] Laboratory Report Ordering Provider Test Date Status VALE TO 05/01/2024 10:37:25 Final Observation Date Value Abnormality Reference (Units ) Status MYCODE SPECIMEN-SST 05/01/2024 10:37:25 Freezing of extracted DNA, whole blood and/or serum. Final Performing Location [facility] - [address] [place] [address]
[2024-07-29] MEDS: OPTIRAY 320 100ml IV ONE (11:20)
--- NOTE | 2024-07-29 11:39 | CT Scan Report ---
CT SCAN OF THE ABDOMEN AND PELVIS WITH IV CONTRAST CLINICAL HISTORY: Abdominal pain. COMPARISON STUDY: Right upper quadrant ultrasound July 23, 2007. TECHNIQUE: Following the IV administration of 94 cc of Optiray 320, CT scan of the abdomen and pelvi s is performed from the lung bases to the proximal femora. Images are reviewed in the axial, sagittal , and coronal planes. IV contrast was administered without complication. A dose lowering technique wa s utilized adhering to the principles of ALARA. CT DOSE: 648.17 mGy.cm FINDINGS: Visualized portions of the lung bases are unremarkable. There is no pneumatosis, free air o r portal venous gas. Severe hepatic steatosis is noted. 1.4 cm shunt within the left hepatic lobe is noted. There are no hepatic lesions. Capsular retraction within segment 5 of the liver. Spleen, adren al glands and kidneys are unremarkable. There is no hydronephrosis. There is no evidence for a bowel obstruction status post Gatito-en-Y gastric bypass. Cecal wall thickening is noted. The wall appears hy podense. A mass is considered unlikely. There is minimal peripancreatic stranding. No pancreatic flui d collections are present. Probable pancreas divisum. The pancreas enhances homogeneously. There is n o biliary ductal dilatation. There are multiple small gallstones within the gallbladder. Hyperdense m aterial within the gallbladder may represent sludge. There is no ascites. No lymphadenopathy is prese nt. Major vasculature is patent. IMPRESSION: 1. Subtle peripancreatic stranding. This favors acute pancreatitis. No evidence for gland necrosis. N o biliary or pancreatic ductal dilatation. Probable pancreas divisum. 2. Cholelithiasis. 3. Severe hepatic steatosis. 4. No evidence for a bowel obstruction status post Gatito-en-Y gastric bypass. 5. Cecal wall thickening. This is likely due to underdistention. However, if not recently performed, colonoscopy is recommended to exclude the less likely possibility of a mucosal abnormality. ACT 112: Negative or not required by law. Electronically signed by: Benji Duron M.D. 07/29/2024 11:37 AM
[2024-07-29] MEDS: SODIUM CHLORIDE 0.9% 1,000 ML IV SCH (12:26)
[2024-07-29] MEDS: POTASSIUM CHLORIDE / WTR 10 MEQ/100 ML PLCT IV SCH (12:46)
--- NOTE | 2024-07-29 13:15 | History & Physical Report ---
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 #Abdominal Pain #Acute pancreatitis, suspected alcohol related admit to medical --CT a/p: with concern for pancreatitis, evidence of gallstones/sludge, no evidence of CBD dilatation, possible pancreatic divisum, severe hepatic steatosis bowel rest, IVF NSS + KCL, pain control obtain MRCP due to possible pancreatic divisum, elevated lfts in setting of obvious stones consult GI encourage alcohol cessation, pt reports after this episode she wishes to talk to Dr. Barker regarding program continue famotidine for now #Elevated LFTS has been elevated in OP setting since 2022 suspect in setting of severe hepatic steatosis, alcohol use GI consulted obtain acute hep panel in a.m. #Alcohol abuse pt reports 6 glasses of wine daily for many years and it has been a long time she has gone without no hx of withdrawal but again has never been with out AWSS protocol, gabapentin taper, prn IV ativan IV thiamine/folic acid daily starting now encourage cessation/possible rehab post hospitalization #Hx of suzy-en-Y bypass 25 yrs ago #HTN: controlled, stable, continue amlodipine and lisinopril with parameters #Cecal thickening: seen on CT abd/pelvis: possible under distension, pt with hx of c scope in 2010 and 2022 unremarkable, pt reports change in bowel habits and 8-10lb weight loss since March, would recommend report outpt c scope DVT ppx: SQ Lovenox FULL CODE PCP: [facility] Dispo: admit to med/surg Pt was seen and examined in collaboration with Dr. Grayson, please see addendum I spent a total of 61 minutes coordinating, documenting and providing care for this patient excluding time spent in the performance of separately billed services or time spent by another provider/QHP. History of Present Illness Chief Complaint: Abd pain x few weeks. Primary Care Provider: Ariella Starks, DO This is a 64-year-old female with significant past medical history of Suzy-en-Y bypass 20 years ago, alcohol abuse, GERD, history of migraine and depression who presents to ED secondary to abdominal pain for a few weeks. Hx obtained from Pt, ed provider and outpt chart review. Sx came on gradually with reported LUQ and epigastric abd pain. Pain has been constant, waxes and wanes in severity, worse with movement, better with rest and has never had this before. Currently her pain is a 3/10. She saw her PCP on 07/26 and was started on famotidine bid and sucralfate. This has not improved her sx. Her had lab work done that day as well. She was called this morning with the results and due to her sx persisting she was referred to the ED for further evaluation. Her op lab work was reviewed and revealed and elevated lipase at 433, elevated AST 109, ALT 140, t bili 0.7. She reports early satiety, poor appetite, food intolerance. She states eating does not make pain worse. She has been tolerating liquids and yogurt only. She states she drinks 6 glasses of wine a day. Her last drink was last night. She has not gone more than 6 hrs with out an alcoholic drink. She has done this for several years. She knows she needs to quit. The past few days she is down to 3 drink a day due to her abd pain. SHe reports some nausea and dry heaves. She denies f/c/s, chest pain, sob, dizziness, lightheaded, hematemesis, dark tary stool, vomiting, dysuria, increased urg/freq with urination or melena. She most recently was treated with a course of oral bactrim for a E. Coli UTI and her sx have since resolved. Allergies Allergy/AdvReac Type Severity Reaction Status Date / Time [id number] Allergy Unknown Uncoded 03/19/03 04:06 Home Medications Medication Instructions Recorded Confirmed Type amlodipine 2.5 mg tablet 2.5 mg PO QAM 07/29/24 07/29/24 History escitalopram oxalate 10 mg tablet 10 mg PO DAILY 07/29/24 07/29/24 History famotidine 40 mg tablet 40 mg PO BID 07/29/24 07/29/24 History lisinopril 40 mg tablet 40 mg PO QAM 07/29/24 07/29/24 History sucralfate 1 gram tablet 1 g PO QID 07/29/24 07/29/24 History sumatriptan succinate 100 mg tablet 100 mg PO DIRECTED PRN HEADACHES 07/29/24 07/29/24 History Past Med/Surg History Problem List (Updated 07/29/24 @ 13:31 by Mary Velasco PA-C) Elevated LFTs Alcohol abuse Abdominal pain Pancreatitis (Acute) Medical History HTN (hypertension) Depression Migraine GERD (gastroesophageal reflux disease) Surgical History History of Suzy-en-Y gastric bypass Family History Mother Ovarian cancer Social History Smoking Status: Never smoker Preferred Language: Danish Feels Safe at Home: Yes Review of Systems Review of Systems: All systems reviewed & are unremarkable except as noted in HPI & below Physical Exam Physical Exam: Constitutional: WD/WN, vitals as above, NAD, sitting up in bed, pleasant, conversing easily Head: Normocephalic, Atraumatic Eyes: PERRL, conjunctivae normal, anicteric sclerae ENMT: external ear and nose normal, oropharynx normal Neck: trachea midline, no thyromegaly normal visual inspection Respiratory: normal respiratory effort, lungs clear to auscultation, no wheeze, rales, rhonchi. Normal insp/exp effort, no accessory muscle use Cardiovascular: RRR, no murmur, no edema Chest: normal inspection of chest Abdomen: normal bowel sounds, soft, TTP LUQ, no rebound, no hepatosplenomegaly Musculoskeletal: no cyanosis or clubbing, extremities motor strength 5/5 Skin: no rashes, warm and dry normal turgor Neurologic: , no face palsy, no dysarthria CN's II-XI intact bilaterally and moves all extremities Psychiatric: A+Ox3, euthymic affect Results & Data Results & Data Vital Signs (Past 12 Hours) Vital Signs Temp Pulse Pulse Resp BP BP Pulse Ox 07/29/24 11:02 90 16 122/80 98 07/29/24 10:32 85 07/29/24 10:30 98 07/29/24 09:42 36.7 C 115 H 18 120/87 99 O2 Del Method 07/29/24 11:02 Room Air 07/29/24 10:32 07/29/24 10:30 Room Air 07/29/24 09:42 Room Air Laboratory Results I have independently reviewed and interpreted patient's admitting labs including CBC, CMP, lipase Diagnostic Findings Abdomen/Pelvis CT 07/29/24 09:46 CT SCAN OF THE ABDOMEN AND PELVIS WITH IV CONTRAST CLINICAL HISTORY: Abdominal pain. COMPARISON STUDY: Right upper quadrant ultrasound July 23, 2007. TECHNIQUE: Following the IV administration of 94 cc of Optiray 320, CT scan of the abdomen and pelvis is performed from the lung bases to the proximal femora. Images are reviewed in the axial, sagittal, and coronal planes. IV contrast was administered without complication. A dose lowering technique was utilized adhering to the principles of ALARA. CT DOSE: 648.17 mGy.cm FINDINGS: Visualized portions of the lung bases are unremarkable. There is no pneumatosis, free air or portal venous gas. Severe hepatic steatosis is noted. 1.4 cm shunt within the left hepatic lobe is noted. There are no hepatic lesions. Capsular retraction within segment 5 of the liver. Spleen, adrenal glands and kidneys are unremarkable. There is no hydronephrosis. There is no evidence for a bowel obstruction status post Suzy-en-Y gastric bypass. Cecal wall thickening is noted. The wall appears hypodense. A mass is considered unlikely. There is minimal peripancreatic stranding. No pancreatic fluid collec tions are present. Probable pancreas divisum. The pancreas enhances homogeneously. There is no biliary ductal dilatation. There are multiple small gallstones within the gallbladder. Hyperdense material within the gallbladder may represent sludge. There is no ascites. No lymphadenopathy is present. Major vasculature is patent. IMPRESSION: 1. Subtle peripancreatic stranding. This favors acute pancreatitis. No evidence for gland necrosis. No biliary or pancreatic ductal dilatation. Probable pancreas divisum. 2. Cholelithiasis. 3. Severe hepatic steatosis. 4. No evidence for a bowel obstruction status post Suzy-en-Y gastric bypass. 5. Cecal wall thickening. This is likely due to underdistention. However, if not recently performed, colonoscopy is recommended to exclude the less likely possibility of a mucosal abnormality. ACT 112: Negative or not required by law. Electronically signed by: Benji Duron M.D. 07/29/2024 11:37 AM Medications Administered Medication List Sodium Chloride (Nss) 1,000 mls @ 125 mls/hr IV .Q8H COLLIN Stop: 08/01/24 12:14 Last Admin: 07/29/24 12:26 Dose: 125 mls/hr Documented By: LUIS Potassium Chloride (K Go / Wtr) 10 meq in 100 mls @ 100 mls/hr IV Q1H COLLIN Stop: 07/29/24 14:29 Last Admin: 07/29/24 12:46 Dose: 100 mls/hr Documented By: LUIS Discontinued Medications Sodium Chloride (Nss) 1,000 mls @ 999 mls/hr IV .Q1H1M ONE Stop: 07/29/24 10:45 Last Infusion: 07/29/24 11:20 Dose: Infused Documented By: Admin: 07/29/24 10:20 Dose: 999 mls/hr Documented By: OMAR Ioversol (Optiray 320 100ml) 94 ml IV ONCE ONE Stop: 07/29/24 11:20 Last Admin: 07/29/24 11:20 Dose: 94 ml Documented By: CARLYLE Ketorolac Tromethamine (Ketorolac Tromethamine 15 Mg/Ml Vial) 15 mg IV NOW STA Stop: 07/29/24 09:46 Last Admin: 07/29/24 10:23 Dose: 15 mg Documented By: OMAR Ondansetron HCl (Ondansetron Inj 2 Mg/Ml 2 Ml Vial) 4 mg IV NOW STA Stop: 07/29/24 09:46 Last Admin: 07/29/24 10:20 Dose: 4 mg Documented By: OMAR Code Status & VTE Plan Code Status FULL CODE VTE Prophylaxis Plan VTE Prophylaxis will be ordered: Yes Supervising Physician Co-Signing Physician Notes I have seen and discussed the case with the collaborating advanced practitioner. I agree with the above H&P. I have reviewed and confirmed the patients medical history, the findings on physical examination, and the patients diagnosis and treatment plan with Krista AGUILAR and agree with the information documented. In short, Ms. Matos is a 64 oy woman with history of AUD, htn, depression, and ongoing epigastric pain being admitted for pancreatitis as well as eval of transaminitis. Patient with persistent baseline elevation iso severe hepatic steatosis. ALP uptrending. Given cholelithiasis and pancreatitis, will obtain MRCP and r/o gallbladder process with alternative differential likely being related to etoh use. Patient reports over 13 years of daily drinking, 5-6 glasses of white wine. She states she has not gone over 6 hours without drinking. She has tried to cut down but reports being unsuccessful. She notes this pain has been on going for about a week. She notes 10 lbs weightloss since beginning of the year and bowel habit changes. Reports poor appeitite overall Exam is notable for a pleasant woman, no distress with RRR and lungs CTAB, abdomen with mild epigastric tenderness to palpation #Acute pancreatitis #Transaminitis #Cholelithiasis chronically elevated lfts, however elevated from baseline given lfts distribution, will obtain mrcp NPO for now with plans to ADAT IVF #AUD has resources from Dr. Barker for individual therapy agreed to gabapentin taper counselled at bedside, seemingly receptive offered more resources, declined at this time rest as above I spent a total of 25 minutes coordinating, documenting, and providing care for this patient excluding time spent in the performance of separately billed servi jose cruz. All of the aforementioned completed outside of collaborating with the assigned advanced practitioner for a full treatment plan. I have reviewed the advanced practitioner's documentation, and I agree with, and take responsibility for the plan of care (2) Pancreatitis Acute pancreatitis complication: unspecified Chronicity: acute Pancreatitis type: unspecified pancreatitis type Qualified Code(s): K85.90 - Acute pancreatitis without necrosis or infection, unspecified
--- NOTE | 2024-07-29 13:22 | Emergency Department Note ---
History of Present Illness General Chief Complaint: Referred by Doctor Stated Complaint: REFERRED BY DR REYES, R/O PANCREATITIS Time Seen by Provider: 07/29/24 09:45 History of Present Illness Provider Complaint: + abnormal lab Description of abnormal result: Elevated lipase Context: + called for abnormal lab result Associated symptoms: + abdominal pain (1 week) Home Medications Medication Instructions Recorded Confirmed Type amlodipine 2.5 mg tablet 2.5 mg PO QAM 07/29/24 07/29/24 History escitalopram oxalate 10 mg tablet 10 mg PO DAILY 07/29/24 07/29/24 History famotidine 40 mg tablet 40 mg PO BID 07/29/24 07/29/24 History lisinopril 40 mg tablet 40 mg PO QAM 07/29/24 07/29/24 History sucralfate 1 gram tablet 1 g PO QID 07/29/24 07/29/24 History sumatriptan succinate 100 mg tablet 100 mg PO DIRECTED PRN HEADACHES 07/29/24 07/29/24 History Allergies Allergy/AdvReac Type Severity Reaction Status Date / Time [id number] Allergy Unknown Uncoded 03/19/03 04:06 Past Med/Surg History Problem List (Updated 07/29/24 @ 13:22 by Petey Arevalo MD) Pancreatitis (Acute) Medical History HTN (hypertension) Depression Migraine GERD (gastroesophageal reflux disease) Surgical History History of Gatito-en-Y gastric bypass Family History Mother Ovarian cancer Social History Smoking Status: Never smoker Preferred Language: Italian Feels Safe at Home: Yes Physical Exam 2 Vital Signs: Vital Signs - 24 hr 07/29/24 09:42 07/29/24 10:30 07/29/24 10:32 Temperature 36.7 C Temperature Source Temporal Artery Sc an Pulse Rate 115 H 85 Pulse Rate [Apical ] Pulse Rhythm Regular Respiratory Rate 18 Respiratory Effort / Characteristics Respiratory Depth Respiratory Patter n Blood Pressure 120/87 Blood Pressure [Le ft Arm] Blood Pressure Kimberlee n 98 Blood Pressure Kimberlee n [Left Arm] Blood Pressure Pos ition Sitting Blood Pressure Pos ition [Left Arm] Pulse Oximetry 99 98 Oxygen Delivery Me thod Room Air Room Air Sepsis Recent Feve r Within 48 Hours No Sepsis New/Unexpla ined Change in Men margarita Status No Sepsis Action Take n by Nursing No Action Required 07/29/24 11:02 Temperature Temperature Source Pulse Rate Pulse Rate [Apical ] 90 Pulse Rhythm Respiratory Rate 16 Respiratory Effort / Characteristics Non-Labored Sponta neous Respiratory Depth Normal Respiratory Patter n Regular Blood Pressure Blood Pressure [Le ft Arm] 122/80 Blood Pressure Kimberlee n Blood Pressure Kimberlee n [Left Arm] 94 Blood Pressure Pos ition Blood Pressure Pos ition [Left Arm] Semi-fowlers Pulse Oximetry 98 Oxygen Delivery Me thod Room Air Sepsis Recent Feve r Within 48 Hours Sepsis New/Unexpla ined Change in Men margarita Status Sepsis Action Take n by Nursing Physical Exam: Physical Exam GENERAL: oriented to person, place, and time. appears well-developed and well- nourished. She does not appear distressed. HENT: Exam performed. -Head: Normocephalic and atraumatic. -Right Ear: External ear normal. No mastoid erythema -Left Ear: External ear normal. No mastoid erythema -Mouth/Throat: The oropharynx is clear and moist. No trismus in the jaw. No dental abscesses or uvula swelling. No oropharyngeal exudate or tonsillar abscesses. EYES: Conjunctivae and EOM are normal.Right eye exhibits no discharge. Left eye exhibits no discharge. No scleral icterus. NECK: Normal range of motion. Neck supple. No JVD present. No tracheal deviation and normal range of motion present. CV: Normal rate, regular rhythm, normal heart sounds and intact distal pulses. There is no peripheral edema. Palpable radial pulses bue. PULM/CHEST: Effort normal and breath sounds normal. No respiratory distress. No stridor. no wheezes.no rales. -Chest Wall: no tenderness to palpation ABD: The abdomen is soft. Bowel sounds are normal. no distension. No mass is present. There is tenderness to palpation of the left upper quadrant. There is no rebound, no guarding, no Peraza's sign and no tenderness at McBurney's point. Rovsig negative MUSC/SKEL: Normal range of motion. There is no peripheral edema, tenderness or deformity. NEURO: Motor and sensation grossly intact. SKIN: Skin is warm and dry. not diaphoretic. PSYCH: normal mood and affect. Behavior is normal. Judgment and thought content normal. Course Course 944: The patient was evaluated in room B11. A complete history and physical exam was performed Cardiac monitoring: An order was placed for continuous cardiac monitoring. The monitor shows a rate of 90 with sinus rhythm interpreted by me 1200: Vital signs stable. Labs show leukopenia of 3.53. Bili was 0.3 total bilirubin 0.7 AST 77 ALT 54 alkaline phosphatase 124 lipase 84. Imaging shows pancreatitis. [facility]. Administered Medications Sodium Chloride (Nss) 1,000 mls @ 125 mls/hr IV .Q8H COLLIN Stop: 08/01/24 12:14 Last Admin: 07/29/24 12:26 Dose: 125 mls/hr Documented By: LUIS Potassium Chloride (K Go / Wtr) 10 meq in 100 mls @ 100 mls/hr IV Q1H COLLIN Stop: 07/29/24 14:29 Last Admin: 07/29/24 12:46 Dose: 100 mls/hr Documented By: LUIS Discontinued Medications Sodium Chloride (Nss) 1,000 mls @ 999 mls/hr IV .Q1H1M ONE Stop: 07/29/24 10:45 Last Infusion: 07/29/24 11:20 Dose: Infused Documented By: Admin: 07/29/24 10:20 Dose: 999 mls/hr Documented By: OMAR Ioversol (Optiray 320 100ml) 94 ml IV ONCE ONE Stop: 07/29/24 11:20 Last Admin: 07/29/24 11:20 Dose: 94 ml Documented By: CARLYLE Ketorolac Tromethamine (Ketorolac Tromethamine 15 Mg/Ml Vial) 15 mg IV NOW STA Stop: 07/29/24 09:46 Last Admin: 07/29/24 10:23 Dose: 15 mg Documented By: OMAR Ondansetron HCl (Ondansetron Inj 2 Mg/Ml 2 Ml Vial) 4 mg IV NOW STA Stop: 07/29/24 09:46 Last Admin: 07/29/24 10:20 Dose: 4 mg Documented By: OMAR Medical Decision Making Laboratory Data Attestation: I reviewed the patient's lab results. 07/29/24 10:20 07/29/24 10:20 Lab Results 07/29/24 Range/Units 10:20 WBC 3.53 L (4.8-10.8) K/ul RBC 4.27 (4.20-5.40) M/uL Hgb 14.8 (12.0-16.0) g/dl Hct 41.5 (37.0-47.0) % MCV 97.2 (80.0-100.0) fL MCH 34.7 H (25.0-34.0) pg MCHC 35.7 (32.0-36.0) g/dL RDW Std Deviation 42.6 (36.4-46.3) fL RDW Coeff of Filiberto 11.9 (11.5-14.5) % Plt Count 197 (130-400) K/uL MPV 9.4 (9.4-12.4) fL Immature Gran % (Auto) 0.6 % Neut % (Auto) 62.8 % Lymph % (Auto) 16.7 % Grayson % (Auto) 17.6 % Eos % (Auto) 2.0 % Baso % (Auto) 0.3 % Neut # (Auto) 2.22 (1.40-6.50) K/uL Lymph # (Auto) 0.59 L (1.20-3.40) K/uL Grayson # (Auto) 0.62 H (0.11-0.59) K/uL Eos # (Auto) 0.07 (0.00-0.50) K/uL Baso # (Auto) 0.01 (0.00-0.20) K/uL Immature Gran # (Auto) 0.02 (0.01-0.20) K/uL PT 9.9 (9.0-12.0) Seconds INR 0.9 (0.9-1.1) APTT 28 (21-31) Seconds PTT Ratio 1.0 Sodium 137 (136-145) mmol/L Potassium 3.3 L (3.5-5.1) mmol/L Chloride 101 (98-107) mmol/L Carbon Dioxide 27 (21-32) mmol/L Anion Gap 9 (3-11) BUN 10 (6-23) mg/dl Creatinine 0.52 L (0.6-1.2) mg/dl Est Cr Clr Drug Dosing 79.5 ml/min eGFR 104.33 BUN/Creatinine Ratio 19.2 (10-20) Glucose 75 (70-99(Fasting)) mg/dl Calcium 9.6 (8.6-10.3) mg/dl Total Bilirubin 0.7 (0.2-1.0) mg/dl Direct Bilirubin 0.3 H (0-0.2) mg/dl AST 77 H (13-39) U/L ALT 54 H (7-52) U/L Alkaline Phosphatase 124 H (34-104) U/L Total Protein 6.5 (6.0-8.3) gm/dl Albumin 3.9 (3.4-5.0) gm/dl Lipase 84 H (11-82) U/L Imaging Data Radiologist's Impression: Abdomen/Pelvis CT 07/29/24 09:46 CT SCAN OF THE ABDOMEN AND PELVIS WITH IV CONTRAST CLINICAL HISTORY: Abdominal pain. COMPARISON STUDY: Right upper quadrant ultrasound July 23, 2007. TECHNIQUE: Following the IV administration of 94 cc of Optiray 320, CT scan of the abdomen and pelvis is performed from the lung bases to the proximal femora. Images are reviewed in the axial, sagittal, and coronal planes. IV contrast was administered without complication. A dose lowering technique was utilized adhering to the principles of ALARA. CT DOSE: 648.17 mGy.cm FINDINGS: Visualized portions of the lung bases are unremarkable. There is no pneumatosis, free air or portal venous gas. Severe hepatic steatosis is noted. 1.4 cm shunt within the left hepatic lobe is noted. There are no hepatic lesions. Capsular retraction within segment 5 of the liver. Spleen, adrenal glands and kidneys are unremarkable. There is no hydronephrosis. There is no evidence for a bowel obstruction status post Gatito-en-Y gastric bypass. Cecal wall thickening is noted. The wall appears hypodense. A mass is considered unlikely. There is minimal peripancreatic stranding. No pancreatic fluid collections are present. Probable pancreas divisum. The pancreas enhances homogeneously. There is no biliary ductal dilatation. There are multiple small gallstones within the gallbladder. Hyperdense material within the gallbladder may represent sludge. There is no ascites. No lymphadenopathy is present. Major vasculature is patent. IMPRESSION: 1. Subtle peripancreatic stranding. This favors acute pancreatitis. No evidence for gland necrosis. No biliary or pancreatic ductal dilatation. Probable pancreas divisum. 2. Cholelithiasis. 3. Severe hepatic steatosis. 4. No evidence for a bowel obstruction status post Gatito-en-Y gastric bypass. 5. Cecal wall thickening. This is likely due to underdistention. However, if not recently performed, colonoscopy is recommended to exclude the less likely possibility of a mucosal abnormality. ACT 112: Negative or not required by law. Electronically signed by: Benji Duron M.D. 07/29/2024 11:37 AM [facility] Narrative 0945: The patient was evaluated in room B11. A complete history and physical exam was performed Cardiac monitoring: An order was placed for continuous cardiac monitoring. The monitor shows a rate of 90 with sinus rhythm interpreted by wy 1200: Vital signs stable. Labs show leukopenia of 3.53. Bili was 0.3 total bilirubin 0.7 AST 77 ALT 54 alkaline phosphatase 124 lipase 84. Imaging shows pancreatitis. [facility] Impression & Plan Pancreatitis Discharge Plan Visit Data Chief Complaint: Referred by Doctor Stated Complaint: REFERRED BY DR REYES, R/O PANCREATITIS ED Provider: Petey Arevalo Discharge Problem: Pancreatitis Patient Disposition: Admitted As Inpatient Condition: Fair Forms Stand Alone Forms: NsGene Prescriptions Prescriptions: No Action sumatriptan succinate 100 mg tablet 100 mg PO DIRECTED PRN (Reason: HEADACHES) sucralfate 1 gram tablet 1 g PO QID famotidine 40 mg tablet 40 mg PO BID amlodipine 2.5 mg tablet 2.5 mg PO QAM lisinopril 40 mg tablet 40 mg PO QAM escitalopram oxalate 10 mg tablet 10 mg PO DAILY Referrals Referrals: Ariella Starks DO [Primary Care Provider] - Discharge Problem: Pancreatitis Qualifiers: Chronicity: acute Pancreatitis type: unspecified pancreatitis type Acute pancreatitis complication: unspecified Qualified Code(s): K85.90 - Acute pancreatitis without necrosis or infection, unspecified
--- NOTE | 2024-07-29 14:42 | Magnetic Resonance Report ---
MR MRCP HISTORY: 64 years-old Female pancreatitis, r/o bile duct, pancreatic divisum acute pancreatitis COMPARISON: CT abdomen and pelvis of same day TECHNIQUE: MRCP was obtained without IV contrast utilizing institutional protocol. FINDINGS: Study is mildly motion degraded. Right hemidiaphragmatic elevation. Unremarkable spleen, and adrenal glands. Hepatomegaly with hepatic status is. The liver measures up to 20 cm in length. Mild nonspecif ic bilateral perinephric stranding without hydronephrosis. No lymphadenopathy or aortic aneurysm. Mod erate colonic fecal retention. Unremarkable soft tissues and osseous structures. Mildly contracted gallbladder with cholelithiasis. The common bile duct measures 5.4 mm and demonstra ankit tapered narrowing within the mid to distal portions. No choledocholithiasis identified. Pancreati c duct measures up to 4 mm. There is a mild pancreatic ductal irregularity and narrowing noted within the head and neck without obstructing stone or lesion. There are a few T2 hyperintense foci of the p ancreas measuring up to 9 mm suggestive of sidebranch IPMN's. Note is made of pancreatic divisum. The re is subtle interstitial and peripancreatic inflammatory stranding. No acute pancreatic fluid collec tion. IMPRESSION: 1. Cholelithiasis without evidence of acute cholecystitis, biliary ductal dilation or choledocholithi asis. 2. Mild acute pancreatitis without acute peripancreatic fluid collection. 3. Pancreatic divisum. 4. The pancreatic duct measures up to 4 mm and there is irregularity with areas of [id number] n arrowing at the level of the head and neck. 5. 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 Summary of Fuk[place]oka (Beth) Criteria for IPMN Surveillance "High-risk stigmata": 1) obstructive jaundice in a patient with cystic lesion of the head of the panc reas, 2) enhancing mural nodule > or = 5 mm, 3) main pancreatic duct > or = 10 mm. * Consider surgery "Worrisome features": Clinical: pancreatitis; Imagin) cyst > or = 3 cm, 2) enhancing mural nodule < 5 mm, 3) thickened/enhancing cyst roberts, 4) main duct size 5-9 mm, 5) abrupt change in caliber of pancreatic duct with distal pancreatic atrophy, 6) lymphadenopathy, 7) increased serum level of CA 19 -9, 8) cyst growth rate > or = 5 mm in 2 years. * Endoscopic ultrasound (EUS) Surveillance if no "high-risk stigmata" or "worrisome features": * Largest cyst < 1 cm: CT or MRI/MRCP in 6 months, then every 2 years if no change. * Largest cyst 1-2 cm: CT or MRI/MRCP in 6 months x 1 year, yearly x 2 years, then lengthen interval up to 2 years if no change. * Largest cyst 2-3 cm: Endoscopic ultrasound (EUS) in 3-6 months, then lengthen interval up to 1 yea r, alternating MRI with EUS as appropriate. Consider surgery in young, fit patients with need for pro longed surveillance. * Largest cyst > 3 cm: Close surveillance alternating MRI with EUS every 3-6 months. Strongly consid er surgery in young, fit patients. Beth M, Domingo-alfonso Adams C, Lorrie T, et al. Revisions of international consensus Fuk[place] g uidelines for the management of IPMN of the pancreas. Pancreatology. 2017; 17:738-753. ACT 112: Negative or not required by law. The above report was generated using voice recognition software. It may contain grammatical, syntax o r spelling errors. Electronically signed by: Nando Lal M.D. 07/29/2024 2:40 PM
[2024-07-29] MEDS ORDERED: HYDROmorphone INJ 0.5 MG/0.5 ML SYR IV PRN (15:52)
[2024-07-29] MEDS ORDERED: ONDANSETRON INJ 2 MG/ML 2 ML VIAL IV PRN (15:52)
[2024-07-29] MEDS ORDERED: NICOTINE POLACRILEX 2 MG GUM MT PRN (15:52)
[2024-07-29] MEDS ORDERED: GABAPENTIN 1200MG ALCOHOL WITHDRAWAL LOAD PO STA (15:52)
[2024-07-29] MEDS ORDERED: ACETAMINOPHEN 1,000 MG/100 ML VIAL IV PRN (15:52)
[2024-07-29] MEDS ORDERED: LORazepam 2 MG/1 ML VIAL IV PRN (15:52)
[2024-07-29] MEDS: THIAMINE HCL 100 MG in SYRINGE 9 ML IV SCH (16:32)
[2024-07-29] MEDS: GABAPENTIN 600 MG TAB PO ONE (16:33)
--- NOTE | 2024-07-29 16:33 | Gastrointestinal Consultation ---
Date of Consultation July 29, 2024 Assessment & Plan (1) Alcohol abuse: Patient aware of alcohol problems. She is working to abstain. Drinking up to current admission. Maybe up to 6 glasses of wine per evening. (2) Pancreatitis: Possible pancreatitis although lipase in 84 does not reach levels seen with acute pancreatitis. Pancreatic changes seen on imaging could be chronic. She does have a possible IPMN and outpatient EUS would be appropriate. She also may have chronic changes in the pancreas from alcohol i.e. chronic pancreatitis. She plays letters been decreased appetite and weight loss over the last 6 months. Check a fecal elastase exclude pancreatic insufficiency (3) Abdominal pain: Abdominal pain is localized to the left upper quadrant. Patient has a history of gastric bypass and NSAID use daily. Concerned about gastric pouch ulceration or obstruction obstruction. (4) Weight loss: Plan Patients symptoms may be related to pancreatitis but are not typical given that she has had issues stemming back as far as a year with weight loss and changes in appetite. - treat as pancreatitis with IVF, NPO, and pain control. - will plan to do an EGD tomorrow to assess her pouch. - check fecal elastase. - start protonix 40mg once daily. - Will need set up for EUS as outpatient to further evaluate IPMN/pancreatic duct findings. Supervising Physician Co-Signing Physician Notes See notes above. Patient has a history of gastric bypass and takes NSAIDs. Her left upper quadrant pain poor appetite weight loss all could be related to ulceration of her pouch and/or stenosis. Elevated lipase at 84 can occur with intestinal ulceration. Potentially also because some peripancreatic inflammation changes. At this point I think she does need an EGD. Further workup for the pancreatic abnormalities including outpatient EUS recommended. With weight loss exclude pancreatic insufficiency. Patient does need to abstain from alcohol she is aware of this and is working on it states he is to get rid of all alcohol at home at patient's request. EGD tomorrow History of Present Illness Reason for Consultation: acute pancreatitis Requesting Physician: Dee Grayson MD Attending Physician: Dee Grayson MD History of Present Illness Patient is a 64 year old female with significant past medical history of Gatito-en-Y bypass 25 years ago, alcohol abuse, GERD, history of migraine and depression who presents to ED today secondary to abdominal pain that she has had for a few weeks. She had initially seen her pcp thinking it was an ulcer as she does have history of chronic nsaid use, but saw no difference with PPI or carafate. She also reports to changes in appetite over the past year. Finds she is unable to eat as much as she used to in the past and notes this has been ongoing for the past year. She also reports some issues with diarrhea off and on. She also admits to having lost a significant amount of weight over the past year. She has chronic daily alcohol use and reports as many as 6 glasses of wine a day. Upon work up in the ED, there was concern for pancreatitis. 07/29/24 WBC 3.53, hgb 14.8, hct 41.5, plts 197, INR 1.2, K 3.3, Na 137, T bili 0.7, d bili 0.3, AST 77, ALT 54, alk phos 124, lipase 84. CT 07/29/24 1. Subtle peripancreatic stranding. This favors acute pancreatitis. No evidence for gland necrosis. No biliary or pancreatic ductal dilatation. Probable pancreas divisum. 2. Cholelithiasis. 3. Severe hepatic steatosis. 4. No evidence for a bowel obstruction status post Gatito-en-Y gastric bypass. 5. Cecal wall thickening. This is likely due to underdistention. However, if not recently performed, colonoscopy is recommended to exclude the less likely possibility of a mucosal abnormality. MRCP 07/29/24 1. Cholelithiasis without evidence of acute cholecystitis, biliary ductal dilation or choledocholithiasis. 2. Mild acute pancreatitis without acute peripancreatic fluid collection. 3. Pancreatic divisum. 4. The pancreatic duct measures up to 4 mm and there is irregularity with areas of [id number] narrowing at the level of the head and neck. 5. 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 Allergies Allergy/AdvReac Type Severity Reaction Status Date / Time [id number] Allergy Unknown Uncoded 03/19/03 04:06 Home Medications Medication Instructions Recorded Confirmed Type amlodipine 2.5 mg tablet 2.5 mg PO QAM 07/29/24 07/29/24 History escitalopram oxalate 10 mg tablet 10 mg PO DAILY 07/29/24 07/29/24 History famotidine 40 mg tablet 40 mg PO BID 07/29/24 07/29/24 History lisinopril 40 mg tablet 40 mg PO QAM 07/29/24 07/29/24 History sucralfate 1 gram tablet 1 g PO QID 07/29/24 07/29/24 History sumatriptan succinate 100 mg tablet 100 mg PO DIRECTED PRN HEADACHES 07/29/24 07/29/24 History Patient History Medical History HTN (hypertension) Depression Migraine GERD (gastroesophageal reflux disease) Surgical History History of Gatito-en-Y gastric bypass Family History Mother Ovarian cancer Social History Smoking Status: Never smoker Second Hand Exposure: No; Do You Dip or Chew Tobacco: No; Tobacco Cessation Education Requested by Patient: No Hx Alcohol Use: Yes Alcohol type: wine Hx Substance Use: No Preferred Language: Icelandic Waste [employer] Required: No Beliefs That Will Affect Care: None Current Living Situation: Spouse Other Information That Helps Us Care for You: No Feels Safe at Home: Yes Safety Concerns: Feels Safe At This Time Assistive Devices: None Review of Systems Review of Systems: All systems reviewed & are unremarkable except as noted in HPI & below Physical Exam Constitutional: WD/WN, vitals as above Respiratory: normal respiratory effort, lungs clear to auscultation Cardiovascular: Rate/Rhythm: regular rate and regular rhythm Gastrointestinal (Abdomen): epigastric pain to palpation, no guarding, soft, normal bowel sounds. Psychiatric: Orientation: alert and oriented x 3 Affect: euthymic affect Results & Data Vital Signs (Past 12 Hours) Vital Signs Temp Pulse Pulse Resp BP BP Pulse Ox 07/29/24 15:54 97.3 F L 87 15 141/92 H 96 07/29/24 15:32 98.1 F 88 14 146/81 H 96 07/29/24 14:33 85 18 138/88 98 07/29/24 13:30 138/90 07/29/24 13:00 90 16 97 07/29/24 11:02 90 16 122/80 98 07/29/24 10:32 85 07/29/24 10:30 98 07/29/24 09:42 98.1 F 115 H 18 120/87 99 O2 Del Method 07/29/24 15:54 Room Air 07/29/24 15:32 Room Air 07/29/24 14:33 Room Air 07/29/24 13:30 07/29/24 13:00 Room Air 07/29/24 11:02 Room Air 07/29/24 10:32 07/29/24 10:30 Room Air 07/29/24 09:42 Room Air Coding Level of Care Code 11260 IN/OBS CONSULT LVL 4,60M Diagnoses Alcohol abuse F10.10 Pancreatitis K85.90 Acute pancreatitis complication: unspecified Chronicity: acute Pancreatitis type: unspecified pancreatitis type Abdominal pain R10.9 Weight loss R63.4 (2) Pancreatitis Acute pancreatitis complication: unspecified Chronicity: acute Pancreatitis type: unspecified pancreatitis type Qualified Code(s): K85.90 - Acute pancreatitis without necrosis or infection, unspecified
[2024-07-29] MEDS: NSS + 20MEQ KCL 20 MEQ/1,000 ML BAG IV SCH (16:44)
[2024-07-29] MEDS: FOLIC ACID 1 MG in SYRINGE 9.8 ML IV SCH (16:49)
[2024-07-29] MEDS: ENOXAPARIN INJ 40 MG/0.4 ML SYR SQ SCH (19:42)
[2024-07-29] MEDS: GABAPENTIN 600 MG TAB PO SCH (19:44)
[2024-07-29] MEDS: FAMOTIDINE 40 MG TABLET PO SCH (19:44)
[2024-07-30 07:20] LABS: Basophils # (auto) 0.02 K/uL (0.00-0.20); Basophils % (auto) 0.5 %; Eosinophils # (auto) 0.12 K/uL (0.00-0.50); Hematocrit (blood only) 41.3 % (37.0-47.0); Hemoglobin 14.2 g/dl (12.0-16.0); Immature Granulocytes # (auto) 0.02 K/uL (0.01-0.20); Immature Granulocytes % (auto) 0.5 %; Lymphocytes # (auto) 0.92 K/uL (1.20-3.40); Lymphocytes % (auto) 23.4 %; Mean Corpuscular Hemoglobin 34.8 pg (25.0-34.0); Mean Corpuscular Hgb Conc 34.4 g/dL (32.0-36.0); Mean Corpuscular Volume 101.2 fL (80.0-100.0); Mean Platelet Volume 9.6 fL (9.4-12.4); Monocytes # (auto) 0.57 K/uL (0.11-0.59); Monocytes % (auto) 14.5 %; Neutrophils # (auto) 2.29 K/uL (1.40-6.50); Neutrophils % (auto) 58.1 %; Platelet Count 195 K/uL (130-400); RDW Coefficient of Variation 11.8 % (11.5-14.5); RDW Standard Deviation 43.9 fL (36.4-46.3); Red Blood Count 4.08 M/uL (4.20-5.40); White Blood Count 3.94 K/ul (4.8-10.8)
--- NOTE | 2024-07-30 07:39 | Hospitalist Progress Note ---
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 Abdominal Pain Acute pancreatitis, suspected alcohol related --CT a/p: with concern for pancreatitis, evidence of gallstones/sludge, no evidence of CBD dilatation, possible pancreatic divisum, severe hepatic steatosis --MRCP performed on 07/29 revealing Cholelithiasis without evidence of acute cholecystitis, biliary ductal dilation or choledocholithiasis. Mild acute pancreatitis without acute peripancreatic fluid collection. Pancreatic divisum. The pancreatic duct measures up to 4 mm and there is irregularity with areas of [id number] narrowing at the level of the head and neck. 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 No leukocytosis, Lipase 84 GI Consulted and evaluated pt; appreciate recommendations. EGD performed 07/30 with no source of abdominal pain. Gastric bypass pocket without signs of ulceration. Small hiatal hernia identified. No specimens collected. GI recc OPT EUS for pancreatic duct abnormalities for Intraductal Papillary Mucinous Neoplasm Start clear liquid diet and advance as tolerated. Stop KCL supplement in IVF, resume 0.9 NSS @ 125mL/hour. K+ 4.7 and no N/V. Consider DC IV fluids tomorrow 07/31 pain control; Tylenol and Dilaudid PRN (zero doses utilized thus far) encourage alcohol cessation, pt reports after this episode she wishes to talk to Dr. Barker regarding abstinence from alcohol continue famotidine for now Elevated LFTs has been elevated in OP setting since 2022 suspect in setting of severe hepatic steatosis, alcohol use GI consulted; appreciate their guidance Hepatitis panel drawn and pending Alcohol abuse pt reports 1.5 bottles of wine daily for many years and it has been a long time she has gone without missing any days No history of withdrawl symptoms AWSS protocol, gabapentin taper, prn IV ativan IV thiamine/folic acid daily starting now encourage cessation/possible rehab post hospitalization Receptive to [facility] conversation Hx of suzy-en-Y bypass: 25 yrs ago EGD performed today and HTN: controlled/ chronic and stable continue amlodipine and lisinopril Cecal wall thickening: seen on CT abd/pelvis: possible under distension, pt with hx of c scope in 2010 and 2022 unremarkable pt reports change in bowel habits and 8-10lb weight loss since March, would recommend report outpt c-scope Disposition: PCP: Dr. Lucero AGUILAR ppx: SQ Lovenox Code Status: FULL CODE Likely DC 1-2 days I spent a total of 59 minutes coordinating, documenting and providing care for this patient excluding time spent in the performance of separately billed services or time spent by another provider/QHP. Admission and Anticipated Discharge Date Admission Date: July 29, 2024 Supervising Physician Co-Signing Physician Notes Patient seen and examined at bedside as a follow-up of alcohol associated acute pancreatitis. Patient had been n.p.o. and on IV fluid, reported significant improvement in her belly pain. Patient later in the day underwent EGD with no acute findings. GI on board, recommends outpatient EUS for pancreatic duct abnormalities for IPMN. Plan to resume clear liquid diet after EGD scope. Abbey ochoa LFT. In-depth counseling regarding alcohol cessation and its effect with an pancreatic system has been discussed with patient and her at bedside. On exam: No abdominal tenderness, rest of the examination as above. Total time spent independently: 25 minutes I have seen and examined the patient and have discussed the case with the provider above. I agree with the assessment and plan as stated. Subjective Pt sitting upright in her hospital bed in no apparent distress and does not appear to have withdrawl symptoms at this time. Pt , Ted, at bedside. Reports that her abdominal pain has improved significantly and is isolated to her LUQ. Currently denies tremors, chest pain, SOB, N/V/D, hemoptysis, hematochezia, LEAL, dizziness. Discussed her alcohol use; she reports that she consumes 1.5 bottles of wine daily, without missing any days. She drinks throughout the day, up until midnight most nights. Her last drink was Monday night at midnight (Monday morning) She reports that she has plans for abstaining from alcohol. Has concerns about having withdrawl symptoms. EGD done today; See A/P for further details. Review of Systems Review of Systems: Neuro: (-) Falls, trauma, slurred speech HEENT: (-) LEAL, dizziness, dysphagia, visual or auditory changes CV: (-) CP, palpitations, swelling Resp: (-) SOB GI: (-) appetite changes, N/V/D, bowel changes. (+) LUQ tenderness without radia tion : (-) urinary changes Skin: (-) rashes Psych: (-) anxiety, depression Physical Exam Physical Exam: Neuro: AAOx4, PERRLA, no aphagia, memory changes, CNII-XII grossly intact HEENT: head normocephalic, moist mucus membranes CV: S1/S2, (-) M/G/R, (-) edema, cap refill < 3 seconds Resp: Lungs CTA in all blanc. On RA GI: Abdomen S/ND, some tenderness LUQ without radiation, Ax4 bowel sounds, (-) CVA tenderness Musculoskeletal: 5/5 B/L UE strength, 5/5 B/L LE strength. No gait disturbance Skin: (-) rashes , (-) erythema. Psych: euthymic mood Results & Data Results & Data Vital Signs (Past 12 Hours) Vital Signs Temp Pulse Resp BP Pulse Ox O2 Del Method 07/30/24 04:22 36.7 C 86 16 112/74 97 Room Air 07/29/24 23:55 36.5 C 90 16 129/84 96 Room Air Laboratory Results Short CBC 07/30/24 Range/Units 06:44 WBC 3.94 L (4.8-10.8) K/ul Hgb 14.2 (12.0-16.0) g/dl Hct 41.3 (37.0-47.0) % Plt Count 195 (130-400) K/uL BMP 07/30/24 06:44 Sodium 142 Potassium 4.7 D Chloride 108 H Carbon Dioxide 25 BUN 5 L Creatinine 0.41 L Glucose 65 L Calcium 9.1 Liver Function 07/30/24 Range/Units 06:44 Total Bilirubin 0.5 (0.2-1.0) mg/dl AST 69 H (13-39) U/L ALT 46 (7-52) U/L Alkaline Phosphatase 113 H (34-104) U/L Albumin 3.6 (3.4-5.0) gm/dl (2) Pancreatitis Acute pancreatitis complication: unspecified Chronicity: acute Pancreatitis type: unspecified pancreatitis type Qualified Code(s): K85.90 - Acute pancreatitis without necrosis or infection, unspecified
[2024-07-30] MEDS: ESCITALOPRAM OXALATE 10 MG TAB PO SCH (07:43)
[2024-07-30] MEDS: amLODIPine BESYLATE 5 MG TAB PO SCH (07:44)
[2024-07-30] MEDS: lisinopril 40 MG TAB PO SCH (07:44)
[2024-07-30] MEDS: PANTOprazole 40 MG TAB PO SCH (07:45)
[2024-07-30 08:14] LABS: Albumin Globulin Ratio 1.4 (0.9-2); Albumin Level 3.6 gm/dl (3.4-5.0); BUN Creatinine Ratio 12.2 (10-20); Bilirubin,Total 0.5 mg/dl (0.2-1.0); Calcium 9.1 mg/dl (8.6-10.3); Creatinine Clr Calc Pharmacy 100.9 ml/min; Globulin 2.5 gm/dl (2.5-4.0); Magnesium 2.1 mg/dl (1.7-2.4); Potassium 4.7 mmol/L (3.5-5.1); Total Protein 6.1 gm/dl (6.0-8.3)
[2024-07-30 09:36] LABS: Hep B Surface Ag with confirm Negative (Negative)
[2024-07-30] MEDS: GABAPENTIN 600 MG TAB PO SCH (09:41)
--- NOTE | 2024-07-30 10:08 | History & Physical Bridge Note ---
Date of Service July 30, 2024 History & Physical Bridge Note I have examined the patient, reviewed the History & Physical and in the interval since the performance of the History & Physical I have noted the following changes of clinical significance: no changes noted. She has been NPO. no chest pain, sob, abdominal pain, nausea, vomiting. - will plan to proceed with EGD later today. Supervising Physician Co-Signing Physician Notes For EGD today. Concern for pouch ulceration in this patient with gastric bypass and NSAID use
[2024-07-30 10:30] LABS: Hep C Ab Rflx HepCQuant RNA Negative (Negative)
--- NOTE | 2024-07-30 13:22 | Anesthesiology Consultation ---
Date of Service July 30, 2024 Assessment & Plan Chart Review Chart Review: Acceptable Risk for Surgery and Patient NOT seen in Pre Admission Testing Consults Requested none ASA ASA3 Proposed Anesthesia Anesthesia Type: MAC Risk / Benefits Reviewed With: PT / POA / Parent / Guardian, Accepts Plan and Informed Consent Obtained History Surgery Operation Date: 07/30/24 16:55 Proposed Procedures p Esophagogastroduodenoscopy Dr. Edmar Hyatt MD Height/Weight Height: 5 ft Weight: 52.1 kg Allergies Allergy/AdvReac Type Severity Reaction Status Date / Time [id number] Allergy Unknown Uncoded 03/19/03 04:06 Medications Home Medications Medication Instructions Recorded Confirmed Last Taken amlodipine 2.5 mg tablet 2.5 mg PO QAM 07/29/24 07/29/24 Unknown escitalopram oxalate 10 mg tablet 10 mg PO DAILY 07/29/24 07/29/24 Unknown famotidine 40 mg tablet 40 mg PO BID 07/29/24 07/29/24 Unknown lisinopril 40 mg tablet 40 mg PO QAM 07/29/24 07/29/24 Unknown sucralfate 1 gram tablet 1 g PO QID 07/29/24 07/29/24 Unknown sumatriptan succinate 100 mg tablet 100 mg PO DIRECTED PRN HEADACHES 07/29/24 07/29/24 Unknown Active Medications Generic Name Dose Route Start Last Admin Trade Name Freq PRN Reason Stop Dose Admin Amlodipine Besylate 2.5 mg 07/30/24 09:00 07/30/24 07:44 Amlodipine Besylate 5 Mg Tab PO 08/29/24 08:59 2.5 mg QAM COLLIN Administration Enoxaparin Sodium 40 mg 07/29/24 21:00 07/29/24 19:42 Enoxaparin Inj 40 Mg/0.4 Ml Syr SQ 08/28/24 20:59 Not Given HS COLLIN Escitalopram Oxalate 10 mg 07/30/24 09:00 07/30/24 07:43 Escitalopram Oxalate 10 Mg Tab PO 08/29/24 08:59 10 mg DAILY COLLIN Administration Famotidine 40 mg 07/29/24 21:00 07/30/24 07:44 Famotidine 40 Mg Tablet PO 08/28/24 20:59 40 mg BID COLLIN Administration Gabapentin 600 mg 07/30/24 09:30 07/30/24 09:41 Gabapentin 600 Mg Tab PO 07/31/24 01:31 600 mg Q8H COLLIN Administration Thiamine HCl 100 mg/ Syringe 10 mls @ 2 mls/min 07/29/24 15:52 07/30/24 09:41 IV 08/28/24 15:51 2 mls/min QAM COLLIN Administration Folic Acid 1 mg/ Syringe 10 mls @ 5 mls/min 07/29/24 15:52 07/30/24 07:44 IV 08/28/24 15:51 5 mls/min QAM COLLIN Administration Lisinopril 40 mg 07/30/24 09:00 07/30/24 07:44 Lisinopril 40 Mg Tab PO 08/29/24 08:59 40 mg QAM COLLIN Administration Pantoprazole Sodium 40 mg 07/30/24 09:00 07/30/24 07:45 Pantoprazole 40 Mg Tab PO 08/29/24 08:59 40 mg QAM COLLIN Administration NPO Date Last Intake of Fluids: 07/30/24 Time Last Intake of Fluids: 09:30 Last Intake of Fluids Comment: very little sip with am meds. Otherwise yesterday evening. Date Last Intake of Solids: 07/28/24 Time Last Intake of Solids: 20:00 Last Intake of Solids Comment: toast Past Medical History Medical History HTN (hypertension) Depression Migraine GERD (gastroesophageal reflux disease) Exercise / Class Metabolic Activity II 4-5 Yardwork/Stairs/Walk up hill Past Family History Family History Mother Ovarian cancer Past Surgical History Surgical History History of Gatito-en-Y gastric bypass Past Anesthesia History No Hx of Anesthesia Complications and No Family Hx of Anesthesia Complications History of PONV No Hx of PONV and No Hx of Motion Sickness Social History Smoking Status: Never smoker Do You Dip or Chew Tobacco: No Hx Alcohol Use: Yes Alcohol type: wine alcohol intake frequency: 3 or more drinks per day Alcohol Intake Frequency Comment: 6 drinks a day Hx Substance Use: No substance use type: does not use Physical Exam Vital Signs Last Vital Signs Temp 36.4 C L 07/30/24 12:32 Pulse 85 07/30/24 12:32 Resp 16 07/30/24 12:32 BP 130/88 07/30/24 12:32 Pulse Ox 98 07/30/24 12:32 O2 Del Method Room Air 07/30/24 12:32 ENMT Mouth: no dentition abnormality Thyromental Distance: > or= 3.5 Finger Breadths Mallampati Class: II Neck normal visual inspection Respiratory normal respiratory effort Auscultation: lungs clear to auscultation bilaterally Cardiovascular Rate/Rhythm: regular rate and regular rhythm Psychiatric Orientation: alert Testing Laboratory Results 07/30/24 06:44 07/30/24 06:44 PT 9.9 Seconds (9.0-12.0) 07/29/24 10:20 INR 0.9 (0.9-1.1) 07/29/24 10:20 APTT 28 Seconds (21-31) 07/29/24 10:20
--- NOTE | 2024-07-30 14:17 | GI REPORT ---
[facility] Patient: KENNETH FREITAS : 1960 Sex at : Female Age: 64 Years Procedure: Upper GI endoscopy Date: 07/30/2024 Attending Physician: Drew Hyatt MD Referring MD: Kirk Barker Indications: - Epigastric pain left upper quadrant pain history of gastric bypass with NSAID use. Evaluate for pouch ulceration Medications: - Monitored Anesthesia Care Complications: - No immediate complications. Estimated Blood Loss: - Estimated blood loss: None. Procedure: - The egd scope was introduced through the mouth and advanced to the jejunum. - The upper GI endoscopy was accomplished without difficulty. - The patient tolerated the procedure well. Findings: - A small hiatal hernia was present. - Evidence of a gastric bypass was found in the gastric fundus. This was characterized by healthy appearing mucosa. - Gatito-en-Y Loop appears normal. No ulceration Impression: - Gatito-en-Y Loop appears normal. No ulceration - Small hiatal hernia. - A gastric bypass was found, characterized by healthy appearing mucosa. - No specimens collected. - No source for her epigastric and left upper quadrant pain. Manage is acute pancreatitis her admitting diagnosis. If she continues use NSAIDs I would take a PPI. Patient should abstain from alcohol. Needs an outpatient EUS to follow-up for the pancreatic ductal abnormalities and the possible IPMN. Recommendation: Procedure Code(s): - 32755, Esophagogastroduodenoscopy, flexible, transoral; diagnostic, including collection of specimen(s) by brushing or washing, when performed (separate procedure) Diagnosis Code(s): - K44.9, Diaphragmatic hernia without obstruction or gangrene - Z98.84, Bariatric surgery status CPT(R) - 202 copyright [employer]. All Rights Reserved. The CPT codes, CCI edits and ICD codes generated are intended as suggestions and were generated based on input data. These codes are preliminary and upon green pipefitter review may be revised to meet current compliance and payer requirements. The provider is responsible for the final determination of appropriate codes, and modifiers. Drew Hyatt MD This document has been electronically signed. Note Initiated:07/30/2024 Note Completed:07/30/2024 2:16 PM [id number]
[2024-07-30] MEDS: LIDOCAINE 2% 2 ML VIAL/AMP(20MG/ML) INFIL ONE (14:57)
[2024-07-30] MEDS: PROPOFOL IV EMULSION 10 MG/ML 20 ML VIAL IV ONE (14:57)
--- NOTE | 2024-07-30 15:29 | Anesthesiology Progress Note ---
Date of Service July 30, 2024 Anesthesia Post Procedure Vital Signs Vital Signs: Temp Pulse Pulse Pulse Pulse Resp BP 07/30/24 14:53 36.5 C 79 18 07/30/24 14:37 74 16 07/30/24 14:22 80 16 07/30/24 14:07 84 84 16 07/30/24 12:32 36.4 C L 85 85 16 07/30/24 07:48 36.6 C 87 18 07/30/24 04:22 36.7 C 86 16 07/29/24 23:55 36.5 C 90 16 07/29/24 19:39 36.7 C 89 18 07/29/24 15:54 36.3 C L 87 15 07/29/24 15:32 36.7 C 88 14 146/81 H BP Pulse Ox O2 Del Method 07/30/24 14:53 132/82 97 Room Air 07/30/24 14:37 127/84 98 Room Air 07/30/24 14:22 119/67 97 Room Air 07/30/24 14:07 99/63 L 96 Room Air 07/30/24 12:32 130/88 98 Room Air 07/30/24 07:48 133/86 98 Room Air 07/30/24 04:22 112/74 97 Room Air 07/29/24 23:55 129/84 96 Room Air 07/29/24 19:39 136/87 96 Room Air 07/29/24 15:54 141/92 H 96 Room Air 07/29/24 15:32 96 Room Air Pain Intensity Left Upper Abdomen: Pain Intensity: 1 Transfer of Care Handoff Completed per policy Notes Mental Status: alert / awake / arousable Patient Amnestic to Procedure: Yes Nausea / Vomiting: adequately controlled Pain: adequately controlled Airway Patency, RR, SpO2: stable & adequate BP & HR: stable & adequate Hydration State: stable & adequate Anesthetic Complications: no major complications apparent
[2024-07-30] MEDS: SODIUM CHLORIDE 0.9% 1,000 ML IV SCH (15:34)
[2024-07-31 07:13] LABS: Hematocrit (blood only) 37.3 % (37.0-47.0); Hemoglobin 13.1 g/dl (12.0-16.0); Mean Corpuscular Hemoglobin 34.9 pg (25.0-34.0); Mean Corpuscular Hgb Conc 35.1 g/dL (32.0-36.0); Mean Corpuscular Volume 99.5 fL (80.0-100.0); Mean Platelet Volume 9.9 fL (9.4-12.4); Platelet Count 190 K/uL (130-400); RDW Coefficient of Variation 11.2 % (11.5-14.5); RDW Standard Deviation 41.1 fL (36.4-46.3); Red Blood Count 3.75 M/uL (4.20-5.40); White Blood Count 3.66 K/ul (4.8-10.8)
--- NOTE | 2024-07-31 07:18 | Hospitalist Progress Note ---
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 Abdominal Pain Acute pancreatitis, suspected alcohol related --CT a/p: with concern for pancreatitis, evidence of gallstones/sludge, no evidence of CBD dilatation, possible pancreatic divisum, severe hepatic steatosis --MRCP performed on 07/29 revealing Cholelithiasis without evidence of acute cholecystitis, biliary ductal dilation or choledocholithiasis. Mild acute pancreatitis without acute peripancreatic fluid collection. Pancreatic divisum. The pancreatic duct measures up to 4 mm and there is irregularity with areas of [id number] narrowing at the level of the head and neck. 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 No leukocytosis, Lipase 84 GI Consulted and evaluated pt; appreciate recommendations. EGD performed 07/30 with no source of abdominal pain. Gastric bypass pocket without signs of ulceration. Small hiatal hernia identified. No specimens collected. GI recc OPT EUS for pancreatic duct abnormalities for Intraductal Papillary Mucinous Neoplasm Tolerated clear liquid diet; advance diet s tolerated. Discontinue IV fluids. pain control; Tylenol and Dilaudid PRN (zero doses utilized thus far) encourage alcohol cessation, pt reports after this episode she wishes to talk to Dr. Barker regarding abstinence from alcohol continue famotidine for now Elevated LFTs has been elevated in OP setting since 2022 suspect in setting of severe hepatic steatosis, alcohol use GI consulted; appreciate their guidance Hepatitis panel; Hepatitis A/C antibody negative, IGM pending Alcohol abuse pt reports 1.5 bottles of wine daily for many years and it has been a long time she has gone without missing any days No history of withdrawl symptoms AWSS protocol, gabapentin taper, prn IV ativan IV thiamine/folic acid daily; convert to PO at DC encourage cessation/possible rehab post hospitalization Receptive to [facility] conversation; order placed to discuss Alcohol rehab/recovery; patient very motivated Hx of gatito-en-Y bypass: 25 yrs ago EGD performed today and no source of abdominal pain. Gastric bypass pocket without signs of ulceration. Small hiatal hernia identified. No specimens collected. HTN: controlled/ chronic and stable continue amlodipine and lisinopril Cecal wall thickening: seen on CT abd/pelvis: possible under distension, pt with hx of c scope in 2010 and 2022 unremarkable pt reports change in bowel habits and 8-10lb weight loss since March, would recommend report outpt c-scope Disposition: PCP: Dr. Barker DVT ppx: SQ Lovenox Code Status: FULL CODE Likely DC tomorrow 08/01 if no s/s of withdrawl I spent a total of 58 minutes coordinating, documenting and providing care for this patient excluding time spent in the performance of separately billed services or time spent by another provider/QHP. Admission and Anticipated Discharge Date Admission Date: July 29, 2024 Supervising Physician Co-Signing Physician Notes Patient presenting with acute pancreatitis, in setting of significant alcohol use. Discussed patient with Summer COOK, will continue to advanced diet as tolerated, stop IV fluids as tolerating PO. Will work on alcohol rehab, patient motivated to stop. Will need outpatient f/u with GI in regards to IPMNs and rectal thickening. Anticipate discharge over next 1-2 days. I have seen and discussed the case with the collaborating advanced practitioner. I agree with the above H&P. I have reviewed and confirmed the patients medical history, the findings on physical examination, and the patients diagnosis and treatment plan with Summer COOK and agree with the information documented. I spent a total of 20 minutes coordinating, documenting, and providing care for this patient excluding time spent in the performance of separately billed services. All of the aforementioned completed outside of collaborating with the assigned advanced practitioner for a full treatment plan. I have reviewed the advanced practitioner's documentation, and I agree with, and take responsibility for the plan of care Subjective Patient is feeling significantly better with very intermittent camping in her left quadrant abdominal pain. She tolerated a clear liquid diet; will advance her diet today. Patient denies chest pain, shortness of breath, nausea, vomiting, diarrhea. She does feel constipated but has active bowel sounds Reports she is very motivated to abstain from alcohol but recognizes that since it is a habit when she returns home, she may have challenge; receptive to resources as outlined below She is planning on remaining admitted to make sure any symptoms of alcohol withdraw are behind her. Review of Systems Review of Systems: Neuro: (-) Falls, trauma, slurred speech HEENT: (-) LEAL, dizziness, dysphagia, visual or auditory changes CV: (-) CP, palpitations, swelling Resp: (-) SOB GI: (-) appetite changes, N/V/D, bowel changes. (+) LUQ tenderness without rad iation : (-) urinary changes Skin: (-) rashes Psych: (-) anxiety, depression Physical Exam Physical Exam: Neuro: AAOx4, PERRLA, no aphagia, memory changes, CNII-XII grossly intact HEENT: head normocephalic, moist mucus membranes CV: S1/S2, (-) M/G/R, (-) edema, cap refill < 3 seconds Resp: Lungs CTA in all blanc. On RA GI: Abdomen S/ND, some tenderness LUQ without radiation, Ax4 bowel sounds, (-) CVA tenderness Musculoskeletal: 5/5 B/L UE strength, 5/5 B/L LE strength. No gait disturbance Skin: (-) rashes , (-) erythema. Psych: euthymic mood Results & Data Results & Data Vital Signs (Past 12 Hours) Vital Signs Temp Pulse Resp BP Pulse Ox O2 Del Method 07/30/24 20:01 36.6 C 83 18 149/96 H 98 Room Air Laboratory Results Short CBC 07/31/24 Range/Units 06:39 WBC 3.66 L (4.8-10.8) K/ul Hgb 13.1 (12.0-16.0) g/dl Hct 37.3 (37.0-47.0) % Plt Count 190 (130-400) K/uL BMP 07/31/24 06:39 Sodium 141 Potassium 3.6 D Chloride 105 Carbon Dioxide 28 BUN 2 L Creatinine 0.36 L Glucose 82 Calcium 8.7 Liver Function 07/31/24 Range/Units 06:39 Total Bilirubin 0.5 (0.2-1.0) mg/dl Direct Bilirubin 0.1 (0-0.2) mg/dl AST 66 H (13-39) U/L ALT 44 (7-52) U/L Alkaline Phosphatase 105 H (34-104) U/L Albumin 3.4 (3.4-5.0) gm/dl (2) Pancreatitis Acute pancreatitis complication: unspecified Chronicity: acute Pancreatitis type: unspecified pancreatitis type Qualified Code(s): K85.90 - Acute pancreatitis without necrosis or infection, unspecified
[2024-07-31 07:53] LABS: Albumin Level 3.4 gm/dl (3.4-5.0); BUN Creatinine Ratio 5.6 (10-20); Bilirubin Direct 0.1 mg/dl (0-0.2); Bilirubin,Total 0.5 mg/dl (0.2-1.0); Calcium 8.7 mg/dl (8.6-10.3); Creatinine Clr Calc Pharmacy 114.9 ml/min; Potassium 3.6 mmol/L (3.5-5.1); Total Protein 5.7 gm/dl (6.0-8.3)
--- NOTE | 2024-07-31 10:01 | Gastroenterology Progress Note ---
Date of Service July 31, 2024 Assessment & Plan (1) Pancreatitis: (2) Alcohol abuse: Plan Patient feeling better and tolerating diet. - encouraged alcohol cessation. - okay to advance diet as tolerated. - patient will need an EUS as an outpatient for the MRCP findings of pancreatic duct and IPMNs. This is being set up through our outpatient office. Admission and Anticipated Discharge Date Admission Date: July 29, 2024 Supervising Physician Co-Signing Physician Notes Reviewed above. Agree with plan and management. Subjective Patient tells me that she has been feeling better. she is tolerating a liquid diet and tells me she was told she was going to try advancing this today. she is planning on staying one more day to make sure any symptoms of alcohol withdraw are behind her. EGD 07/30/24 - A small hiatal hernia was present. - Evidence of a gastric bypass was found in the gastric fundus. This was characterized by healthy appearing mucosa. - Gatito-en-Y Loop appears normal. No ulceration Review of Systems Review of Systems: All systems reviewed & are unremarkable except as noted in HPI & below Physical Exam Constitutional: WD/WN, vitals as above Respiratory: normal respiratory effort, lungs clear to auscultation Cardiovascular: Rate/Rhythm: regular rate and regular rhythm Gastrointestinal (Abdomen): normal bowel sounds, soft, nontender, no hepatosplenomegaly Psychiatric: Orientation: alert and oriented x 3 Affect: euthymic affect Results & Data Results & Data Vital Signs (Past 12 Hours) Vital Signs Temp Pulse Resp BP Pulse Ox O2 Del Method 07/31/24 07:37 98.1 F 84 13 145/92 H 99 Room Air Coding Level of Care Code 74898 SUB INP/OBS CARE 04/06MIN Diagnoses Pancreatitis K85.90 Acute pancreatitis complication: unspecified Chronicity: acute Pancreatitis type: unspecified pancreatitis type Alcohol abuse F10.10 (1) Pancreatitis Acute pancreatitis complication: unspecified Chronicity: acute Pancreatitis type: unspecified pancreatitis type Qualified Code(s): K85.90 - Acute pancreatitis without necrosis or infection, unspecified
[2024-07-31] MEDS: GABAPENTIN 600 MG TAB PO SCH (13:57)
[2024-08-01 07:10] VITALS: RESP 14; TEMP 98.4; O2SAT 97
[2024-08-01 07:37] LABS: Hematocrit (blood only) 36.6 % (37.0-47.0); Mean Corpuscular Hemoglobin 34.6 pg (25.0-34.0); Mean Corpuscular Hgb Conc 35.5 g/dL (32.0-36.0); Mean Corpuscular Volume 97.3 fL (80.0-100.0); Mean Platelet Volume 9.7 fL (9.4-12.4); Platelet Count 219 K/uL (130-400); RDW Standard Deviation 39.7 fL (36.4-46.3); Red Blood Count 3.76 M/uL (4.20-5.40); White Blood Count 3.29 K/ul (4.8-10.8)
[2024-08-01 07:54] LABS: Albumin Globulin Ratio 1.5 (0.9-2); Albumin Level 3.3 gm/dl (3.4-5.0); BUN Creatinine Ratio 9.8 (10-20); Bilirubin,Total 0.4 mg/dl (0.2-1.0); Calcium 9.1 mg/dl (8.6-10.3); Creatinine Clr Calc Pharmacy 100.9 ml/min; Globulin 2.2 gm/dl (2.5-4.0); Potassium 3.1 mmol/L (3.5-5.1); Total Protein 5.5 gm/dl (6.0-8.3)
--- NOTE | 2024-08-01 10:51 | Discharge Summary ---
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 Abdominal Pain Acute pancreatitis, suspected alcohol related --CT a/p: with concern for pancreatitis, evidence of gallstones/sludge, no evidence of CBD dilatation, possible pancreatic divisum, severe hepatic steatosis --MRCP performed on 07/29 revealing Cholelithiasis without evidence of acute cholecystitis, biliary ductal dilation or choledocholithiasis. Mild acute pancreatitis without acute peripancreatic fluid collection. Pancreatic divisum. The pancreatic duct measures up to 4 mm and there is irregularity with areas of [id number] narrowing at the level of the head and neck. 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 No leukocytosis, Lipase 84 GI Consulted and evaluated pt- EGD on 07/30 revealed gastric bypass pocket without signs of ulceration. Small hiatal hernia identified. No specimens collected. Recommending outpatient EUS for pancreatic duct abnormalities for Intraductal Papillary Mucinous Neoplasm Diet advanced to low fat, tolerating without issue Encourage strict alcohol cessation as below Continue home famotidine Alcohol abuse Reports 1.5 bottles of wine daily for many years and it has been a long time she has gone without missing any days No history of withdrawal symptoms AWSS protocol, gabapentin taper, prn IV ativan Encourage strict continued cessation - patient highly motivated Completing gabapentin taper this evening, has been in contact with Dr. Barker who prescribed Naltrexone Counselled on importance of social support during transition, psych liaison recommending [facility], AA Daily thiamine and folic acid supplementation Transaminitis Elevated in outpatient setting since 2022 2/ severe hepatic steatosis, alcohol use GI consulted; appreciate their guidance Hepatitis panel; Hepatitis A/C antibody negative, IGM pending Hx of gatito-en-Y bypass 25 yrs ago, EGD as above HTN Controlled and stable. Continue amlodipine and lisinopril Cecal wall thickening Seen on CT abd/pelvis: possible under distension, pt with hx of c scope in 2010 and 2022 unremarkable Pt reports change in bowel habits and 8-10lb weight loss since March, would recommend report outpt colonoscopy and GI follow-up Notes For Next Care Provider Acute pancreatitis 2/2 alcohol use. GI recommending outpatient EUS for IPMNs, etoh cessation Medication Changes From Visit Complete gabapentin taper, thiamine and folic acid supplementation Admission HPI Per Admitting Provider This is a 64-year-old female with significant past medical history of Gatito-en-Y bypass 20 years ago, alcohol abuse, GERD, history of migraine and depression who presents to ED secondary to abdominal pain for a few weeks. Hx obtained from Pt, ed provider and outpt chart review. Sx came on gradually with reported LUQ and epigastric abd pain. Pain has been constant, waxes and wanes in severity, worse with movement, better with rest and has never had this before. Currently her pain is a 3/10. She saw her PCP on 07/26 and was started on famotidine bid and sucralfate. This has not improved her sx. Her had lab work done that day as well. She was called this morning with the results and due to her sx persisting she was referred to the ED for further evaluation. Her op lab work was reviewed and revealed and elevated lipase at 433, elevated AST 109, ALT 140, t bili 0.7. She reports early satiety, poor appetite, food intolerance. She states eating does not make pain worse. She has been tolerating liquids and yogurt only. She states she drinks 6 glasses of wine a day. Her last drink was last night. She has not gone more than 6 hrs with out an alcoholic drink. She has done this for several years. She knows she needs to quit. The past few days she is down to 3 drink a day due to her abd pain. SHe reports some nausea and dry heaves. She denies f/c/s, chest pain, sob, dizziness, lightheaded, hematemesis, dark tary stool, vomiting, dysuria, increased urg/freq with urination or melena. She most recently was treated with a course of oral bactrim for a E. Coli UTI and her sx have since resolved. Admission Exam Per Admitting Provider Constitutional: WD/WN, vitals as above, NAD, sitting up in bed, pleasant, conversing easily Head: Normocephalic, Atraumatic Eyes: PERRL, conjunctivae normal, anicteric sclerae ENMT: external ear and nose normal, oropharynx normal Neck: trachea midline, no thyromegaly normal visual inspection Respiratory: normal respiratory effort, lungs clear to auscultation, no wheeze, rales, rhonchi. Normal insp/exp effort, no accessory muscle use Cardiovascular: RRR, no murmur, no edema Chest: normal inspection of chest Abdomen: normal bowel sounds, soft, TTP LUQ, no rebound, no hepatosplenomegaly Musculoskeletal: no cyanosis or clubbing, extremities motor strength 5/5 Skin: no rashes, warm and dry normal turgor Neurologic: , no face palsy, no dysarthria CN's II-XI intact bilaterally and moves all extremities Psychiatric: A+Ox3, euthymic affect Discharge Exam Gen: WD/WN, NAD, sitting in bedside chair, A&Ox3 HEENT: Normocephalic, atraumatic, conjunctivae moist, sclerae anicteric, mucous membranes moist Lung: Clear to Auscultation bilaterally, no wheezes/rales/rhonchi Heart: Regular rate, regular rhythm Abdomen: Soft, NT, ND +BS x 4 Extremities: no edema Skin: Warm, no rash Updated Medication List Medication Instructions Recorded Confirmed Type amlodipine 2.5 mg tablet 2.5 mg PO QAM 07/29/24 07/29/24 History escitalopram oxalate 10 mg tablet 10 mg PO DAILY 07/29/24 07/29/24 History famotidine 40 mg tablet 40 mg PO BID 07/29/24 07/29/24 History lisinopril 40 mg tablet 40 mg PO QAM 07/29/24 07/29/24 History sucralfate 1 gram tablet 1 g PO QID 07/29/24 07/29/24 History sumatriptan succinate 100 mg tablet 100 mg PO DIRECTED PRN HEADACHES 07/29/24 07/29/24 History folic acid 1 mg tablet 1 mg PO DAILY #30 tabs 08/01/24 Rx gabapentin 600 mg tablet 600 mg PO Q24H #1 tab 08/01/24 Rx thiamine HCl (vitamin B1) 100 mg 100 mg PO DAILY #30 tabs 08/01/24 Rx tablet Hospital Stay Data Consultations 07/29/24 12:00 ED Decision to Admit Stat 07/29/24 13:11 Consult Gastroenterology Routine 07/30/24 16:11 Consult Behavioral Health Liaison Routine Procedures Performed Operation Date: 07/30/24 16:55 Actual Procedures p Esophagogastroduodenoscopy - Drew Hyatt MD Diagnostic Imagining Performed 07/29/24 09:46 CT abd pelvis IV con only Stat 07/29/24 13:12 MR MRCP Routine Pending Results Patient Have Any Pending Studies at Discharge: No Discharge Instructions Given to Patient (Per Discharging Provider) You were admitted for abdominal pain and found to have acute pancreatitis. MRCP (07/29) revealing cholelithiasis without evidence of acute cholecystitis, biliary ductal dilation or choledocholithiasis. Mild acute pancreatitis without acute peripancreatic fluid collection. Pancreatic divisum. The pancreatic duct measures up to 4 mm and there is irregularity with areas of [id number] narrowing at the level of the head and neck. 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 GI performed EGD on 07/30 which showed gastric bypass pocket without signs of ulceration. Small hiatal hernia identified Encourage strict alcohol cessation - will complete gabapentin taper this evening and Dr. Barker has prescribed Naltrexone. Recommend counseling through [facility] and recommend AA for support during significant transition. Continue thiamine and folic acid supplementation to optimize nutrition PENDING TEST RESULTS: None RECOMMENDATIONS FOR FOLLOW-UP: Follow up with PCP as scheduled. Follow up with GI service - recommending outpatient EUS for pancreatic duct abnormalities for Intraductal Papillary Mucinous Neoplasm (IPMNs) Continue medication regimen as scheduled aside from changes noted above. OTHER INSTRUCTIONS: Seek medical attention if you have: * temperature above 101 * chest pain or trouble breathing * abdominal pain, nausea, vomiting * diarrhea, dark stools or bloody stools * any unanswered questions or concerns Call 911 if symptoms are severe. Please take good care of yourself. Call if you have any questions or problems. You can reach a [facility] hospitalist on duty at [facility] 24 hours a day by calling [phone]. Total Time Total Time Spent Total Time Spent (In Minutes): 45 Supervising Physician Co-Signing Physician Notes Patient seen and examined at bedside. Patient sitting comfortably, clothed and ready to go home. Patient will benefit from outpatient alcohol rehab, and f/u with GI in regards to IPMNs and colorectal thickening noted on imaging. Tolerating solids well at time of discharge, ate lunch without pain or symptoms. I have seen and discussed the case with the collaborating advanced practitioner. I agree with the above H&P. I have reviewed and confirmed the patients medical history, the findings on physical examination, and the patients diagnosis and treatment plan with Florencia Sahu PA-C and agree with the information documented. I spent a total of 20 minutes coordinating, documenting, and providing care for this patient excluding time spent in the performance of separately billed services. All of the aforementioned completed outside of collaborating with the assigned advanced practitioner for a full treatment plan. I have reviewed the advanced practitioner's documentation, and I agree with, and take responsibility for the plan of care
[2024-08-01 11:02] LABS: Hepatitis A Antibody IgM NON-REACTIVE (NON-REACTIVE); Hepatitis B Core Antibody IgM NON-REACTIVE (NON-REACTIVE)
[2024-08-01 12:07] VITALS: BP 149/96; PULSE 86
[2024-08-02] MEDS ORDERED: GABAPENTIN 600 MG TAB PO SCH (01:30)
== END 2024-08-01 12:28 | disposition home or self-care (01) | DRG 439 ==
LOC: ED 09:34 → 3N 12:21 → SUATTDRO 12:21 → 3N 15:32